=== PATIENT | female | born 1950 | race Caucasian/White ===

== ENCOUNTER 2020-02-23 13:39 | Inpatient (IN) | payer MEDICARE ==
[2020-02-23] MEDS ORDERED: SODIUM CHLORIDE 0.9% 1,000 ML IV STA (14:09)
[2020-02-23] MEDS ORDERED: MORPHINE SULFATE 4 MG/ML SYRINGE IV STA (14:10)
[2020-02-23] MEDS ORDERED: ONDANSETRON 4 MG/2 ML VIAL IVP STA (14:10)
--- NOTE | 2020-02-23 14:13 | ED ---
General Adult HPI - General Chief complaint: Nausea/Vomiting/Diarrhea Stated complaint: Dehydrated,Low BP Time Seen by Provider: 02/23/20 13:58 Source: patient, RN notes reviewed, old records reviewed Mode of arrival: ambulatory Limitations: no limitations - History of Present Illness Initial comments: 79-year-old female presenting for evaluation of abdominal pain, nausea vomiting. Patient was seen at urgent care and sent to the emergency department for evaluation of a symptoms as well as dehydration. Patient's denies chest pain or dyspnea. She complains of nausea and diffuse abdominal pain which is crampy in nature. This is been ongoing for the past 4 days. She states she had one small bowel movement, no diarrhea, she states she is still passing gas. 4 episodes of vomiting today. She denies cough or URI symptoms. Denies fever. Denies dysuria. - Related Data Allergies Allergy/AdvReac Type Severity Reaction Status Date / Time No Known Allergies Allergy Verified 02/23/20 13:47 Review of Systems ROS Statement: Those systems with pertinent positive or pertinent negative responses have been documented in the HPI. ROS Other: All systems not noted in ROS Statement are negative. Past Medical History Additional Past Medical History / Comment(s): congenital heart defecits History of Any Multi-Drug Resistant Organisms: None Reported Past Surgical History: Cardiac Valve Replacement, Coronary Bypass/CABG, Hernia Repair Past Psychological History: No Psychological Hx Reported Smoking Status: Never smoker Past Alcohol Use History: None Reported Past Drug Use History: None Reported General Exam Limitations: no limitations General appearance: alert, in no apparent distress Head exam: Present: atraumatic, normocephalic Eye exam: Present: normal appearance, PERRL ENT exam: Present: mucous membranes dry Neck exam: Present: normal inspection. Absent: tenderness, meningismus Respiratory exam: Present: normal lung sounds bilaterally. Absent: respiratory distress, wheezes Cardiovascular Exam: Present: normal rhythm, tachycardia, systolic murmur GI/Abdominal exam: Present: distended, tenderness. Absent: guarding, rebound Back exam: Present: normal inspection, full ROM Neurological exam: Present: alert, oriented X3, CN II-XII intact. Absent: motor sensory deficit Psychiatric exam: Present: normal affect, normal mood Skin exam: Present: warm, dry, intact. Absent: cyanosis, diaphoretic Course Vital Signs 02/23/20 02/23/20 13:43 14:37 Temperature 97.5 F L 99.0 F Pulse Rate 117 H Respiratory 18 Rate Blood Pressure 97/63 O2 Sat by Pulse 93 L Oximetry EKG Findings - EKG Comments: EKG Findings:: EKG: Sinus tachycardia, PVC T-wave inversion in V2 and V3, no ST segment elevation, rate of 111, AL interval 188, QRS duration 90, QTC 465 Medical Decision Making - Medical Decision Making 69-year-old female presenting with abdominal pain and vomiting. History of valve replacement on Coumadin and congestive heart defect with history of multiple cardiac procedures. Patient states this is an aortic valve mechanical. Patient has a distended abdomen with mild tenderness to palpation. Significant lab abnormalities including leukocytosis, white blood cell count 22, INR is elevated at 6.3, she is a sodium of 140, potassium of 3.0 which is replaced. She has a lactic acid of 5.5 which is significantly elevated. She has a hyperbilirubinemia at 7.2 and a transaminitis. She has greater than 20,000 and lipase consistent with pancreatitis. CT shows acute cholecystitis and dilated common bile duct, concern for ascending cholangitis, gallstone pancreatitis, and acute cholecystitis. IV antibiotics were initiated in the emergency department. I discussed case with the admitting physician Dr. Holland, general surgery Dr. Jara, gastroenterology Dr. Astorga, and the tank house operator Dr. Chisholm, and Dr. Astorga from cardiology. Ultrasound is pending. - Lab Data Result diagrams: 02/23/20 14:15 02/23/20 14:15 Lab Results 02/23/20 02/23/20 02/23/20 Range/Units 14:14 14:15 14:15 WBC 22.4 H (3.8-10.6) k/uL RBC 5.46 H (3.80-5.40) m/uL Hgb 14.1 (11.4-16.0) gm/dL Hct 42.7 (34.0-46.0) % MCV 78.3 L (80.0-100.0) fL MCH 25.8 (25.0-35.0) pg MCHC 33.0 (31.0-37.0) g/dL RDW 14.4 (11.5-15.5) % Plt Count 196 (150-450) k/uL Neutrophils % (Manual) 83 % Band Neutrophils % 12 % Lymphocytes % (Manual) 2 % Monocytes % (Manual) 3 % Neutrophils # (Manual) 21.20 H (1.3-7.7) k/uL Lymphocytes # (Manual) 0.45 L (1.0-4.8) k/uL Monocytes # (Manual) 0.67 (0-1.0) k/uL Nucleated RBCs 0 (0-0) /100 WBC Manual Slide Review Performed Toxic Vacuolation Present Hypochromasia Slight PT (9.0-12.0) sec INR (<1.2) APTT (22.0-30.0) sec Sodium 130 L (137-145) mmol/L Potassium 3.0 L (3.5-5.1) mmol/L Chloride 95 L (98-107) mmol/L Carbon Dioxide 19 L (22-30) mmol/L Anion Gap 16 mmol/L BUN 18 H (7-17) mg/dL Creatinine 1.14 H (0.52-1.04) mg/dL Est GFR (CKD-EPI)AfAm 57 (>60 ml/min/1.73 sqM) Est GFR (CKD-EPI)NonAf 49 (>60 ml/min/1.73 sqM) Glucose 133 H (74-99) mg/dL Plasma Lactic Acid David (0.7-2.0) mmol/L Calcium 9.0 (8.4-10.2) mg/dL Total Bilirubin 7.2 H (0.2-1.3) mg/dL AST 432 H (14-36) U/L ALT 530 H (4-34) U/L Alkaline Phosphatase 396 H (38-126) U/L Troponin I (0.000-0.034) ng/mL Total Protein 7.2 (6.3-8.2) g/dL Albumin 4.2 (3.5-5.0) g/dL Amylase 5656 H* (30-110) U/L Lipase >69049 H (23-300) U/L Urine Color Light Yellow Urine Appearance Cloudy H (Clear) Urine pH 7.5 (5.0-8.0) Ur Specific [place] 1.009 (1.001-1.035) Urine Protein Negative (Negative) Urine Glucose (UA) Negative (Negative) Urine Ketones Negative (Negative) Urine Blood Negative (Negative) Urine Nitrite Negative (Negative) Urine Bilirubin Negative (Negative) Urine Urobilinogen <2.0 (<2.0) mg/dL Ur Leukocyte Esterase Small H (Negative) Urine RBC 1 (0-5) /hpf Urine WBC 9 H (0-5) /hpf Ur Squamous Epith Cells 13 H (0-4) /hpf Amorphous Sediment Occasional H (None) /hpf Urine Mucus Rare H (None) /hpf 02/23/20 02/23/20 02/23/20 Range/Units 14:15 14:15 14:15 WBC (3.8-10.6) k/uL RBC (3.80-5.40) m/uL Hgb (11.4-16.0) gm/dL Hct (34.0-46.0) % MCV (80.0-100.0) fL MCH (25.0-35.0) pg MCHC (31.0-37.0) g/dL RDW (11.5-15.5) % Plt Count (150-450) k/uL Neutrophils % (Manual) % Band Neutrophils % % Lymphocytes % (Manual) % Monocytes % (Manual) % Neutrophils # (Manual) (1.3-7.7) k/uL Lymphocytes # (Manual) (1.0-4.8) k/uL Monocytes # (Manual) (0-1.0) k/uL Nucleated RBCs (0-0) /100 WBC Manual Slide Review Toxic Vacuolation Hypochromasia PT 63.5 H (9.0-12.0) sec INR 6.3 H* (<1.2) APTT 40.8 H (22.0-30.0) sec Sodium (137-145) mmol/L Potassium (3.5-5.1) mmol/L Chloride (98-107) mmol/L Carbon Dioxide (22-30) mmol/L Anion Gap mmol/L BUN (7-17) mg/dL Creatinine (0.52-1.04) mg/dL Est GFR (CKD-EPI)AfAm (>60 ml/min/1.73 sqM) Est GFR (CKD-EPI)NonAf (>60 ml/min/1.73 sqM) Glucose (74-99) mg/dL Plasma Lactic Acid David 5.5 H* (0.7-2.0) mmol/L Calcium (8.4-10.2) mg/dL Total Bilirubin (0.2-1.3) mg/dL AST (14-36) U/L ALT (4-34) U/L Alkaline Phosphatase (38-126) U/L Troponin I <0.012 (0.000-0.034) ng/mL Total Protein (6.3-8.2) g/dL Albumin (3.5-5.0) g/dL Amylase (30-110) U/L Lipase (23-300) U/L Urine Color Urine Appearance (Clear) Urine pH (5.0-8.0) Ur Specific [place] (1.001-1.035) Urine Protein (Negative) Urine Glucose (UA) (Negative) Urine Ketones (Negative) Urine Blood (Negative) Urine Nitrite (Negative) Urine Bilirubin (Negative) Urine Urobilinogen (<2.0) mg/dL Ur Leukocyte Esterase (Negative) Urine RBC (0-5) /hpf Urine WBC (0-5) /hpf Ur Squamous Epith Cells (0-4) /hpf Amorphous Sediment (None) /hpf Urine Mucus (None) /hpf Critical Care Time Critical Care Time: Yes Total Critical Care Time: 35 Disposition Clinical Impression: Dehydration, Acute cholecystitis, Pancreatitis, Ascending cholangitis, Mechanical heart valve present, Supratherapeutic INR Disposition[facility] Condition: Serious Is patient prescribed a controlled substance at d/c from ED?: No Referrals: Nonstaff,Physician [Primary Care Provider] - 1-2 days Decision to Admit Reason: Admit from EC Decision Date: 02/23/20 Decision Time: 16:21
[2020-02-23 14:47] LABS: AST 432 U/L (14-36); African American GFR (CKD) 57 (>60 ml/min/1.73 sqM); Albumin 4.2 g/dL (3.5-5.0); Alkaline Phosphatase 396 U/L (38-126); Anion Gap 16 mmol/L; Blood Urea Nitrogen 18 mg/dL (7-17); Carbon Dioxide 19 mmol/L (22-30); Chloride 95 mmol/L (98-107); Glucose 133 mg/dL (74-99); Non-African American GFR(CKD) 49 (>60 ml/min/1.73 sqM); Sodium 130 mmol/L (137-145); Total Bilirubin 7.2 mg/dL (0.2-1.3); Total Protein 7.2 g/dL (6.3-8.2)
--- NOTE | 2020-02-23 14:49 | XR ---
EXAMINATION TYPE: XR KUB DATE OF EXAM: 02/23/2020 COMPARISON: NONE HISTORY: Pain TECHNIQUE: Single supine KUB image of the abdomen is obtained FINDINGS: Small bowel demonstrates no evidence for dilatation or air fluid levels. Gas and fecal material is seen in non-distended colon. No convincing evidence for pneumoperitoneum. No unusual calcifications. The lung bases are clear. The osseous structures are intact. IMPRESSION: 1. Overall nonobstructive bowel gas pattern.
[2020-02-23 14:56] LABS: ALT 530 U/L (4-34); HCT 42.7 % (34.0-46.0); HGB 14.1 gm/dL (11.4-16.0); Hypochromasia Slight; MCH 25.8 pg (25.0-35.0); MCV 78.3 fL (80.0-100.0); Mean Platelet Volume 7.9; Platelet Count 196 k/uL (150-450); RBC 5.46 m/uL (3.80-5.40); RDW 14.4 % (11.5-15.5); WBC 22.4 k/uL (3.8-10.6)
[2020-02-23 14:56] LABS: Color,Urine Light Yellow
[2020-02-23] MEDS ORDERED: SODIUM CHLORIDE 0.9% 500 ML 500 ML IV ONE ×2 (14:56→15:20)
[2020-02-23 14:57] LABS: Appearance,Urine Cloudy (Clear); PH, Urine 7.5 (5.0-8.0)
[2020-02-23 14:58] LABS: Specific Gravity,Urine 1.009 (1.001-1.035)
[2020-02-23 14:59] LABS: Glucose,Urine (UA) Negative (Negative); Ketones,Urine Negative (Negative); Protein,Urine Negative (Negative)
[2020-02-23 15:00] LABS: Bilirubin,Urine Negative (Negative); Blood,Urine Negative (Negative)
[2020-02-23 15:01] LABS: Nitrite,Urine Negative (Negative); Urobilinogen,Urine <2.0 mg/dL (<2.0)
[2020-02-23 15:02] LABS: Leukocyte Esterase,Urine Small (Negative); WBC,Urine 9 /hpf (0-5)
[2020-02-23 15:03] LABS: RBC,Urine 1 /hpf (0-5); Squamous Epithelial Cell,Urine 13 /hpf (0-4)
[2020-02-23 15:04] LABS: Amorphous Sediment,Urine Occasional /hpf; Mucus,Urine Rare /hpf
[2020-02-23] MEDS ORDERED: PIPERACILLIN-TAZOBACTAM 3.375 GM in SODIUM CHLORIDE 0.9% 100 ML IVPB STA (15:19)
[2020-02-23 15:20] LABS: Band Neutrophils % 12 %; Lymphocytes # (M) 0.45 k/uL (1.0-4.8); Monocytes # (M) 0.67 k/uL (0-1.0); Neutrophils % (M) 83 %; Nucleated Red Blood Cells 0 /100 WBC (0-0); Total Cells Counted 100
[2020-02-23 15:22] LABS: Partial Thromboplastin Time 40.8 sec (22.0-30.0); Prothrombin Time 63.5 sec (9.0-12.0)
[2020-02-23 15:24] LABS: INR 6.3 (<1.2)
[2020-02-23 15:27] LABS: Toxic Vacuolation Present
[2020-02-23 15:30] LABS: Amylase 5656 U/L (30-110)
[2020-02-23] MEDS: SODIUM CHLORIDE 0.9% 1,000 ML IV SCH (15:45)
--- NOTE | 2020-02-23 15:50 | CT ---
EXAMINATION TYPE: CT abdomen pelvis w con DATE OF EXAM: 02/23/2020 COMPARISON: None HISTORY: ABDOMINAL PAIN CT DLP: 1529 mGycm CONTRAST: CT scan of the abdomen and pelvis is performed without Oral Contrast and with IV Contrast, patient in jected with 100 mL of Isovue 300. FINDINGS: LUNG BASES-: No visible nodule. No infiltrate. LIVER/GB: The gallbladder is distended with mildly thickened wall and pericholecystic fluid. Common bile duct is dilated at approximately 1.5 cm. Obstructing calculus is not identified with certainty. Mild intrahepatic biliary ductal prominence. No space occupying hepatic lesion. PANCREAS: No inflammation. No distinct mass. SPLEEN: No splenic enlargement. No lesion seen. ADRENALS: No nodule. No thickening. KIDNEYS/BLADDER: No hydronephrosis. No nephrolithiasis. No distinct renal mass. Urinary bladder g rossly unremarkable. BOWEL: Normal appendix. Normal bowel caliber. No inflammation. GENITAL ORGANS: Uterine mass may reflect leiomyomatous change. Consider ultrasound correlation. No o varian masses seen. LYMPH NODES: No greater than 1cm abdominal or pelvic lymph nodes are appreciated. AORTA: No significant abnormality. OSSEOUS STRUCTURES: No significant abnormality is seen. OTHER: No significant additional abnormality is seen. IMPRESSION: 1. Correlate for cholecystitis. 2. Uterine masses may reflect underlying leiomyomatous change. Consider ultrasound correlation to exc lude other possibilities.
[2020-02-23] MEDS ORDERED: NALOXONE 0.4 MG/ML 1 ML VIAL IV PRN (16:00)
--- NOTE | 2020-02-23 16:31 | US ---
EXAMINATION TYPE: US gallbladder DATE OF EXAM: 02/23/2020 COMPARISON: CT 2019 CLINICAL HISTORY: ab pain. Nausea EXAM MEASUREMENTS: Liver Length: 15.5 cm Gallbladder Wall: 0.3 cm CBD: 1.5 cm Right Kidney: 10.1 x 5.4 x 5.5 cm Pancreas: duct seen measuring 0.4cm Liver: attenuating, mildly heterogeneous, mild intrahepatic ductal dilation Gallbladder: hydropic, multiple small echogenic shadowing foci, wall measures wnl Evidence for sonographic Mosley's sign: no CBD: dilated Right Kidney: wnl IMPRESSION: Fatty liver with mild hepatic ductal dilatation. Gallbladder is hydropic with gallbladder wall thicke sameera and small gallstones. Common bile duct dilated. Rule out acute cholecystitis.
[2020-02-23] MEDS: POTASSIUM CHLORIDE 10 MEQ in WATER FOR INJECTION 1 100ML.BAG IVPB SCH ×4 (16:36→22:26)
[2020-02-23] MEDS ORDERED: PHYTONADIONE 10 MG in SODIUM CHLORIDE 0.9% 50 ML IVPB STA (16:42)
[2020-02-23 18:38] LABS: Amorphous Sediment,Urine Rare /hpf; Appearance,Urine Cloudy (Clear); Bacteria,Urine Rare /hpf; Bilirubin,Urine Negative (Negative); Blood,Urine Negative (Negative); Color,Urine Light Yellow; Glucose,Urine (UA) Negative (Negative); Hyaline Casts,Urine 1 /lpf (0-2); Ketones,Urine Negative (Negative); Leukocyte Esterase,Urine Small (Negative); Mucus,Urine Rare /hpf; Nitrite,Urine Negative (Negative); PH, Urine 7.5 (5.0-8.0); Protein,Urine Negative (Negative); RBC,Urine 2 /hpf (0-5); Specific Gravity,Urine 1.009 (1.001-1.035); Squamous Epithelial Cell,Urine <1 /hpf (0-4); Urobilinogen,Urine <2.0 mg/dL (<2.0); WBC,Urine 30 /hpf (0-5)
[2020-02-23 18:43] LABS: Glucose,Whole Blood 117 mg/dL (75-99)
--- NOTE | 2020-02-23 18:54 | P.HPIM ---
History of Present Illness H&P Date: 02/23/20 Chief Complaint: belly pain Patient is a 69-year-old female with history of congenital heart disease status post mechanical aortic valve replacement 2 on Coumadin therapy, hypothyroidism, and menopausal symptoms continued on estrogen cream presented to the emergency department with complaints of abdominal pain. Patient is visiting here from [place]. In the emergency department she underwent an extensive evaluation. On arrival she was found to be tachycardic with a pulse of 117 and hypotensive with a blood pressure of 97/63. Laboratory analysis showed a lactic acid of 5.5, INR 6.3, white blood cell count 22.4, bilirubin 7.2, AST 432, ALT 5:30, off: Phosphatase 369, amylase 5656, and lipase of greater than 20,000. Gallbladder ultrasound showed mild hepatic duct dilatation with hydrophilic gallbladder and gallbladder wall thickening with small gallstones or dilated common bile duct. CT abdomen and pelvis showed cholecystitis with uterine mass reflecting underlying leiomyomatous changes. She was subsequently diagnosed with ascending cholangitis with sepsis. She was started on IV fluids and Zosyn. Cardiology was contacted for need for INR reversal, GI was contacted and plans for ERCP, surgery was contacted, and critical care was contacted. Arrangements were made for admission to the ICU. Abdomainal pain epigastric 9/10 constant for 5 -7 days, tylenol not helping, eating seems to make it worse today Vomiting 2 times 5 days ago and then 4 times today, worse with eating. Decreased urination today, darker in color, no odor No change in stool consistency or color. One day of fever 101 at home + fatigued and tired 6 pound weight loss without trying over the last several months No eating or sleeping for 5 days. No shortness of breath or cough. No recent changes in medications. HX of congenital heart disease surgery as a child, then repeat surgery and finally 2 aortic valve replacements. Follows with Dr. Easton out of [place]. Primary care physician is Dr. Amada Kong out of [place]. Review of Systems Pertinent positives and negatives as discussed in HPI, a complete review of systems was performed and all other systems are negative. Past Medical History Past Medical History: Hyperlipidemia Additional Past Medical History / Comment(s): congenital heart defecits, hypothyroidism History of Any Multi-Drug Resistant Organisms: None Reported Past Surgical History: Cardiac Valve Replacement, Hernia Repair Additional Past Surgical History / Comment(s): umbilica herina reparin, Mechanical aortic valve replacement X 2 and congential heart disease surgery Past Psychological History: No Psychological Hx Reported Smoking Status: Never smoker Past Alcohol Use History: None Reported Past Drug Use History: None Reported - Past Family History Father Additional Family Medical History / Comment(s): bladder cancer, tobacco abuse Mother Family Medical History: Hypertension Brother(s) Additional Family Medical History / Comment(s): of AIDS. Seocnd brother with CLL Medications and Allergies Home Medications Medication Instructions Recorded Confirmed Type Biest 1 (50/50)Mg Cream 1 applic TOPICAL HS 02/23/20 02/23/20 History Thyroid,Pork [[place] Thyroid] 90 mg PO DAILY 02/23/20 02/23/20 History Warfarin [Coumadin] 2.5 mg PO Q48H 02/23/20 02/23/20 History Warfarin [Coumadin] 5 mg PO Q48H 02/23/20 02/23/20 History Allergies Allergy/AdvReac Type Severity Reaction Status Date / Time No Known Allergies Allergy Verified 02/23/20 17:00 Physical Exam Osteopathic Statement: *. No significant issues noted on an osteopathic structural exam other than those noted in the History and Physical/Consult. Vitals: Vital Signs Temp Pulse Resp BP Pulse Ox 02/23/20 14:37 99.0 F 02/23/20 13:43 97.5 F L 117 H 18 97/63 93 L Intake and Output 02/23/20 02/23/20 02/23/20 06:59 14:59 22:59 Other: Weight 86.183 kg General: Ill-appearing, moderate distress secondary to pain, appears at stated age, normal weight Derm: no unusual rashes/lesions no unusual ecchymoses, warm, dry Head: atraumatic, normocephalic, symmetric Eyes: EOMI, no lid lag, anicteric sclera, pupils equal round reactive to light ENT: Nose and ears atraumatic, no thrush, no pharyngeal erythema Neck: No thyromegaly, no cervical lymphadenopathy, trachea midline, supple Mouth: no lip lesion, mucus membranes dry Cardiovascular: S1S2 tachycardic with grade 3 systolic ejection murmur with mid systolic click, positive posterior tibial pulse bilateral, no edema, capillary refill less than 2 seconds Lungs: Decreased breath sounds bilaterally, no rhonchi, no rales , no accessory muscle use Abdominal: soft, tender to palpation right upper quadrant, no guarding, no appreciable organomegaly, hypoactive bowel sounds Ext: no gross muscle atrophy, muscle strength 5 out of 5 in all 4 extremities grossly, no contractures, Neuro: CN II-XI grossly intact, light touch intact all 4 extremities, finger to nose within normal limits, Psych: Alert, oriented, appears lethargic with difficulty concentrating Results CBC & Chem 7: 02/23/20 14:15 02/23/20 14:15 Labs: Abnormal Lab Results - Last 24 Hours (Table) 02/23/20 02/23/20 02/23/20 Range/Units 14:14 14:15 14:15 WBC 22.4 H (3.8-10.6) k/uL RBC 5.46 H (3.80-5.40) m/uL MCV 78.3 L (80.0-100.0) fL Neutrophils # (Manual) 21.20 H (1.3-7.7) k/uL Lymphocytes # (Manual) 0.45 L (1.0-4.8) k/uL PT (9.0-12.0) sec INR (<1.2) APTT (22.0-30.0) sec Sodium 130 L (137-145) mmol/L Potassium 3.0 L (3.5-5.1) mmol/L Chloride 95 L (98-107) mmol/L Carbon Dioxide 19 L (22-30) mmol/L BUN 18 H (7-17) mg/dL Creatinine 1.14 H (0.52-1.04) mg/dL Glucose 133 H (74-99) mg/dL Plasma Lactic Acid David (0.7-2.0) mmol/L Total Bilirubin 7.2 H (0.2-1.3) mg/dL AST 432 H (14-36) U/L ALT 530 H (4-34) U/L Alkaline Phosphatase 396 H (38-126) U/L Amylase 5656 H* (30-110) U/L Lipase >86750 H (23-300) U/L Urine Appearance Cloudy H (Clear) Ur Leukocyte Esterase Small H (Negative) Urine WBC 9 H (0-5) /hpf Ur Squamous Epith Cells 13 H (0-4) /hpf Amorphous Sediment Occasional H (None) /hpf Urine Mucus Rare H (None) /hpf 02/23/20 02/23/20 Range/Units 14:15 14:15 WBC (3.8-10.6) k/uL RBC (3.80-5.40) m/uL MCV (80.0-100.0) fL Neutrophils # (Manual) (1.3-7.7) k/uL Lymphocytes # (Manual) (1.0-4.8) k/uL PT 63.5 H (9.0-12.0) sec INR 6.3 H* (<1.2) APTT 40.8 H (22.0-30.0) sec Sodium (137-145) mmol/L Potassium (3.5-5.1) mmol/L Chloride (98-107) mmol/L Carbon Dioxide (22-30) mmol/L BUN (7-17) mg/dL Creatinine (0.52-1.04) mg/dL Glucose (74-99) mg/dL Plasma Lactic Acid David 5.5 H* (0.7-2.0) mmol/L Total Bilirubin (0.2-1.3) mg/dL AST (14-36) U/L ALT (4-34) U/L Alkaline Phosphatase (38-126) U/L Amylase (30-110) U/L Lipase (23-300) U/L Urine Appearance (Clear) Ur Leukocyte Esterase (Negative) Urine WBC (0-5) /hpf Ur Squamous Epith Cells (0-4) /hpf Amorphous Sediment (None) /hpf Urine Mucus (None) /hpf Chest x-ray: report reviewed Abdominal x-ray: report reviewed CT scan - abdomen: report reviewed CT scan - pelvis: report reviewed US - abdomen: report reviewed Thrombosis Risk Factor Assmnt - DVT/VTE Prophylaxis DVT/VTE Prophylaxis: Pharmacologic Prophylaxis ordered Assessment and Plan Assessment: Acute cholangitis with sepsis - GI and general surgery consultation, likely ERCP in a.m. -Zosyn -Blood cultures -IV fluids -Nothing by mouth, Ice chips to keep mouth moist -Follow blood pressures closely Acute liver failure likely secondary to obstruction due to gallstones -GI recommendations -Liver ultrasound does show mildly heterogeneous liver -Follow LFTs closely -If does not improve will check hepatitis profiles Coumadin coagulopathy with supratherapeutic INR -Vitamin K and FFP secondary to surgical procedure in a.m. -Repeat INR in 6 hours -Repeat INR in a.m. -Discussed with cardiology who is okay with reversible, will need heparin drip after surgical procedure. Aortic valve replacement secondary to congenital heart disease -Cardiology recommendations appreciated -Check echo in a.m. -Reverse Coumadin -Heparin drip when able after surgical procedure Hyponatremia -Suspect secondary to dehydration -IV fluids -Repeat in a.m. Hypokalemia -Replacement -Repeat in a.m. Metabolic acidosis secondary to lactic acidosis Acute kidney injury versus chronic kidney disease -Avoid nephrotoxic agents -IV fluids -Repeat CMP in a.m. Suspect gallstone pancreatitis which is early onset as no changes on computed tomography scan -Lipase greater than 20,000 -IV fluids -Nothing by mouth -Repeat in a.m. Lactic acidosis secondary to sepsis and liver dysfunction -IV fluids -Follow lactic acid Hypothyroidism -Thyroid medications on hold The patient is admitted with an anticipated greater than 2 midnight stay for evaluation of acute cholangitis with sepsis. Surrogate decision-maker: Brother CODE STATUS: Full DVT prophylaxis: Supratherapeutic INR Discussed with: Patient, nursing, brother, ED physician Anticipated discharge date: 4-[address]: Home A total of 75 minutes was spent on the care of this complex patient more than 50% of the time was spent in counseling and care coordination.
--- NOTE | 2020-02-23 19:50 | CONS ---
CONSULTATION CHIEF COMPLAINT: Ascending cholangitis. This is a 69-year-old lady with history of congenital heart disease, status post surgery when she was very young, and subsequently she has had aortic valve replacement, has had valve replacement with a mechanical valve x2. It is unclear if she had a bypass surgery also. She came to hospital complaining of abdominal pain, nausea and vomiting. Symptoms have been going on for the last 4 days. She has ascending cholangitis and has coagulopathy. Her INR is elevated. Patient is to undergo an ERCP tomorrow. Currently her Coumadin is being reversed with vitamin K and FFP. She lives in [place] and spends her gleason here in [place]. Does not have any local physicians. We do not have her records. The patient has a significantly elevated white cell count and has already received a dose of antibiotic and blood cultures have been done. EKG shows sinus tachycardia, nonspecific ST-T wave changes and PVCs. The patient can proceed with ERCP as has been planned. She is already being covered by antibiotics. I will obtain a 2D echo to assess the prosthetic valve. We really do not have any choice but to reverse her Coumadin at this time, and once the ERCP is done, we can put her on IV heparin while she goes through cholecystectomy; and whenever it is safe, we can put her back on Coumadin. Will follow blood cultures. I will follow the echo. PAST MEDICAL HISTORY: Past medical history is significant for: 1. Congenital heart disease, status post surgery. 2. Status post aortic valve replacement. 3. Hypothyroidism. MEDICATIONS: Medications at home include Coumadin and Synthroid. ALLERGIES: NO KNOWN DRUG ALLERGIES. FAMILY HISTORY: Negative for premature coronary artery disease. SOCIAL HISTORY: Negative for current smoking, EtOH abuse or drug abuse. REVIEW OF SYSTEMS: HEENT is unremarkable. CARDIAC: As described above. RESPIRATORY: As described above. GI: As described above. GENITOURINARY: Negative. ALLERGY: Negative. IMMUNOLOGY: Negative. SKIN: Negative. MUSCULOSKELETAL: Negative. ENDOCRINE: Negative. CONSTITUTIONAL: Significant for fatigue, tiredness. PHYSICAL EXAMINATION: Temperature is 99, heart rate 117, blood pressure 91/60, respiratory rate 18. There is jugular venous distention. Chest exam reveals good air entry bilaterally. Heart exam reveals first and second heart sounds. Mechanical valve sound is heard. ABDOMEN: Soft. Examination of extremities did not reveal any edema. Peripheral pulses are felt. LABS: Hemoglobin is 14, white cell count is 22, platelet count is 196. INR is elevated at 6.3. Potassium is 3. AST, ALT are elevated at 430 and 530. Total bilirubin is 7.2. Lactic acid is 5.3. Lipase is elevated, as is the amylase. ASSESSMENT: 1. Ascending cholangitis. 2. Status post mechanical aortic valve replacement. 3. Coagulopathy. PLAN: Blood cultures, IV antibiotics, 2D echo. Will review records from her adjunct english instructor. Agree with reversing Coumadin. Will bridge her with heparin as she goes through these surgical procedures. No contraindication for surgery under anesthesia at this time. The patient is critically ill and she needs to proceed with surgical interventions expeditiously. LANDRYODL / IJN: [id number] /
[2020-02-23] MEDS: ONDANSETRON 4 MG/2 ML VIAL IVP PRN (22:39)
[2020-02-23] MEDS ORDERED: SODIUM CHLORIDE 0.9% 1,000 ML IV ONE (22:51)
[2020-02-23 23:46] LABS: INR 2.5 (<1.2); Prothrombin Time 24.6 sec (9.0-12.0)
[2020-02-23] MEDS: PIPERACILLIN-TAZOBACTAM 3.375 GM in SODIUM CHLORIDE 0.9% 100 ML IVPB SCH (23:55)
[2020-02-24] MEDS: HYDROmorphone 0.5 MG/0.5 ML SYRINGE IVP PRN ×3 (01:00→07:23)
--- NOTE | 2020-02-24 01:47 | CT ---
EXAMINATION TYPE: CT abdomen pelvis wo con DATE OF EXAM: 02/24/2020 COMPARISON: Yesterday HISTORY: abd pain CT DLP: 1119.4 mGycm Automated exposure control for dose reduction was used. Images were obtained from the diaphragm to the floor the pelvis without contrast. FINDINGS: There is patchy infiltrate and atelectasis at both lung bases. There is no pericardial effusion. Hear t appears slightly enlarged. There is valve surgery at the aortic valve. Liver shows no focal defect. Gallbladder is distended and measures 4.7 cm. The intrahepatic bile duct s are not dilated. Spleen is intact. There is no pancreatic mass. The stomach is intact. There is no adrenal mass. There is contrast in both kidneys from previous CT scan. There is no hydron ephrosis. Ureters are not dilated. There is no retroperitoneal adenopathy. There is Salazar catheter in the urinary bladder. Bladder is empty. There is no evidence of a pelvic mass. Uterus is anteverted. There is no free fluid in the pelvis. Lumbar spine is intact. There is no compression fracture. The b radha pelvis appears intact. There is no mesenteric edema. There is no ascites or free air. There is bilateral perinephric fat str anding. I see no sign of thickened appendix. IMPRESSION: Dilated gallbladder similar to exam yesterday that could relate to cholecystitis. Common bile duct is large and measures 1.3 cm that could relate to chronic gallbladder dysfunction. Intrahepatic bile du cts are not dilated. There is bilateral perinephric fat stranding and edema that is a change compared to yesterday. This c ould relate to nonspecific nephritis. CT scan yesterday shows very little contrast in the renal colle cting system on the delayed images that may indicate some renal failure.
[2020-02-24] MEDS ORDERED: HYDROmorphone 0.5 MG/0.5 ML SYRINGE IVP STA (02:40)
[2020-02-24] MEDS: SODIUM CHLORIDE 0.9% 1,000 ML IV SCH ×3 (02:46→17:12)
[2020-02-24] MEDS: NOREPINEPHRINE 4 MG in SODIUM CHLORIDE 0.9% 250 ML IV SCH ×2 (04:50→17:12)
[2020-02-24 05:08] LABS: Albumin 3.3 g/dL (3.5-5.0); Calcium 7.6 mg/dL (8.4-10.2); Magnesium 1.4 mg/dL (1.6-2.3); Phosphorus 4.8 mg/dL (2.5-4.5); Potassium 3.9 mmol/L (3.5-5.1); Total Bilirubin 7.8 mg/dL (0.2-1.3); Total Protein 6.2 g/dL (6.3-8.2)
[2020-02-24 05:21] LABS: Prothrombin Time 19.1 sec (9.0-12.0)
[2020-02-24 05:39] LABS: HCT 38.5 % (34.0-46.0); Hypochromasia Slight; MCH 24.9 pg (25.0-35.0); MCHC 31.2 g/dL (31.0-37.0); MCV 79.8 fL (80.0-100.0); Mean Platelet Volume 7.8; RBC 4.83 m/uL (3.80-5.40); RDW 15.1 % (11.5-15.5); WBC 16.9 k/uL (3.8-10.6)
[2020-02-24] MEDS ORDERED: Potassium Replacement Protocol 1 EACH MISC MISCELLANE PRN (05:42)
[2020-02-24] MEDS ORDERED: Magnesium Replacement Protocol 1 EACH MISC MISCELLANE PRN (05:44)
[2020-02-24] MEDS: POTASSIUM CHLORIDE 10 MEQ in WATER FOR INJECTION 1 100ML.BAG IVPB SCH ×2 (06:12→07:33)
[2020-02-24] MEDS: MAGNESIUM SULFATE-D5W PMX 1 GM in DEXTROSE/WATER 1 100ML.BAG IVPB SCH ×3 (06:13→11:51)
[2020-02-24 07:12] LABS: Amylase 2143 U/L (30-110)
--- NOTE | 2020-02-24 08:15 | XR ---
EXAMINATION TYPE: XR chest 1V portable DATE OF EXAM: 02/24/2020 Comparison: None Clinical History: 69-year-old female with exertional dyspnea Findings: Median sternotomy wires are present with clips in the mediastinum and a prosthetic cardiac valve. Hea rt upper limits of normal in size. Mild interstitial prominence. Small effusions with bibasilar patch y opacities. Impression: Correlate for mild pulmonary vascular congestion. Small effusions with adjacent bibasilar atelectasis and/or consolidation.
[2020-02-24] MEDS: PANTOPRAZOLE 40 MG/10 ML VIAL IV SCH (08:22)
[2020-02-24 08:23] LABS: Band Neutrophils % 25 %; Lymphocytes # (M) 0.68 k/uL (1.0-4.8); Metamyelocytes # (M) 0.68 k/uL (0); Metamyelocytes % 4 %; Monocytes # (M) 0.34 k/uL (0-1.0); Neutrophils % (M) 66 %; Nucleated Red Blood Cells 0 /100 WBC (0-0); Total Cells Counted 200
[2020-02-24 08:24] LABS: Toxic Granulation Present; Toxic Vacuolation Present
[2020-02-24] MEDS: PIPERACILLIN-TAZOBACTAM 3.375 GM in SODIUM CHLORIDE 0.9% 100 ML IVPB SCH ×3 (08:25→23:35)
[2020-02-24 08:35] LABS: Anisocytosis (M) Present; Platelet Count 99 k/uL (150-450); Poikilocytosis (M) Present
[2020-02-24] MEDS: LACTATED RINGERS 2,000 ML IV SCH ×2 (09:00→11:52)
--- NOTE | 2020-02-24 09:02 | P.GSCN ---
History of Present Illness Consult date: 02/24/20 Reason for Consult: Abdominal pain History of present illness: This a 69-year-old female who has a 5-7 day history of acute abdominal pain. Weston ervin states the pain worsened yesterday. Patient was admitted through the emergency room. Patient was thought to have cholangitis. She does have evidence of thickened gallbladder wall cholelithiasis and pancreatitis suggestive of gallstone pancreatitis. Patient states her pain is quite signific ant the epigastric area radiating to her back. She feels distended and bloated. 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, hypothyroidism History of Any Multi-Drug Resistant Organisms: None Reported Past Surgical History: Cardiac Valve Replacement, Coronary Bypass/CABG, Hernia Repair, Hysterectomy, Tonsillectomy Additional Past Surgical History / Comment(s): umbilica herina reparin, Mechanical aortic valve replacement X 2 and congential heart disease surgery, left fallopian tube removal Past Anesthesia/Blood Transfusion Reactions: No Reported Reaction Past Psychological History: No Psychological Hx Reported Smoking Status: Never smoker Past Alcohol Use History: None Reported Past Drug Use History: None Reported - Past Family History Father Family Medical History: Cancer Additional Family Medical History / Comment(s): bladder cancer, tobacco abuse. Mother Family Medical History: Hypertension Brother(s) Additional Family Medical History / Comment(s): brother of AIDS, seocnd brother with CLL. Medications and Allergies Home Medications Medication Instructions Recorded Confirmed Type Biest 1 (50/50)Mg Cream 1 applic TOPICAL HS 02/23/20 02/23/20 History Thyroid,Pork [Pope Thyroid] 90 mg PO DAILY 02/23/20 02/23/20 History Warfarin [Coumadin] 2.5 mg PO Q48H 02/23/20 02/23/20 History Warfarin [Coumadin] 5 mg PO Q48H 02/23/20 02/23/20 History Allergies Allergy/AdvReac Type Severity Reaction Status Date / Time No Known Allergies Allergy Verified 02/23/20 17:00 Surgical - Exam Vital Signs Temp Pulse Resp BP Pulse Ox 97.5 F L 117 H 18 97/63 93 L 02/23/20 13:43 02/23/20 13:43 02/23/20 13:43 02/23/20 13:43 02/23/20 13:43 - General well developed, well nourished, no distress - Eyes PERRL - ENT normal pinna - Neck no masses - Respiratory normal expansion - Cardiovascular Rhythm: regular - Abdomen Abdomen is distended. There is marked tenderness through the epigastric area. Abdomen: soft Results - Labs 02/24/20 04:30 02/24/20 04:30 Abnormal Lab Results - Last 24 Hours (Table) 02/23/20 02/23/20 02/23/20 Range/Units 14:14 14:15 14:15 WBC 22.4 H (3.8-10.6) k/uL RBC 5.46 H (3.80-5.40) m/uL MCV 78.3 L (80.0-100.0) fL MCH (25.0-35.0) pg Plt Count (150-450) k/uL Neutrophils # (Manual) 21.20 H (1.3-7.7) k/uL Lymphocytes # (Manual) 0.45 L (1.0-4.8) k/uL Metamyelocytes # (Man) (0) k/uL PT (9.0-12.0) sec INR (<1.2) APTT (22.0-30.0) sec Sodium 130 L (137-145) mmol/L Potassium 3.0 L (3.5-5.1) mmol/L Chloride 95 L (98-107) mmol/L Carbon Dioxide 19 L (22-30) mmol/L BUN 18 H (7-17) mg/dL Creatinine 1.14 H (0.52-1.04) mg/dL Glucose 133 H (74-99) mg/dL POC Glucose (mg/dL) (75-99) mg/dL Plasma Lactic Acid David (0.7-2.0) mmol/L Calcium (8.4-10.2) mg/dL Phosphorus (2.5-4.5) mg/dL Magnesium (1.6-2.3) mg/dL Total Bilirubin 7.2 H (0.2-1.3) mg/dL AST 432 H (14-36) U/L ALT 530 H (4-34) U/L Alkaline Phosphatase 396 H (38-126) U/L Total Protein (6.3-8.2) g/dL Albumin (3.5-5.0) g/dL Amylase 5656 H* (30-110) U/L Lipase >81146 H (23-300) U/L Urine Appearance Cloudy H (Clear) Ur Leukocyte Esterase Small H (Negative) Urine WBC 9 H (0-5) /hpf Ur Squamous Epith Cells 13 H (0-4) /hpf Amorphous Sediment Occasional H (None) /hpf Urine Bacteria (None) /hpf Urine Mucus Rare H (None) /hpf 02/23/20 02/23/20 02/23/20 Range/Units 14:15 14:15 17:10 WBC (3.8-10.6) k/uL RBC (3.80-5.40) m/uL MCV (80.0-100.0) fL MCH (25.0-35.0) pg Plt Count (150-450) k/uL Neutrophils # (Manual) (1.3-7.7) k/uL Lymphocytes # (Manual) (1.0-4.8) k/uL Metamyelocytes # (Man) (0) k/uL PT 63.5 H (9.0-12.0) sec INR 6.3 H* (<1.2) APTT 40.8 H (22.0-30.0) sec Sodium (137-145) mmol/L Potassium (3.5-5.1) mmol/L Chloride (98-107) mmol/L Carbon Dioxide (22-30) mmol/L BUN (7-17) mg/dL Creatinine (0.52-1.04) mg/dL Glucose (74-99) mg/dL POC Glucose (mg/dL) (75-99) mg/dL Plasma Lactic Acid David 5.5 H* 5.3 H* (0.7-2.0) mmol/L Calcium (8.4-10.2) mg/dL Phosphorus (2.5-4.5) mg/dL Magnesium (1.6-2.3) mg/dL Total Bilirubin (0.2-1.3) mg/dL AST (14-36) U/L ALT (4-34) U/L Alkaline Phosphatase (38-126) U/L Total Protein (6.3-8.2) g/dL Albumin (3.5-5.0) g/dL Amylase (30-110) U/L Lipase (23-300) U/L Urine Appearance (Clear) Ur Leukocyte Esterase (Negative) Urine WBC (0-5) /hpf Ur Squamous Epith Cells (0-4) /hpf Amorphous Sediment (None) /hpf Urine Bacteria (None) /hpf Urine Mucus (None) /hpf 02/23/20 02/23/20 02/23/20 Range/Units 18:05 18:41 20:04 WBC (3.8-10.6) k/uL RBC (3.80-5.40) m/uL MCV (80.0-100.0) fL MCH (25.0-35.0) pg Plt Count (150-450) k/uL Neutrophils # (Manual) (1.3-7.7) k/uL Lymphocytes # (Manual) (1.0-4.8) k/uL Metamyelocytes # (Man) (0) k/uL PT (9.0-12.0) sec INR (<1.2) APTT (22.0-30.0) sec Sodium (137-145) mmol/L Potassium (3.5-5.1) mmol/L Chloride (98-107) mmol/L Carbon Dioxide (22-30) mmol/L BUN (7-17) mg/dL Creatinine (0.52-1.04) mg/dL Glucose (74-99) mg/dL POC Glucose (mg/dL) 117 H (75-99) mg/dL Plasma Lactic Acid David 4.4 H* (0.7-2.0) mmol/L Calcium (8.4-10.2) mg/dL Phosphorus (2.5-4.5) mg/dL Magnesium (1.6-2.3) mg/dL Total Bilirubin (0.2-1.3) mg/dL AST (14-36) U/L ALT (4-34) U/L Alkaline Phosphatase (38-126) U/L Total Protein (6.3-8.2) g/dL Albumin (3.5-5.0) g/dL Amylase (30-110) U/L Lipase (23-300) U/L Urine Appearance Cloudy H (Clear) Ur Leukocyte Esterase Small H (Negative) Urine WBC 30 H (0-5) /hpf Ur Squamous Epith Cells (0-4) /hpf Amorphous Sediment Rare H (None) /hpf Urine Bacteria Rare H (None) /hpf Urine Mucus Rare H (None) /hpf 02/23/20 02/23/20 02/24/20 Range/Units 23:09 23:09 01:49 WBC (3.8-10.6) k/uL RBC (3.80-5.40) m/uL MCV (80.0-100.0) fL MCH (25.0-35.0) pg Plt Count (150-450) k/uL Neutrophils # (Manual) (1.3-7.7) k/uL Lymphocytes # (Manual) (1.0-4.8) k/uL Metamyelocytes # (Man) (0) k/uL PT 24.6 H (9.0-12.0) sec INR 2.5 H (<1.2) APTT (22.0-30.0) sec Sodium (137-145) mmol/L Potassium (3.5-5.1) mmol/L Chloride (98-107) mmol/L Carbon Dioxide (22-30) mmol/L BUN (7-17) mg/dL Creatinine (0.52-1.04) mg/dL Glucose (74-99) mg/dL POC Glucose (mg/dL) (75-99) mg/dL Plasma Lactic Acid David 3.0 H* 2.6 H* (0.7-2.0) mmol/L Calcium (8.4-10.2) mg/dL Phosphorus (2.5-4.5) mg/dL Magnesium (1.6-2.3) mg/dL Total Bilirubin (0.2-1.3) mg/dL AST (14-36) U/L ALT (4-34) U/L Alkaline Phosphatase (38-126) U/L Total Protein (6.3-8.2) g/dL Albumin (3.5-5.0) g/dL Amylase (30-110) U/L Lipase (23-300) U/L Urine Appearance (Clear) Ur Leukocyte Esterase (Negative) Urine WBC (0-5) /hpf Ur Squamous Epith Cells (0-4) /hpf Amorphous Sediment (None) /hpf Urine Bacteria (None) /hpf Urine Mucus (None) /hpf 02/24/20 02/24/20 02/24/20 Range/Units 04:30 04:30 04:30 WBC 16.9 H (3.8-10.6) k/uL RBC (3.80-5.40) m/uL MCV 79.8 L (80.0-100.0) fL MCH 24.9 L (25.0-35.0) pg Plt Count 99 L (150-450) k/uL Neutrophils # (Manual) 15.30 H (1.3-7.7) k/uL Lymphocytes # (Manual) 0.68 L (1.0-4.8) k/uL Metamyelocytes # (Man) 0.68 H (0) k/uL PT 19.1 H (9.0-12.0) sec INR 2.0 H (<1.2) APTT (22.0-30.0) sec Sodium 131 L (137-145) mmol/L Potassium (3.5-5.1) mmol/L Chloride (98-107) mmol/L Carbon Dioxide 16 L (22-30) mmol/L BUN 24 H (7-17) mg/dL Creatinine (0.52-1.04) mg/dL Glucose 116 H (74-99) mg/dL POC Glucose (mg/dL) (75-99) mg/dL Plasma Lactic Acid David (0.7-2.0) mmol/L Calcium 7.6 L (8.4-10.2) mg/dL Phosphorus 4.8 H (2.5-4.5) mg/dL Magnesium 1.4 L (1.6-2.3) mg/dL Total Bilirubin 7.8 H (0.2-1.3) mg/dL AST 528 H (14-36) U/L ALT 568 H (4-34) U/L Alkaline Phosphatase 260 H (38-126) U/L Total Protein 6.2 L (6.3-8.2) g/dL Albumin 3.3 L (3.5-5.0) g/dL Amylase (30-110) U/L Lipase (23-300) U/L Urine Appearance (Clear) Ur Leukocyte Esterase (Negative) Urine WBC (0-5) /hpf Ur Squamous Epith Cells (0-4) /hpf Amorphous Sediment (None) /hpf Urine Bacteria (None) /hpf Urine Mucus (None) /hpf 02/24/20 Range/Units 06:04 WBC (3.8-10.6) k/uL RBC (3.80-5.40) m/uL MCV (80.0-100.0) fL MCH (25.0-35.0) pg Plt Count (150-450) k/uL Neutrophils # (Manual) (1.3-7.7) k/uL Lymphocytes # (Manual) (1.0-4.8) k/uL Metamyelocytes # (Man) (0) k/uL PT (9.0-12.0) sec INR (<1.2) APTT (22.0-30.0) sec Sodium (137-145) mmol/L Potassium (3.5-5.1) mmol/L Chloride (98-107) mmol/L Carbon Dioxide (22-30) mmol/L BUN (7-17) mg/dL Creatinine (0.52-1.04) mg/dL Glucose (74-99) mg/dL POC Glucose (mg/dL) (75-99) mg/dL Plasma Lactic Acid David (0.7-2.0) mmol/L Calcium (8.4-10.2) mg/dL Phosphorus (2.5-4.5) mg/dL Magnesium (1.6-2.3) mg/dL Total Bilirubin (0.2-1.3) mg/dL AST (14-36) U/L ALT (4-34) U/L Alkaline Phosphatase (38-126) U/L Total Protein (6.3-8.2) g/dL Albumin (3.5-5.0) g/dL Amylase 2143 H* (30-110) U/L Lipase 6079 H (23-300) U/L Urine Appearance (Clear) Ur Leukocyte Esterase (Negative) Urine WBC (0-5) /hpf Ur Squamous Epith Cells (0-4) /hpf Amorphous Sediment (None) /hpf Urine Bacteria (None) /hpf Urine Mucus (None) /hpf Microbiology - Last 24 Hours (Table) 02/23/20 16:08 Blood Culture - Final Blood 02/23/20 18:05 Urine Culture - Preliminary Urine,Voided Diabetes panel 02/23/20 02/24/20 Range/Units 14:15 04:30 Sodium 130 L 131 L (137-145) mmol/L Potassium 3.0 L 3.9 (3.5-5.1) mmol/L Chloride 95 L 104 (98-107) mmol/L Carbon Dioxide 19 L 16 L (22-30) mmol/L BUN 18 H 24 H (7-17) mg/dL Creatinine 1.14 H 0.93 (0.52-1.04) mg/dL Glucose 133 H 116 H (74-99) mg/dL Calcium 9.0 7.6 L (8.4-10.2) mg/dL AST 432 H 528 H (14-36) U/L ALT 530 H 568 H (4-34) U/L Alkaline Phosphatase 396 H 260 H (38-126) U/L Total Protein 7.2 6.2 L (6.3-8.2) g/dL Albumin 4.2 3.3 L (3.5-5.0) g/dL Calcium panel 02/23/20 02/24/20 Range/Units 14:15 04:30 Calcium 9.0 7.6 L (8.4-10.2) mg/dL Phosphorus 4.8 H (2.5-4.5) mg/dL Albumin 4.2 3.3 L (3.5-5.0) g/dL Pituitary panel 02/23/20 02/24/20 Range/Units 14:15 04:30 Sodium 130 L 131 L (137-145) mmol/L Potassium 3.0 L 3.9 (3.5-5.1) mmol/L Chloride 95 L 104 (98-107) mmol/L Carbon Dioxide 19 L 16 L (22-30) mmol/L BUN 18 H 24 H (7-17) mg/dL Creatinine 1.14 H 0.93 (0.52-1.04) mg/dL Glucose 133 H 116 H (74-99) mg/dL Calcium 9.0 7.6 L (8.4-10.2) mg/dL Adrenal panel 02/23/20 02/24/20 Range/Units 14:15 04:30 Sodium 130 L 131 L (137-145) mmol/L Potassium 3.0 L 3.9 (3.5-5.1) mmol/L Chloride 95 L 104 (98-107) mmol/L Carbon Dioxide 19 L 16 L (22-30) mmol/L BUN 18 H 24 H (7-17) mg/dL Creatinine 1.14 H 0.93 (0.52-1.04) mg/dL Glucose 133 H 116 H (74-99) mg/dL Calcium 9.0 7.6 L (8.4-10.2) mg/dL Total Bilirubin 7.2 H 7.8 H (0.2-1.3) mg/dL AST 432 H 528 H (14-36) U/L ALT 530 H 568 H (4-34) U/L Alkaline Phosphatase 396 H 260 H (38-126) U/L Total Protein 7.2 6.2 L (6.3-8.2) g/dL Albumin 4.2 3.3 L (3.5-5.0) g/dL - Imaging CT scan - abdomen: report reviewed (Thickened gallbladder wall suggestive of cholecystitis, no dilated intrahepatic bile ducts) Assessment and Plan Assessment: Cholecystitis with gallstone pancreas. Patient will receive fluid resuscitation and IV antibiotics. Her condition is guarded
[2020-02-24] MEDS: HYDROmorphone 1 MG/ML 1 ML SYRINGE IVP PRN ×2 (09:26→23:55)
--- NOTE | 2020-02-24 10:30 | ECHOF ---
Referral Reason:aortic valve MEASUREMENTS -------- HEIGHT: 170.2 cm WEIGHT: 93.9 kg BP: RVIDd: 2.3 cm (< 3.3) IVSd: 1.8 cm (0.6 - 1.1) LVIDd: 3.6 cm (3.9 - 5.3) LVPWd: 1.9 cm (0.6 - 1.1) IVSs: 1.7 cm LVIDs: 2.8 cm LVPWs: 2.0 cm Ao Diam: 2.9 cm (2.0 - 3.7) AV Cusp: 1.1 cm (1.5 - 2.6) LA Diam: 2.9 cm (2.7 - 3.8) MV EXCURSION: 23.601 mm (> 18.000) MV EF SLOPE: 47 mm/s (70 - 150) EPSS: 0.4 cm MV E Edis: 1.28 m/s MV DecT: 171 ms MV A Edis: 0.60 m/s MV E/A Ratio: 2.15 AV maxP.78 mmHg AV meanP.93 mmHg RAP: 5.00 mmHg RVSP: 45.68 mmHg FINDINGS -------- Sinus rhythm. This was a technically adequate study. The left ventricular size is normal. There is severe concentric left ventricular hypertrophy. Ove rall left ventricular systolic function is low-normal with, an EF between 50 - 55 %. There is parad oxical/dysynergic septal motion consistent with post-operative status. The right ventricle is normal in size. The left atrial size is normal. The right atrial size is normal. Peak/mean gradient across the Aortic Valve is 29.78mmHg / 24.93mmHg. Normally functioning mechanica l prosthetic valve. The mitral valve is normal. The mitral valve leaflets are mildly thickened. Mild mitral annular c alcification present. Mild mitral regurgitation is present. The tricuspid valve appears structurally normal. Moderate tricuspid regurgitation present. There is mild pulmonary hypertension. The right ventricular systolic pressure, as measured by Doppler, is 45.68mmHg. There is no pulmonic regurgitation present. The aortic root size is normal. IVC Not well visulized. There is no pericardial effusion. CONCLUSIONS -------- 1. Sinus rhythm. 2. This was a technically adequate study. 3. The left ventricular size is normal. 4. There is severe concentric left ventricular hypertrophy. 5. Overall left ventricular systolic function is low-normal with, an EF between 50 - 55 %. 6. There is paradoxical/dysynergic septal motion consistent with post-operative status. 7. The right ventricle is normal in size. 8. The left atrial size is normal. 9. The right atrial size is normal. 10. Peak/mean gradient across the Aortic Valve is 29.78mmHg / 24.93mmHg. 11. Normally functioning mechanical prosthetic valve. 12. The mitral valve is normal. 13. The mitral valve leaflets are mildly thickened. 14. Mild mitral annular calcification present. 15. Mild mitral regurgitation is present. 16. The tricuspid valve appears structurally normal. 17. Moderate tricuspid regurgitation present. 18. There is mild pulmonary hypertension. 19. The right ventricular systolic pressure, as measured by Doppler, is 45.68mmHg. 20. There is no pulmonic regurgitation present. 21. The aortic root size is normal. 22. IVC Not well visulized. 23. There is no pericardial effusion. WELL CLEANER: Winter Mendez RDCS
[2020-02-24 11:38] LABS: Glucose,Whole Blood 113 mg/dL (75-99)
[2020-02-24] MEDS ORDERED: INDOMETHACIN 50MG SUPPOSITORY RECTAL ONE (12:00)
[2020-02-24 12:30] LABS: INR 1.5 (<1.2); Prothrombin Time 14.7 sec (9.0-12.0)
--- NOTE | 2020-02-24 13:07 | CDI ---
Documentation Clarification Form Date: 02/24/2020 12:49:42 PM From: Marilyn Kaur RN, CCDS Admit Date: 02/23/2020 04:00:00 PM Patient Name: Ibis Tai Visit Number: [id number] ATTENTION: The Clinical Documentation Specialists (CDI) and [facility] Coding Staff appreciate your assistance in clarifying documentation. Please respond to the clarification below the line at the bottom and electronically sign. The CDI & [facility] Coding staff will review the response and follow-up if needed. Please note: Queries are made part of the Legal Health Record. If you have any questions, please contact the author of this message via ITS. Dr. Leonora Holland The patient was noted to be septic with hypotensive and maintained on vasopressors, with documented end organ damage. Patient history/risk factors: mechanical aortic valve with congenital heart disease Clinical Indicators: 02/22 H&P: On arrival she was found to be tachycardic with a pulse of 117 and hypotensive with a blood pressure of 97/63. Acute cholangitis with sepsis, Lactic acidosis secondary to sepsis and liver dysfunction -IV fluids, The patient is admitted with an anticipated greater than 2 midnight stay for evaluation of acute cholangitis with sepsis. Acute liver Failure, JOVANA, lactic acidosis" 02/22 1343 Admission Vitals: Temp 97.5, HR 117, RR 18, B/P 97/63, Spo2 93% RA 02/22 1903 V/S: Temp 98.6, HR 112, RR 35, and B/P 74/54, Spo2 95% 4 L NC 02/22 2000 V/S: Temp 99.4, HR 114, RR 35, B/P 87/51, Spo2 93% 4L NC Treatment: Levophed titrate for B/P 02/22 3L 0.9%NS Bolus followed by 125 cc/hr In your professional opinion, can you please specify the type of shock if known? Septic Shock Suspected or known causative organism Any associated organ failure Other, please specify Unable to determine (Last Revision: June 2017) Septic Shock MTDD
--- NOTE | 2020-02-24 13:17 | PN ---
PROGRESS NOTE Ibis is a 69-year-old lady with history of aortic valve replacement, who is admitted to hospital with ascending cholangitis and coagulopathy. This morning, after having received vitamin K, INR had come down to 2. She has also received FFP. She is awaiting an ERCP. An echocardiogram showed a normally functioning mechanical valve in aortic position. On exam, patient is comfortable. Heart rate is 90 beats per minute. Blood pressure is 91/60. Respiratory rate 18. Chest exam reveals good air entry bilaterally. Heart exam reveals first and second heart sounds. Mechanical valve sound is heard clearly. Abdomen is soft. Exam of extremities did not reveal any edema. Peripheral pulses are felt. Labs show that the white cell count is 16.9. INR is 2. Potassium is 3.9, creatinine is 0.9. ASSESSMENT: 1. Ascending cholangitis. 2. Status post aortic valve replacement. 3. History of congenital heart disease, status post surgery. PLAN: The patient can proceed with the ERCP. Continue the antibiotics. We will try and obtain her records from [place]. JONELLE / GI: [id number] /
[2020-02-24] MEDS: ONDANSETRON 4 MG/2 ML VIAL IVP PRN (13:26)
--- NOTE | 2020-02-24 13:40 | P.PN ---
Subjective Progress Note Date: 02/24/20 Principal diagnosis: abdominal pain Patient is a 69-year-old female with history of congenital heart disease status post mechanical aortic valve replacement 2 on Coumadin therapy, hypothyroidism, and menopausal symptoms continued on estrogen cream presented to the emergency department with complaints of abdominal pain. Patient is visiting here from [place]. In the emergency department she underwent an extensive evaluation. On arrival she was found to be tachycardic with a pulse of 117 and hypotensive with a blood pressure of 97/63. Laboratory analysis showed a lactic acid of 5.5, INR 6.3, white blood cell count 22.4, bilirubin 7.2, AST 432, ALT 530, alk Phosphatase 369, amylase 5656, and lipase of greater than 20,000. Gallbladder ultrasound showed mild hepatic duct dilatation with hydrophilic gallbladder and gallbladder wall thickening with small gallstones or dilated common bile duct. CT abdomen and pelvis showed cholecystitis with uterine mass reflecting underlying leiomyomatous changes. She was subsequently diagnosed with ascending cholangitis with sepsis. She was started on IV fluids and Zosyn. Cardiology was contacted for need for INR reversal as patient has a mechanical aortic valve, GI was contacted and plans for ERCP, surgery was contacted, and critical care was contacted. Arrangements were made for admission to the ICU. She was given vitamin K and FFP. Overnight the patient became both extensive necessitating levophed drip. Her INR had corrected to 2, upper GI 101.5 or less she was given 3 units of FFP. On the morning of 02/23 shows to be thrombocytopenic, white blood cell count had improved, INR was 2, lipase 6079, b ilirubin 7.8, AST 528, ALT 568. She had a repeat CT of the abdomen and pelvis obtained which again demonstrated signs of an enlarged gallbladder consistent with cholecystitis. There is concern by ileus and she was seen by surgery and NG tube was placed. Patient seen and examined at bedside. She complains of some nausea and abdominal pain. She denies any shortness of breath or chest pain. No diarrhea. Objective - Vital Signs Vital signs: Vital Signs Temp 97.7 F 02/24/20 13:16 Pulse 85 02/24/20 13:16 Resp 16 02/24/20 13:16 BP 109/57 02/24/20 13:16 Pulse Ox 94 L 02/24/20 13:16 Intake & Output 02/23/20 02/24/20 02/24/20 18:59 06:59 18:59 Intake Total 0 2472 3128 Output Total 771 655 Balance 0 1701 5573 Weight 86.183 kg 94.1 kg 94.1 kg Intake: IV 2225 2525 Lactated Ringers 2,000 ml 1500 @ 999 mls/hr IV .Q2H1M [facility] Rx#:[id number] Magnesium Sulfate-D5w Pmx 100 200 1 gm In Dextrose/Water 1 100ml.bag @ 100 mls/hr IVPB Q1H [facility] Rx#: [id number] Piperacillin-Tazobactam 3 200 100 .375 gm In Sodium Chloride 0.9% 100 ml @ 25 mls/hr IVPB Q8HR [facility] Rx# :[id number] Potassium Chloride 10 meq 300 100 In Water For Injection 1 100ml.bag @ 100 mls/hr IVPB Q1HR [facility] Rx#: [id number] Sodium Chloride 0.9% 1, 625 625 000 ml @ 125 mls/hr IV . Q8H [facility] Rx#:[id number] Sodium Chloride 0.9% 1, 1000 000 ml @ 999 mls/hr IV . Q1H1M [facility] Rx#:[id number] Blood Product 0 247 603 Ffp 24 Cpd Unit 298 [id number] Ffp 24 Cpd Unit 305 [id number] Ffp 24 Cpd Unit 0 247 [id number] Output: Urine 771 655 Other: Voiding Method Indwelling Catheter Indwelling Catheter - Exam General: Ill appearing, mild distress, appears at stated age Derm: warm, dry Head: atraumatic, normocephalic, symmetric Eyes: EOMI, no lid lag, anicteric sclera Mouth: no lip lesion, mucus membranes moist Cardiovascular: S1-S2 regular with mechanical click midsystolic, positive posterior tibial pulse bilateral, Lungs: Decreased breath sounds bilateral, no rhonchi, no rales , no accessory muscle use Abdominal: soft, tender to palpation right and left upper quadrant, no guarding, no appreciable organomegaly Ext: no gross muscle atrophy, no edema, no contractures Neuro: CN II-XI grossly intact, no focal neuro deficits Psych: Lethargic but awakens to voice, oriented, appropriate affect - Labs CBC & Chem 7: 02/24/20 04:30 02/24/20 04:30 Labs: Abnormal Lab Results - Last 24 Hours (Table) 02/23/20 02/23/20 02/23/20 Range/Units 14:14 14:15 14:15 WBC 22.4 H (3.8-10.6) k/uL RBC 5.46 H (3.80-5.40) m/uL MCV 78.3 L (80.0-100.0) fL MCH (25.0-35.0) pg Plt Count (150-450) k/uL Neutrophils # (Manual) 21.20 H (1.3-7.7) k/uL Lymphocytes # (Manual) 0.45 L (1.0-4.8) k/uL Metamyelocytes # (Man) (0) k/uL PT (9.0-12.0) sec INR (<1.2) APTT (22.0-30.0) sec Sodium 130 L (137-145) mmol/L Potassium 3.0 L (3.5-5.1) mmol/L Chloride 95 L (98-107) mmol/L Carbon Dioxide 19 L (22-30) mmol/L BUN 18 H (7-17) mg/dL Creatinine 1.14 H (0.52-1.04) mg/dL Glucose 133 H (74-99) mg/dL POC Glucose (mg/dL) (75-99) mg/dL Plasma Lactic Acid David (0.7-2.0) mmol/L Calcium (8.4-10.2) mg/dL Phosphorus (2.5-4.5) mg/dL Magnesium (1.6-2.3) mg/dL Total Bilirubin 7.2 H (0.2-1.3) mg/dL AST 432 H (14-36) U/L ALT 530 H (4-34) U/L Alkaline Phosphatase 396 H (38-126) U/L Total Protein (6.3-8.2) g/dL Albumin (3.5-5.0) g/dL Amylase 5656 H* (30-110) U/L Lipase >57542 H (23-300) U/L Urine Appearance Cloudy H (Clear) Ur Leukocyte Esterase Small H (Negative) Urine WBC 9 H (0-5) /hpf Ur Squamous Epith Cells 13 H (0-4) /hpf Amorphous Sediment Occasional H (None) /hpf Urine Bacteria (None) /hpf Urine Mucus Rare H (None) /hpf 02/23/20 02/23/20 02/23/20 Range/Units 14:15 14:15 17:10 WBC (3.8-10.6) k/uL RBC (3.80-5.40) m/uL MCV (80.0-100.0) fL MCH (25.0-35.0) pg Plt Count (150-450) k/uL Neutrophils # (Manual) (1.3-7.7) k/uL Lymphocytes # (Manual) (1.0-4.8) k/uL Metamyelocytes # (Man) (0) k/uL PT 63.5 H (9.0-12.0) sec INR 6.3 H* (<1.2) APTT 40.8 H (22.0-30.0) sec Sodium (137-145) mmol/L Potassium (3.5-5.1) mmol/L Chloride (98-107) mmol/L Carbon Dioxide (22-30) mmol/L BUN (7-17) mg/dL Creatinine (0.52-1.04) mg/dL Glucose (74-99) mg/dL POC Glucose (mg/dL) (75-99) mg/dL Plasma Lactic Acid David 5.5 H* 5.3 H* (0.7-2.0) mmol/L Calcium (8.4-10.2) mg/dL Phosphorus (2.5-4.5) mg/dL Magnesium (1.6-2.3) mg/dL Total Bilirubin (0.2-1.3) mg/dL AST (14-36) U/L ALT (4-34) U/L Alkaline Phosphatase (38-126) U/L Total Protein (6.3-8.2) g/dL Albumin (3.5-5.0) g/dL Amylase (30-110) U/L Lipase (23-300) U/L Urine Appearance (Clear) Ur Leukocyte Esterase (Negative) Urine WBC (0-5) /hpf Ur Squamous Epith Cells (0-4) /hpf Amorphous Sediment (None) /hpf Urine Bacteria (None) /hpf Urine Mucus (None) /hpf 02/23/20 02/23/20 02/23/20 Range/Units 18:05 18:41 20:04 WBC (3.8-10.6) k/uL RBC (3.80-5.40) m/uL MCV (80.0-100.0) fL MCH (25.0-35.0) pg Plt Count (150-450) k/uL Neutrophils # (Manual) (1.3-7.7) k/uL Lymphocytes # (Manual) (1.0-4.8) k/uL Metamyelocytes # (Man) (0) k/uL PT (9.0-12.0) sec INR (<1.2) APTT (22.0-30.0) sec Sodium (137-145) mmol/L Potassium (3.5-5.1) mmol/L Chloride (98-107) mmol/L Carbon Dioxide (22-30) mmol/L BUN (7-17) mg/dL Creatinine (0.52-1.04) mg/dL Glucose (74-99) mg/dL POC Glucose (mg/dL) 117 H (75-99) mg/dL Plasma Lactic Acid David 4.4 H* (0.7-2.0) mmol/L Calcium (8.4-10.2) mg/dL Phosphorus (2.5-4.5) mg/dL Magnesium (1.6-2.3) mg/dL Total Bilirubin (0.2-1.3) mg/dL AST (14-36) U/L ALT (4-34) U/L Alkaline Phosphatase (38-126) U/L Total Protein (6.3-8.2) g/dL Albumin (3.5-5.0) g/dL Amylase (30-110) U/L Lipase (23-300) U/L Urine Appearance Cloudy H (Clear) Ur Leukocyte Esterase Small H (Negative) Urine WBC 30 H (0-5) /hpf Ur Squamous Epith Cells (0-4) /hpf Amorphous Sediment Rare H (None) /hpf Urine Bacteria Rare H (None) /hpf Urine Mucus Rare H (None) /hpf 02/23/20 02/23/20 02/24/20 Range/Units 23:09 23:09 01:49 WBC (3.8-10.6) k/uL RBC (3.80-5.40) m/uL MCV (80.0-100.0) fL MCH (25.0-35.0) pg Plt Count (150-450) k/uL Neutrophils # (Manual) (1.3-7.7) k/uL Lymphocytes # (Manual) (1.0-4.8) k/uL Metamyelocytes # (Man) (0) k/uL PT 24.6 H (9.0-12.0) sec INR 2.5 H (<1.2) APTT (22.0-30.0) sec Sodium (137-145) mmol/L Potassium (3.5-5.1) mmol/L Chloride (98-107) mmol/L Carbon Dioxide (22-30) mmol/L BUN (7-17) mg/dL Creatinine (0.52-1.04) mg/dL Glucose (74-99) mg/dL POC Glucose (mg/dL) (75-99) mg/dL Plasma Lactic Acid David 3.0 H* 2.6 H* (0.7-2.0) mmol/L Calcium (8.4-10.2) mg/dL Phosphorus (2.5-4.5) mg/dL Magnesium (1.6-2.3) mg/dL Total Bilirubin (0.2-1.3) mg/dL AST (14-36) U/L ALT (4-34) U/L Alkaline Phosphatase (38-126) U/L Total Protein (6.3-8.2) g/dL Albumin (3.5-5.0) g/dL Amylase (30-110) U/L Lipase (23-300) U/L Urine Appearance (Clear) Ur Leukocyte Esterase (Negative) Urine WBC (0-5) /hpf Ur Squamous Epith Cells (0-4) /hpf Amorphous Sediment (None) /hpf Urine Bacteria (None) /hpf Urine Mucus (None) /hpf 02/24/20 02/24/20 02/24/20 Range/Units 04:30 04:30 04:30 WBC 16.9 H (3.8-10.6) k/uL RBC (3.80-5.40) m/uL MCV 79.8 L (80.0-100.0) fL MCH 24.9 L (25.0-35.0) pg Plt Count 99 L (150-450) k/uL Neutrophils # (Manual) 15.30 H (1.3-7.7) k/uL Lymphocytes # (Manual) 0.68 L (1.0-4.8) k/uL Metamyelocytes # (Man) 0.68 H (0) k/uL PT 19.1 H (9.0-12.0) sec INR 2.0 H (<1.2) APTT (22.0-30.0) sec Sodium 131 L (137-145) mmol/L Potassium (3.5-5.1) mmol/L Chloride (98-107) mmol/L Carbon Dioxide 16 L (22-30) mmol/L BUN 24 H (7-17) mg/dL Creatinine (0.52-1.04) mg/dL Glucose 116 H (74-99) mg/dL POC Glucose (mg/dL) (75-99) mg/dL Plasma Lactic Acid David (0.7-2.0) mmol/L Calcium 7.6 L (8.4-10.2) mg/dL Phosphorus 4.8 H (2.5-4.5) mg/dL Magnesium 1.4 L (1.6-2.3) mg/dL Total Bilirubin 7.8 H (0.2-1.3) mg/dL AST 528 H (14-36) U/L ALT 568 H (4-34) U/L Alkaline Phosphatase 260 H (38-126) U/L Total Protein 6.2 L (6.3-8.2) g/dL Albumin 3.3 L (3.5-5.0) g/dL Amylase (30-110) U/L Lipase (23-300) U/L Urine Appearance (Clear) Ur Leukocyte Esterase (Negative) Urine WBC (0-5) /hpf Ur Squamous Epith Cells (0-4) /hpf Amorphous Sediment (None) /hpf Urine Bacteria (None) /hpf Urine Mucus (None) /hpf 02/24/20 02/24/20 02/24/20 Range/Units 06:04 11:37 11:55 WBC (3.8-10.6) k/uL RBC (3.80-5.40) m/uL MCV (80.0-100.0) fL MCH (25.0-35.0) pg Plt Count (150-450) k/uL Neutrophils # (Manual) (1.3-7.7) k/uL Lymphocytes # (Manual) (1.0-4.8) k/uL Metamyelocytes # (Man) (0) k/uL PT 14.7 H (9.0-12.0) sec INR 1.5 H (<1.2) APTT (22.0-30.0) sec Sodium (137-145) mmol/L Potassium (3.5-5.1) mmol/L Chloride (98-107) mmol/L Carbon Dioxide (22-30) mmol/L BUN (7-17) mg/dL Creatinine (0.52-1.04) mg/dL Glucose (74-99) mg/dL POC Glucose (mg/dL) 113 H (75-99) mg/dL Plasma Lactic Acid David (0.7-2.0) mmol/L Calcium (8.4-10.2) mg/dL Phosphorus (2.5-4.5) mg/dL Magnesium (1.6-2.3) mg/dL Total Bilirubin (0.2-1.3) mg/dL AST (14-36) U/L ALT (4-34) U/L Alkaline Phosphatase (38-126) U/L Total Protein (6.3-8.2) g/dL Albumin (3.5-5.0) g/dL Amylase 2143 H* (30-110) U/L Lipase 6079 H (23-300) U/L Urine Appearance (Clear) Ur Leukocyte Esterase (Negative) Urine WBC (0-5) /hpf Ur Squamous Epith Cells (0-4) /hpf Amorphous Sediment (None) /hpf Urine Bacteria (None) /hpf Urine Mucus (None) /hpf Microbiology - Last 24 Hours (Table) 02/23/20 16:08 Blood Culture Gram Stain - Preliminary Blood Blood Culture - Preliminary Klebsiella pneumoniae 02/23/20 16:08 Blood Culture - Final Blood 02/23/20 18:05 Urine Culture - Preliminary Urine,Voided Assessment and Plan Assessment: Acute Cholecystitis with septic shock, gallstone pancreatitis and klebsiella b acteremia - GI consult: ERCP today - general surgery recs appreciated -Zosyn -IV fluids -Nothing by mouth, Ice chips to keep mouth moist -Follow blood pressures closely Acute liver failure likely secondary to obstruction due to gallstones -GI recommendations -Liver ultrasound does show mildly heterogeneous liver -Follow LFTs closely -If does not improve after ERCP will check hepatitis profiles Coumadin coagulopathy with supratherapeutic INR, Mechanical aortic valve -Vitamin K and FFP given secondary to surgical procedure in a.m. -INR in AM -Discussed with cardiology who is okay with reversible, will need heparin drip after surgical procedure. Aortic valve replacement secondary to congenital heart disease -Cardiology recommendations appreciated -Echo with normally functioning mechanical aortic valve -Reverse Coumadin -Heparin drip when able after surgical procedure Hyponatremia -Suspect secondary to dehydration -IV fluids -Repeat in a.m. Hypothyroidism -Thyroid medications on hold Hypomagnesemia - replace and recheck in AM Thrombocytopenia - Follow CBC - reactive Hypokalemia, resolved Metabolic acidosis secondary to lactic acidosis, resolved Acute kidney injury versus chronic kidney disease, resolved Lactic acidosis secondary to sepsis and liver dysfunction, resolved CODE STATUS: Full DVT prophylaxis: Supratherapeutic INR Discussed with: Patient, nursing, brother, Dr. Chisholm Anticipated discharge date: 4-[address]: Home A total of 45 minutes was spent on the care of this complex patient more than 50% of the time was spent in counseling and care coordination.
[2020-02-24] MEDS ORDERED: PROPOFOL 10 MG/ML 20 ML VIAL IV ONE (13:43)
[2020-02-24] MEDS ORDERED: MIDAZOLAM 2 MG/2 ML VIAL ONE (13:43)
[2020-02-24] MEDS ORDERED: PHENYLEPHRINE-0.9% NACL SYG 1 MG/10 ML SYRINGE ONE (13:43)
[2020-02-24] MEDS ORDERED: LIDOCAINE 1% INJ 10MG/ML (20 ML MDV) ONE (13:43)
[2020-02-24] MEDS ORDERED: SUCCINYLCHOLINE CHLORIDE 100 MG/5 ML SYR IV ONE (13:43)
[2020-02-24] MEDS ORDERED: ROCURONIUM BROMIDE 10 MG/ML 5 ML VIAL IV ONE (13:43)
[2020-02-24] MEDS ORDERED: IV FLUID CONTINUATION 1,000 ML IV ONE (13:57)
[2020-02-24] MEDS ORDERED: IOPAMIDOL-300 50ML BTL MISCELLANE ONE (14:20)
--- NOTE | 2020-02-24 14:46 | P.PCN ---
Date of Procedure: 02/24/20 Procedure(s) Performed: Brief history: Patient is a 69 year-old pleasant lady scheduled for an ERCP as part of evaluation of abdominal pain and elevated serum transaminases, jaundice and ascending cholangitis. She was noted have elevated amylase and lipase consistent with acute pancreatitis. She was also noted to have gram-negative bacteremia and presently in the intensive care unit with IV antibiotics. He remains on pressors. CT of abdomen showed multiple gallstones and slightly dilated CBD. She was on Coumadin for history of mechanical valve replacement which is on hold and the coagulum was there was reversed with vitamin K and fresh frozen plasma. Procedure performed: ERCP with CBD stent placement Preoperative diagnoses: Acute gallstone pancreatitis with jaundice/elevated LFTs/gram-negative bacteremia and ascending cholangitis General. anesthesia Procedure: After informed consent was obtained from the patient and after the risks benefits and complications including bleeding perforation and pancreatitis explained in detail the patient was brought into the endoscopy unit. The patie nt was placed in prone position and IV conscious sedation was administered by anesthesia under continuous monitoring. The Olympus side-viewing duodenoscope was then inserted into the mouth and esophagus intubated without any difficulty. The scope was gradually advanced into the stomach and duodenum. The major papilla was identified without any difficulty initially cannulation resulted in opacification of the common bile duct appeared dilated measuring 1.5 cm in diameter. There was a 5-6 mm faint filling defect noted in the distal common bile duct. Because of acute pancreatic titers and the fact that she is on Coumadin with elevated INR I decided not to do a sphincterotomy at this time. Instructed a 7-Amharic 5 cm pigtail stent was placed into the proximal CBD with good drainage of the bile. The pancreatic duct not cannulated during the entire procedure. The patient tolerated the procedure well. Impression: 1. Dilated common bile duct with a 5 mm filling defect in the distal CBD status post 7-Amharic 5 cm CBD stent placement with good drainage of bile . 2. CBD stone, was not extracted because of underling coagulopathy and acute severe pancreatitis Recommendations: The findings of this examination were discussed with the patient, Monitor LFTs closely. Continue broad-spectrum antibiotics. Start on IV heparin for anticoagulation because of prosthetic heart valve. Once the pancreatitis resolves we will plan on a repeat ERCP with CBD stone extraction..
--- NOTE | 2020-02-24 15:05 | P.CNPUL ---
History of Present Illness Consult date: 02/23/20 History of present illness: 69-year-old female patient who has been visiting from [place]. The patient is known to have congenital heart disease and she has undergone aortic valve replacement and she has been maintained on lifelong anticoagulation with warfarin. She also has hypothyroidism. No history of alcoholism. She presented to the ED because of 5 day workup abdominal pain and nausea and emesis. She was quite tachycardic and hypotensive at time of admission. Her lactic acid level was at 5.5 with a white cell count count of 22.4 consistent with sepsis. She had abnormal LFTs with bilirubin of 7.2, AST of 432, ALT of 5:30, alkaline phosphatase of 369, amylase and lipase were significantly elevated lipase level of more than 20,000. Ultrasound the gallbladder showed mild hepatic duct dilatation along with hydropic gallbladder along with gallbladder wall thickening and small gallstones and dilated common bile duct. CAT scan of the abdomen also showed cholecystitis with a, mild atrophy dilated measuring around 1.5 cm. There was no obstructive calculus being seen. The gallbladder was distended and it was mildly thickened with pericholecystic thick fluid consistent with cholecystitis. The patient was also toxic on INR while being on Coumadin with an INR of 6.3. The patient was given vitamin K and fresh frozen plasma and repeat PT/INR still pending for now. The patient was started on IV fluids. Given 2 L of IV fluids and start an IV Zosyn following that the patient was transferred to the intensive care units. The patient has a general surgical and GI consultation for possible ERCP within next 24 hours. He has been kept nothing by mouth. Urine output is diminished in the urine color is dark. The patient spike of temperature of 101.0 at home currently afebrile. No significant shortness of breath. No chest pain.EKG showing sinus tachycardia with some occasional premature ventricular complexes. No significant ST segment elevation or depression. Questionable T-wave abnormalities over the anterior leads. The first set of cardiac enzyme is negative. Lactic acid level is down to 4.4 and it's improving. UA has been negative for blood and there are 30 RBCs per high-power field. Review of Systems Constitutional: Reports fatigue, Reports fever Eyes: denies as per HPI, denies blurred vision, denies bulging eye, denies decreased vision, denies diplopia, denies discharge, denies dry eye, denies irritation, denies itching, denies pain, denies photophobia, denies loss of peripheral vision, denies loss of vision, denies tunnel vision/blind spots Ears: deny: decreased hearing, ear discharge, earache, tinnitus Ears, nose, mouth and throat: Reports as per HPI Breasts: absent: as per HPI, change in shape, gynecomastia, masses, nipple discharge, pain, skin changes, swelling Cardiovascular: Reports as per HPI Respiratory: Reports as per HPI Gastrointestinal: Reports abdominal pain Menstruation: Reports amenorrhea Musculoskeletal: Reports as per HPI Musculoskeletal: absent: ankle pain, ankle stiffness, ankle swelling Integumentary: Reports as per HPI Neurological: Reports as per HPI Psychiatric: Reports as per HPI Endocrine: Reports as per HPI Hematologic/Lymphatic: Reports as per HPI Allergic/Immunologic: Reports as per HPI Past Medical History Past Medical History: Hyperlipidemia Additional Past Medical History / Comment(s): congenital aortic stenosis post AVR (mechanical valve and the patient is on chcf anticoagulation, hypothyroidism History of Any Multi-Drug Resistant Organisms: None Reported Past Surgical History: Cardiac Valve Replacement, Coronary Bypass/CABG, Hernia Repair, Hysterectomy, Tonsillectomy Additional Past Surgical History / Comment(s): umbilica herina reparin, Mechanical aortic valve replacement X 2 and congential heart disease surgery, left fallopian tube removal Past Anesthesia/Blood Transfusion Reactions: No Reported Reaction Past Psychological History: No Psychological Hx Reported Smoking Status: Never smoker Past Alcohol Use History: None Reported Past Drug Use History: None Reported - Past Family History Father Family Medical History: Cancer Additional Family Medical History / Comment(s): bladder cancer, tobacco abuse. Mother Family Medical History: Hypertension Brother(s) Additional Family Medical History / Comment(s): brother of AIDS, seocnd brother with CLL. Medications and Allergies Home Medications Medication Instructions Recorded Confirmed Type Biest 1 (50/50)Mg Cream 1 applic TOPICAL HS 02/23/20 02/23/20 History Thyroid,Pork [[place] Thyroid] 90 mg PO DAILY 02/23/20 02/23/20 History Warfarin [Coumadin] 2.5 mg PO Q48H 02/23/20 02/23/20 History Warfarin [Coumadin] 5 mg PO Q48H 02/23/20 02/23/20 History Allergies Allergy/AdvReac Type Severity Reaction Status Date / Time No Known Allergies Allergy Verified 02/23/20 17:00 Physical Exam Vitals: Vital Signs Temp Pulse Pulse Resp BP Pulse Ox 02/23/20 22:00 113 H 36 H 93/59 91 L 02/23/20 21:30 115 H 28 H 93 L 02/23/20 21:00 118 H 27 H 95/55 91 L 02/23/20 20:35 99.4 F 112 H 26 H 91/62 91 L 02/23/20 20:30 114 H 28 H 91/62 92 L 02/23/20 20:00 99.4 F 114 H 113 H 35 H 87/51 93 L 02/23/20 19:30 112 H 33 H 91/60 92 L 02/23/20 19:18 98.4 F 120 H 27 H 79/38 91 L 02/23/20 19:03 98.6 F 112 H 35 H 74/54 95 02/23/20 18:33 98.4 F 115 H 32 H 113/70 93 L 02/23/20 18:30 91/48 02/23/20 18:23 99.0 F 115 H 21 91/48 96 02/23/20 18:19 115 H 18 91/48 96 02/23/20 14:37 99.0 F 02/23/20 13:43 97.5 F L 117 H 18 97/63 93 L Intake and Output 02/23/20 02/23/20 02/23/20 06:59 14:59 22:59 Intake Total 822 Output Total 184 Balance 638 Intake: IV 575 Piperacillin-Tazobactam 3 100 .375 gm In Sodium Chloride 0.9% 100 ml @ 25 mls/hr IVPB Q8HR [facility] Rx# :[id number] Potassium Chloride 10 meq 100 In Water For Injection 1 100ml.bag @ 100 mls/hr IVPB Q1HR [facility] Rx#: [id number] Sodium Chloride 0.9% 1, 375 000 ml @ 125 mls/hr IV . Q8H [facility] Rx#:[id number] Blood Product 247 Ffp 24 Cpd Unit 247 [id number] Output: Urine 184 Other: Voiding Method Indwelling Catheter Weight 86.183 kg 92.8 kg General: Ill-appearing, moderate distress secondary to pain, appears at stated age Derm: no unusual rashes/lesions no unusual ecchymoses, warm, dry Head: atraumatic, normocephalic, symmetric Eyes: EOMI, no lid lag, anicteric sclera, pupils equal round reactive to light ENT: Nose and ears atraumatic, no thrush, no pharyngeal erythema Neck: No thyromegaly, no cervical lymphadenopathy, trachea midline, supple Mouth: no lip lesion, mucus membranes dry Cardiovascular: S1S2 tachycardic with grade 3 systolic ejection murmur with mid systolic click, positive posterior tibial pulse bilateral, no edema, capillary refill less than 2 seconds Lungs: Decreased breath sounds bilaterally, no rhonchi, no rales , no accessory muscle use Abdominal: soft, tender to palpation right upper quadrant, no guarding, no appreciable organomegaly, hypoactive bowel sounds Ext: no gross muscle atrophy, muscle strength 5 out of 5 in all 4 extremities grossly, no contractures, Neuro: CN II-XI grossly intact, light touch intact all 4 extremities, finger to nose within normal limits, Psych: Alert, oriented, appears lethargic with difficulty concentrating Results - Laboratory Findings CBC and BMP: 02/24/20 04:30 02/24/20 04:30 PT/INR, D-dimer PT 63.5 sec (9.0-12.0) H 02/23/20 14:15 INR 6.3 (<1.2) H* 02/23/20 14:15 Abnormal lab findings: Abnormal Labs 02/23/20 02/23/20 02/23/20 14:14 14:15 14:15 WBC 22.4 H RBC 5.46 H MCV 78.3 L Neutrophils # (Manual) 21.20 H Lymphocytes # (Manual) 0.45 L PT INR APTT Sodium 130 L Potassium 3.0 L Chloride 95 L Carbon Dioxide 19 L BUN 18 H Creatinine 1.14 H Glucose 133 H POC Glucose (mg/dL) Plasma Lactic Acid David Total Bilirubin 7.2 H AST 432 H ALT 530 H Alkaline Phosphatase 396 H Amylase 5656 H* Lipase >50846 H Urine Appearance Cloudy H Ur Leukocyte Esterase Small H Urine WBC 9 H Ur Squamous Epith Cells 13 H Amorphous Sediment Occasional H Urine Bacteria Urine Mucus Rare H 02/23/20 02/23/20 02/23/20 14:15 14:15 17:10 WBC RBC MCV Neutrophils # (Manual) Lymphocytes # (Manual) PT 63.5 H INR 6.3 H* APTT 40.8 H Sodium Potassium Chloride Carbon Dioxide BUN Creatinine Glucose POC Glucose (mg/dL) Plasma Lactic Acid David 5.5 H* 5.3 H* Total Bilirubin AST ALT Alkaline Phosphatase Amylase Lipase Urine Appearance Ur Leukocyte Esterase Urine WBC Ur Squamous Epith Cells Amorphous Sediment Urine Bacteria Urine Mucus 02/23/20 02/23/20 02/23/20 18:05 18:41 20:04 WBC RBC MCV Neutrophils # (Manual) Lymphocytes # (Manual) PT INR APTT Sodium Potassium Chloride Carbon Dioxide BUN Creatinine Glucose POC Glucose (mg/dL) 117 H Plasma Lactic Acid David 4.4 H* Total Bilirubin AST ALT Alkaline Phosphatase Amylase Lipase Urine Appearance Cloudy H Ur Leukocyte Esterase Small H Urine WBC 30 H Ur Squamous Epith Cells Amorphous Sediment Rare H Urine Bacteria Rare H Urine Mucus Rare H Assessment and Plan Plan: 1 Acute gallstone pancreatitis 2 Acute cholecystitis, with possible cholangitis 3 Acute abdominal pain secondary to above 4 Sepsis with secondary hypotension, likely secondary to above, consider gram- negative sepsis as the patient's blood cultures showing preliminary gram- negative bacteria in the blood 5 Leukocytosis secondary to above 6 Lactic acidosis secondary to above 7 Coumadin toxicity 8 Congenital heart disease, post AVR (mechanical valve) 9 Hypothyroidism 10 abdominal distention secondary to above 11 acute hypoxic respiratory failure secondary to above and a chest x-ray showing some atelectatic changes and small effusions bilaterally Plan IV fluids and the patient has received a total of 2 liter in the ED. Will give the third liter and will use pressors in the form of Levofed if needed Blood culture IV Zosyn as a broad spectrum ABX coverage FU Lactic acid level FU urine output Obtain a 2D echo fo the heart to assess the valve function and the LVEF Reverese coagulopathy and monitor the PT/INR. Meanwhile, the patient can be bridged by IV heparin once the INR is <2 GI consult for possible ERCP, the anticoagulation should be held pending ERCP General surgical consultation Monitor LFT, amylase, Lipase Keep NPO
--- NOTE | 2020-02-24 15:13 | P.PN ---
Subjective Progress Note Date: 02/24/20 On today's evaluation of 02/24/2020, the patient is being seen in intensive care unit. This morning, the patient is still having abdominal pain and abdominal distention and she is a bit more short of breath compared to yesterday. She is currently on 5 L about 2 by nasal cannula with a pulse ox ranging in the low 90s. The patient was noted to have gram-negative bacteria in the blood and this will ultimately turned out to be Klebsiella pneumoniae. The patient is covered with broad-spectrum antibiotics and the patient is currently on IV Zosyn. As mentioned earlier, the patient will have an ERCP today. The patient is still jaundiced and the bilirubin and the rest of the liver function tests are still elevated. There is some improvement in the amylase and lipase levels compared to yesterday. The patient's INR is down to 2 and the patient will receive fresh frozen plasma as the mixer driver was performed ERCP 1 a day INR level which is lower. The patient is going to have an ERCP done today based on the fact that the common bile duct is dilated. The abdomen is tympanic and there may be a component of ileus also. Otherwise echo results of 16.9. Platelet count is down to 99 and this is essentially a consumptive thrombocytopenia. Objective - Vital Signs Vital signs: Vital Signs Temp 97.7 F 02/24/20 13:16 Pulse 85 02/24/20 13:16 Resp 16 02/24/20 13:16 BP 117/61 02/24/20 14:00 Pulse Ox 94 L 02/24/20 13:16 Intake & Output 02/23/20 02/24/20 02/24/20 18:59 06:59 18:59 Intake Total 0 2472 3128 Output Total 771 655 Balance 0 1701 2473 Weight 86.183 kg 94.1 kg 94.1 kg Intake: IV 2225 2525 Lactated Ringers 2,000 ml 1500 @ 999 mls/hr IV .Q2H1M [facility] Rx#:[id number] Magnesium Sulfate-D5w Pmx 100 200 1 gm In Dextrose/Water 1 100ml.bag @ 100 mls/hr IVPB Q1H [facility] Rx#: [id number] Piperacillin-Tazobactam 3 200 100 .375 gm In Sodium Chloride 0.9% 100 ml @ 25 mls/hr IVPB Q8HR [facility] Rx# :[id number] Potassium Chloride 10 meq 300 100 In Water For Injection 1 100ml.bag @ 100 mls/hr IVPB Q1HR [facility] Rx#: [id number] Sodium Chloride 0.9% 1, 625 625 000 ml @ 125 mls/hr IV . Q8H [facility] Rx#:[id number] Sodium Chloride 0.9% 1, 1000 000 ml @ 999 mls/hr IV . Q1H1M [facility] Rx#:[id number] Blood Product 0 247 603 Ffp 24 Cpd Unit 298 [id number] Ffp 24 Cpd Unit 305 [id number] Ffp 24 Cpd Unit 0 247 [id number] Output: Urine 771 655 Other: Voiding Method Indwelling Catheter Indwelling Catheter - Exam General: Ill-appearing, moderate distress secondary to pain, appears at stated age Derm: no unusual rashes/lesions no unusual ecchymoses, warm, dry Head: atraumatic, normocephalic, symmetric Eyes: EOMI, no lid lag, anicteric sclera, pupils equal round reactive to light ENT: Nose and ears atraumatic, no thrush, no pharyngeal erythema Neck: No thyromegaly, no cervical lymphadenopathy, trachea midline, supple Mouth: no lip lesion, mucus membranes dry Cardiovascular: S1S2 tachycardic with grade 3 systolic ejection murmur with mid systolic click, positive posterior tibial pulse bilateral, no edema, capillary refill less than 2 seconds Lungs: Decreased breath sounds bilaterally, no rhonchi, no rales , no accessory muscle use Abdominal: soft, tender to palpation right upper quadrant, no guarding, no appreciable organomegaly, the bowel sounds are hypoactive and abdomen is slightly distended compared to yesterday and there is tympany consistent with ileus Ext: no gross muscle atrophy, muscle strength 5 out of 5 in all 4 extremities grossly, no contractures, Neuro: CN II-XI grossly intact, light touch intact all 4 extremities, finger to nose within normal limits, Psych: Alert, oriented, appears lethargic and she is following commands and answering questions appropriately. - Labs CBC & Chem 7: 02/24/20 04:30 02/24/20 04:30 Labs: Abnormal Lab Results - Last 24 Hours (Table) 02/23/20 02/23/20 02/23/20 Range/Units 14:15 14:15 14:15 WBC (3.8-10.6) k/uL MCV (80.0-100.0) fL MCH (25.0-35.0) pg Plt Count (150-450) k/uL Neutrophils # (Manual) 21.20 H (1.3-7.7) k/uL Lymphocytes # (Manual) 0.45 L (1.0-4.8) k/uL Metamyelocytes # (Man) (0) k/uL PT 63.5 H (9.0-12.0) sec INR 6.3 H* (<1.2) APTT 40.8 H (22.0-30.0) sec Sodium 130 L (137-145) mmol/L Potassium 3.0 L (3.5-5.1) mmol/L Chloride 95 L (98-107) mmol/L Carbon Dioxide 19 L (22-30) mmol/L BUN 18 H (7-17) mg/dL Creatinine 1.14 H (0.52-1.04) mg/dL Glucose 133 H (74-99) mg/dL POC Glucose (mg/dL) (75-99) mg/dL Plasma Lactic Acid David (0.7-2.0) mmol/L Calcium (8.4-10.2) mg/dL Phosphorus (2.5-4.5) mg/dL Magnesium (1.6-2.3) mg/dL Total Bilirubin 7.2 H (0.2-1.3) mg/dL AST 432 H (14-36) U/L ALT 530 H (4-34) U/L Alkaline Phosphatase 396 H (38-126) U/L Total Protein (6.3-8.2) g/dL Albumin (3.5-5.0) g/dL Amylase 5656 H* (30-110) U/L Lipase >84171 H (23-300) U/L Urine Appearance (Clear) Ur Leukocyte Esterase (Negative) Urine WBC (0-5) /hpf Amorphous Sediment (None) /hpf Urine Bacteria (None) /hpf Urine Mucus (None) /hpf 02/23/20 02/23/20 02/23/20 Range/Units 17:10 18:05 18:41 WBC (3.8-10.6) k/uL MCV (80.0-100.0) fL MCH (25.0-35.0) pg Plt Count (150-450) k/uL Neutrophils # (Manual) (1.3-7.7) k/uL Lymphocytes # (Manual) (1.0-4.8) k/uL Metamyelocytes # (Man) (0) k/uL PT (9.0-12.0) sec INR (<1.2) APTT (22.0-30.0) sec Sodium (137-145) mmol/L Potassium (3.5-5.1) mmol/L Chloride (98-107) mmol/L Carbon Dioxide (22-30) mmol/L BUN (7-17) mg/dL Creatinine (0.52-1.04) mg/dL Glucose (74-99) mg/dL POC Glucose (mg/dL) 117 H (75-99) mg/dL Plasma Lactic Acid David 5.3 H* (0.7-2.0) mmol/L Calcium (8.4-10.2) mg/dL Phosphorus (2.5-4.5) mg/dL Magnesium (1.6-2.3) mg/dL Total Bilirubin (0.2-1.3) mg/dL AST (14-36) U/L ALT (4-34) U/L Alkaline Phosphatase (38-126) U/L Total Protein (6.3-8.2) g/dL Albumin (3.5-5.0) g/dL Amylase (30-110) U/L Lipase (23-300) U/L Urine Appearance Cloudy H (Clear) Ur Leukocyte Esterase Small H (Negative) Urine WBC 30 H (0-5) /hpf Amorphous Sediment Rare H (None) /hpf Urine Bacteria Rare H (None) /hpf Urine Mucus Rare H (None) /hpf 02/23/20 02/23/20 02/23/20 Range/Units 20:04 23:09 23:09 WBC (3.8-10.6) k/uL MCV (80.0-100.0) fL MCH (25.0-35.0) pg Plt Count (150-450) k/uL Neutrophils # (Manual) (1.3-7.7) k/uL Lymphocytes # (Manual) (1.0-4.8) k/uL Metamyelocytes # (Man) (0) k/uL PT 24.6 H (9.0-12.0) sec INR 2.5 H (<1.2) APTT (22.0-30.0) sec Sodium (137-145) mmol/L Potassium (3.5-5.1) mmol/L Chloride (98-107) mmol/L Carbon Dioxide (22-30) mmol/L BUN (7-17) mg/dL Creatinine (0.52-1.04) mg/dL Glucose (74-99) mg/dL POC Glucose (mg/dL) (75-99) mg/dL Plasma Lactic Acid David 4.4 H* 3.0 H* (0.7-2.0) mmol/L Calcium (8.4-10.2) mg/dL Phosphorus (2.5-4.5) mg/dL Magnesium (1.6-2.3) mg/dL Total Bilirubin (0.2-1.3) mg/dL AST (14-36) U/L ALT (4-34) U/L Alkaline Phosphatase (38-126) U/L Total Protein (6.3-8.2) g/dL Albumin (3.5-5.0) g/dL Amylase (30-110) U/L Lipase (23-300) U/L Urine Appearance (Clear) Ur Leukocyte Esterase (Negative) Urine WBC (0-5) /hpf Amorphous Sediment (None) /hpf Urine Bacteria (None) /hpf Urine Mucus (None) /hpf 02/24/20 02/24/20 02/24/20 Range/Units 01:49 04:30 04:30 WBC 16.9 H (3.8-10.6) k/uL MCV 79.8 L (80.0-100.0) fL MCH 24.9 L (25.0-35.0) pg Plt Count 99 L (150-450) k/uL Neutrophils # (Manual) 15.30 H (1.3-7.7) k/uL Lymphocytes # (Manual) 0.68 L (1.0-4.8) k/uL Metamyelocytes # (Man) 0.68 H (0) k/uL PT 19.1 H (9.0-12.0) sec INR 2.0 H (<1.2) APTT (22.0-30.0) sec Sodium (137-145) mmol/L Potassium (3.5-5.1) mmol/L Chloride (98-107) mmol/L Carbon Dioxide (22-30) mmol/L BUN (7-17) mg/dL Creatinine (0.52-1.04) mg/dL Glucose (74-99) mg/dL POC Glucose (mg/dL) (75-99) mg/dL Plasma Lactic Acid David 2.6 H* (0.7-2.0) mmol/L Calcium (8.4-10.2) mg/dL Phosphorus (2.5-4.5) mg/dL Magnesium (1.6-2.3) mg/dL Total Bilirubin (0.2-1.3) mg/dL AST (14-36) U/L ALT (4-34) U/L Alkaline Phosphatase (38-126) U/L Total Protein (6.3-8.2) g/dL Albumin (3.5-5.0) g/dL Amylase (30-110) U/L Lipase (23-300) U/L Urine Appearance (Clear) Ur Leukocyte Esterase (Negative) Urine WBC (0-5) /hpf Amorphous Sediment (None) /hpf Urine Bacteria (None) /hpf Urine Mucus (None) /hpf 02/24/20 02/24/20 02/24/20 Range/Units 04:30 06:04 11:37 WBC (3.8-10.6) k/uL MCV (80.0-100.0) fL MCH (25.0-35.0) pg Plt Count (150-450) k/uL Neutrophils # (Manual) (1.3-7.7) k/uL Lymphocytes # (Manual) (1.0-4.8) k/uL Metamyelocytes # (Man) (0) k/uL PT (9.0-12.0) sec INR (<1.2) APTT (22.0-30.0) sec Sodium 131 L (137-145) mmol/L Potassium (3.5-5.1) mmol/L Chloride (98-107) mmol/L Carbon Dioxide 16 L (22-30) mmol/L BUN 24 H (7-17) mg/dL Creatinine (0.52-1.04) mg/dL Glucose 116 H (74-99) mg/dL POC Glucose (mg/dL) 113 H (75-99) mg/dL Plasma Lactic Acid David (0.7-2.0) mmol/L Calcium 7.6 L (8.4-10.2) mg/dL Phosphorus 4.8 H (2.5-4.5) mg/dL Magnesium 1.4 L (1.6-2.3) mg/dL Total Bilirubin 7.8 H (0.2-1.3) mg/dL AST 528 H (14-36) U/L ALT 568 H (4-34) U/L Alkaline Phosphatase 260 H (38-126) U/L Total Protein 6.2 L (6.3-8.2) g/dL Albumin 3.3 L (3.5-5.0) g/dL Amylase 2143 H* (30-110) U/L Lipase 6079 H (23-300) U/L Urine Appearance (Clear) Ur Leukocyte Esterase (Negative) Urine WBC (0-5) /hpf Amorphous Sediment (None) /hpf Urine Bacteria (None) /hpf Urine Mucus (None) /hpf 02/24/20 Range/Units 11:55 WBC (3.8-10.6) k/uL MCV (80.0-100.0) fL MCH (25.0-35.0) pg Plt Count (150-450) k/uL Neutrophils # (Manual) (1.3-7.7) k/uL Lymphocytes # (Manual) (1.0-4.8) k/uL Metamyelocytes # (Man) (0) k/uL PT 14.7 H (9.0-12.0) sec INR 1.5 H (<1.2) APTT (22.0-30.0) sec Sodium (137-145) mmol/L Potassium (3.5-5.1) mmol/L Chloride (98-107) mmol/L Carbon Dioxide (22-30) mmol/L BUN (7-17) mg/dL Creatinine (0.52-1.04) mg/dL Glucose (74-99) mg/dL POC Glucose (mg/dL) (75-99) mg/dL Plasma Lactic Acid David (0.7-2.0) mmol/L Calcium (8.4-10.2) mg/dL Phosphorus (2.5-4.5) mg/dL Magnesium (1.6-2.3) mg/dL Total Bilirubin (0.2-1.3) mg/dL AST (14-36) U/L ALT (4-34) U/L Alkaline Phosphatase (38-126) U/L Total Protein (6.3-8.2) g/dL Albumin (3.5-5.0) g/dL Amylase (30-110) U/L Lipase (23-300) U/L Urine Appearance (Clear) Ur Leukocyte Esterase (Negative) Urine WBC (0-5) /hpf Amorphous Sediment (None) /hpf Urine Bacteria (None) /hpf Urine Mucus (None) /hpf Microbiology - Last 24 Hours (Table) 02/23/20 16:08 Blood Culture Gram Stain - Preliminary Blood Blood Culture - Preliminary Klebsiella pneumoniae 02/23/20 16:08 Blood Culture - Final Blood 02/23/20 18:05 Urine Culture - Preliminary Urine,Voided Assessment and Plan Plan: 1 Acute gallstone pancreatitis, consider a stone in the CBD as the patient has dilation of the common bile duct. 2 Acute cholecystitis, with possible cholangitis 3 Acute abdominal pain secondary to above with secondary abdominal distention, p ossibly component of ileus 4 Sepsis with secondary hypotension, likely secondary to above, consider gram- negative sepsis as the patient's blood cultures showing preliminary gram- negative bacteria in the blood 5 Leukocytosis secondary to above, improving 6 Lactic acidosis secondary to above, improving 7 Coumadin toxicity 8 Congenital heart disease, post AVR (mechanical valve) 9 Hypothyroidism 10 abdominal distention secondary to above 11 acute hypoxic respiratory failure secondary to above and a chest x-ray showing some atelectatic changes and small effusions bilaterally 12 non-anion gap metabolic acidosis with a serum bicarbonate down to 16 Plan IV fluids at the rate of 125 mL an hour and the patient also required pressors overnight and she is currently on norepinephrine infusion running at 0.05 g per KG per minute. Blood culture is positive for Klebsiella pneumoniae and the patient's son IV Zosyn Echo was noted and the patient has an ejection fraction of 50-55% with a normal bioprosthetic aortic valve Reverese coagulopathy and monitor the PT/INR. Meanwhile, the patient can be bridged by IV heparin once the INR is <2. The patient will be given fresh frozen plasma preoperatively, prior to completing the ERCP ERCP to be done today, the anticoagulation should be held pending ERCP General surgical consultation Monitor LFT, amylase, Lipase Keep NPO
[2020-02-24] MEDS ORDERED: PROPOFOL 100 ML IV ONE (15:18)
[2020-02-24] MEDS ORDERED: IPRATROPIUM-ALBUTEROL 3 ML NEB INHALATION PRN (15:27)
--- NOTE | 2020-02-24 15:45 | FL ---
EXAMINATION TYPE: FL ERCP DATE OF EXAM: 02/24/2020 FLUOROSCOPY Fluoroscopy time not provided. Procedure performed: ERCP. 4 images document the procedure.
--- NOTE | 2020-02-24 15:53 | XR ---
EXAMINATION TYPE: XR chest 1V portable DATE OF EXAM: 02/24/2020 Comparison: 02/24/2020 Clinical History: 69-year-old female Tube placement Findings: ET tube is satisfactory. Median sternotomy wires. Retained epicardial pacer leads. Prosthetic cardiac valve. Heart border line enlarged. Continued small effusions with bibasilar opacities and interstiti al prominence. Impression: 1. Satisfactory ET tube. 2. Continued findings suggesting CHF with mild pulmonary vascular congestion. 3. Continued small effusions with prominent bibasilar atelectasis and/or consolidation.
[2020-02-24 15:56] LABS: ABG Base Excess -6.7 mmol/L; ABG HCO3 22 mmol/L (21-25); ABG Oxygen Saturation 97.8 % (94-97); ABG PCO2 59 mmHg (35-45); ABG PO2 127 mmHg (83-108); ABG TCO2 24 mmol/L (19-24); Allen Test Performed? Yes
[2020-02-24 15:58] LABS: ABG PH 7.17 (7.35-7.45)
[2020-02-24] MEDS: IPRATROPIUM-ALBUTEROL 3 ML NEB INHALATION SCH ×2 (16:00→20:00)
--- NOTE | 2020-02-24 17:05 | P.PCN ---
Date of Procedure: 02/24/20 Preoperative Diagnosis: Sepsis Postoperative Diagnosis: sepsis Procedure(s) Performed: Triple-lumen catheter insertion Anesthesia: local Surgeon: Sampson Chisholm Estimated Blood Loss (ml): 0 Pathology: other Condition: critical Disposition: ICU Operative Findings: Indication: Hemodynamic monitoring/Intravenous access. A time-out was completed verifying correct patient, procedure, site, positioning, and implant(s) or special equipment if applicable. The patient was placed in a dependent position appropriate for central line placement based on the vein to be cannulated. The patient left groin was prepped and draped in sterile fashion. 1% Lidocaine was used to anesthetize the surrounding skin area. A triple lumen 9F Cordis catheter was introduced into the left common femoral vein using Seldinger technique. The catheter was threaded smoothly over the guide wire and appropriate blood return was obtained. Each lumen of the catheter was evacuated of air and flushed with sterile saline. The catheter was then sutured in place to the skin and a sterile dressing applied. Perfusion to the extremity distal to the point of catheter insertion was checked and found to be adequate. The patient tolerated the procedure well and there were no complications.
[2020-02-24] MEDS: HEPARIN SOD,PORK IN 0.45% NACL 25,000 UNIT in 0.45% NACL 1 250ML.BAG IV SCH (17:06)
[2020-02-24] MEDS: PROPOFOL 1,000 MG in EMPTY BAG 1 BAG IV SCH ×2 (17:10→19:31)
--- NOTE | 2020-02-24 17:16 | XR ---
EXAMINATION TYPE: XR chest 1V portable DATE OF EXAM: 02/24/2020 CLINICAL HISTORY: Difficulty breathing progress study. Rule out pneumothorax. TECHNIQUE: Single AP portable upright view of the chest is obtained. COMPARISON: Chest x-ray from earlier today. FINDINGS: Interval advancement of orogastric tube past the diaphragm. Endotracheal tube satisfactory in position. Overlying sternal wires and mediastinal clips along with cardiac valvular rings are all redemonstrated. Stable mild cardiomegaly with central vascular congestion and small bilateral pleura l effusions and associated bibasilar compressive atelectasis. Upper lungs remain clear without pneumo thorax. Osseous structures are intact. Retained epicardial pacer wires less well seen on current stud y. IMPRESSION: Interval successful advancement of orogastric tube. Other findings stable as there are lo w lung volumes and mild cardiomegaly with central vascular congestion and small bilateral pleural eff usions suggesting CHF exacerbation.
[2020-02-24 17:33] LABS: Glucose,Whole Blood 126 mg/dL (75-99)
[2020-02-24] MEDS: CHLORHEXIDINE GLUCONATE 15 ML CUP MUCOUS MEM SCH (20:56)
--- NOTE | 2020-02-24 22:11 | CONS ---
CONSULTATION DATE OF DICTATION: 02/24/2020 REASON FOR CONSULTATION: Severe abdominal pain, elevated LFTs, jaundice; possible ascending cholangitis. HISTORY OF PRESENT ILLNESS: The patient is a 69-year-old pleasant white female with history of mechanical aortic valve replacement, on Coumadin, history of hypothyroidism and hypertension. She came into the emergency room complaining of diffuse abdominal pain. The patient lives in [place] and is visiting her brother in this area. The pain has been progressively getting worse for the last 2 or 3 days' duration, with several episodes of emesis. She came into the emergency room and she was noted to have lactic acidosis and was hypotensive. She was resuscitated with fluids and was admitted to the intensive care unit. She was noted to have elevated white count at 22,400, bilirubin 7.2. ALT and AST in the 500s range. CT of the abdomen did show evidence of multiple gallstones and acute cholecystitis and slight dilation of common bile duct. Because of the clinical suspicion for ascending cholangitis and CBD stones, we are consulted for evaluation. The patient at present is on broad-spectrum antibiotics. She remains in the intensive care unit and is on pressors with Levophed at 5 mcg/hour. She has history of aortic valve replacement and has been on Coumadin for several years. Her INR was 7. She received IV vitamin K and fresh frozen plasma. This morning she still complains of abdominal discomfort and abdominal distention. She had an NG tube placed around 9:30 this morning and there was about 20 mL of bilious fluid that was aspirated. She had a low-grade fever at home. Since being in the hospital, she has remained afebrile. PAST MEDICAL HISTORY: Her past medical history is significant for hypertension, hyperlipidemia, hypothyroidism. PAST SURGICAL HISTORY: Aortic valve replacement, umbilical hernia repair. MEDICATIONS: Medications at home include Coumadin, thyroid medications. ALLERGIES: NONE. SOCIAL HISTORY: No smoking. No alcohol use. FAMILY HISTORY: Father had bladder cancer. Mother had hypertension. REVIEW OF SYSTEMS: CARDIOPULMONARY: No chest pain or shortness of breath. GENITOURINARY: No dysuria or hematuria. MUSCULOSKELETAL: Unremarkable. SKIN: Unremarkable. ENDOCRINE: Unremarkable. PSYCHIATRIC: Unremarkable. NEUROLOGY: Unremarkable. ENT/VISION: Unremarkable. CONSTITUTIONAL: No weight loss. Low-grade fever. No chills. PHYSICAL EXAMINATION: She appears slightly uncomfortable. Vital signs show a blood pressure of 97/63, pulse rate 117, and temperature 99. HEENT examination unremarkable. Conjunctivae pink. Sclerae slightly icteric. Oral cavity no lesions. NECK: No JVD or lymph node enlargement. CHEST: Clear to auscultation. HEART: Regular rate and rhythm. ABDOMEN: Distended. There was diffuse tenderness in the episode and right upper quadrant area with no rebound or rigidity. EXTREMITIES: No pedal edema. SKIN: No rashes. NEUROLOGIC: She is awake, alert and oriented to name and place. LABS: Labs done at the time of admission to the hospital yesterday: WBC was 22.4. Today it is 16.9. Hemoglobin 14.5. INR was 6.3. Today it is 1.5. Total bilirubin 7.6, ALT 432, AST 530, alkaline phosphatase 391, lipase more than 20,000 and amylase 5656. Today lipase is 6079 and amylase is 2143. Blood cultures grew Gram-negative rods. IMPRESSION: 1. This is a lady who presented to the hospital with acute onset of severe epigastric and right upper quadrant abdominal pain with fever, chills and elevated liver function tests and jaundice as well as acute elevation of amylase and lipase, all consistent with acute gallstone pancreatitis with ascending cholangitis. She was started on broad-spectrum antibiotics yesterday. Remains in the intensive care unit. Somewhat hypotensive and on vasopressors. Repeat labs today show slightly worsening bilirubin up to 7.8 with persistent elevation of serum transaminases, but improving lipase to 6000. Most likely we are dealing with CBD stones. Ultrasound and CT scan did show evidence of multiple gallstones. 2. Acute pancreatitis with improving amylase and lipase. 3. Sepsis/lactic acidosis secondary to ascending cholangitis and Gram-negative bacteremia, on broad-spectrum antibiotics. 4. History of aortic valve replacement, on Coumadin with an INR of 6 yesterday. She received vitamin K as well as fresh frozen plasma. INR today is 1.5. RECOMMENDATIONS: 1. Continue with broad-spectrum antibiotics. 2. Continue to hold Coumadin. 3. Agree with 2 units of FFP. 4. Will proceed with an ERCP today. The patient understands risks, benefits and complications of the procedure. In view of elevated INR, will plan on ERCP with a CBD stent placement and, if needed, sphincterotomy will be performed at a later date. Thank you for this consultation. MMODL / IJN: [id number] /
[2020-02-24] MEDS: HEPARIN SODIUM,PORCINE 5,000 UNIT/ML 1 ML VIAL IV PRN (23:28)
[2020-02-24 23:41] LABS: Glucose,Whole Blood 135 mg/dL (75-99)
[2020-02-25] MEDS: IPRATROPIUM-ALBUTEROL 3 ML NEB INHALATION SCH ×6 (00:38→20:14)
[2020-02-25] MEDS: PROPOFOL 1,000 MG in EMPTY BAG 1 BAG IV SCH ×2 (01:22→05:01)
[2020-02-25] MEDS: NOREPINEPHRINE 4 MG in SODIUM CHLORIDE 0.9% 250 ML IV SCH (01:25)
[2020-02-25] MEDS: SODIUM CHLORIDE 0.9% 1,000 ML IV SCH ×2 (01:26→13:54)
[2020-02-25 04:31] LABS: Allen Test Performed? Yes
[2020-02-25 04:40] LABS: ABG Base Excess -4.3 mmol/L; ABG HCO3 21 mmol/L (21-25); ABG Oxygen Saturation 98.3 % (94-97); ABG PCO2 34 mmHg (35-45); ABG PH 7.39 (7.35-7.45); ABG PO2 125 mmHg (83-108); ABG TCO2 22 mmol/L (19-24)
[2020-02-25] MEDS: NOREPINEPHRINE 32 MG in SODIUM CHLORIDE 0.9% 218 ML IV SCH (05:15)
[2020-02-25 06:34] LABS: Basophils % (A) 0 %; Eosinophils # (A) 0.1 k/uL (0-0.7); Eosinophils % (A) 1 %; HCT 35.8 % (34.0-46.0); HGB 11.2 gm/dL (11.4-16.0); Hypochromasia Marked; Lymphocytes % (A) 6 %; MCH 25.3 pg (25.0-35.0); MCHC 31.1 g/dL (31.0-37.0); MCV 81.1 fL (80.0-100.0); Mean Platelet Volume 9.1; Monocytes # (A) 0.3 k/uL (0-1.0); Monocytes % (A) 2 %; Neutrophils # (A) 15.6 k/uL (1.3-7.7); Neutrophils % (A) 91 %; RBC 4.42 m/uL (3.80-5.40); RDW 15.2 % (11.5-15.5); WBC 17.1 k/uL (3.8-10.6)
[2020-02-25 06:35] LABS: Platelet Count 88 k/uL (150-450)
[2020-02-25 06:43] LABS: INR 1.1 (<1.2); Partial Thromboplastin Time 37.4 sec (22.0-30.0); Prothrombin Time 11.5 sec (9.0-12.0)
[2020-02-25] MEDS: HEPARIN SODIUM,PORCINE 5,000 UNIT/ML 1 ML VIAL IV PRN ×2 (07:11→16:41)
[2020-02-25 07:13] LABS: Albumin 2.9 g/dL (3.5-5.0); Amylase 185 U/L (30-110); Glucose 136 mg/dL (74-99); Sodium 139 mmol/L (137-145); Total Protein 5.7 g/dL (6.3-8.2)
[2020-02-25 07:14] LABS: ALT 321 U/L (4-34); AST 139 U/L (14-36); African American GFR (CKD) >90 (>60 ml/min/1.73 sqM); Alkaline Phosphatase 204 U/L (38-126); Blood Urea Nitrogen 19 mg/dL (7-17); Calcium 7.6 mg/dL (8.4-10.2); Carbon Dioxide 21 mmol/L (22-30); Magnesium 2.5 mg/dL (1.6-2.3); Non-African American GFR(CKD) 87 (>60 ml/min/1.73 sqM); Total Bilirubin 2.8 mg/dL (0.2-1.3)
[2020-02-25 07:41] LABS: Glucose,Whole Blood 155 mg/dL (75-99)
--- NOTE | 2020-02-25 07:42 | XR ---
EXAMINATION TYPE: XR chest 1V portable DATE OF EXAM: 02/25/2020 CLINICAL HISTORY: Difficulty breathing progress study. TECHNIQUE: Single AP portable semiupright view of the chest is obtained. COMPARISON: Chest x-rays from one day earlier. FINDINGS: Stable endotracheal and orogastric tubes. Overlying sternal wires and mediastinal clips al jenni with cardiac valvular ring are all redemonstrated. Stable mild cardiomegaly and atherosclerotic thoracic aorta with mild central vascular congestion and small bilateral pleural effusions and associated right greater than left bibasilar compressive atele ctasis. Upper lungs remain clear without pneumothorax. Osseous structures are intact. Underlying emph ysematous changes not excluded. IMPRESSION: Findings favor CHF exacerbation as there is mild cardiomegaly with small bilateral pleur al effusions and suspected mild central vascular congestion. Correlate clinically. There is associate d right greater than left bibasilar acute infiltrate and/or atelectasis noted.
[2020-02-25 08:01] LABS: Anion Gap 9 mmol/L; Chloride 109 mmol/L (98-107)
[2020-02-25] MEDS: PIPERACILLIN-TAZOBACTAM 3.375 GM in SODIUM CHLORIDE 0.9% 100 ML IVPB SCH ×2 (08:38→16:41)
[2020-02-25] MEDS: CHLORHEXIDINE GLUCONATE 15 ML CUP MUCOUS MEM SCH (08:38)
[2020-02-25] MEDS: PANTOPRAZOLE 40 MG/10 ML VIAL IV SCH (08:38)
[2020-02-25] MEDS: HYDROmorphone 1 MG/ML 1 ML SYRINGE IVP PRN ×3 (09:48→16:28)
[2020-02-25 11:31] LABS: Glucose,Whole Blood 144 mg/dL (75-99)
[2020-02-25] MEDS: THYROID, PORK 30 MG TAB PO SCH (13:31)
[2020-02-25] MEDS: HEPARIN SOD,PORK IN 0.45% NACL 25,000 UNIT in 0.45% NACL 1 250ML.BAG IV SCH (13:41)
--- NOTE | 2020-02-25 15:02 | P.PN ---
Subjective Progress Note Date: 02/25/20 On today's evaluation of 02/25/2020 the patient is post ERCP and the procedure was successful and there is been improvement in the patient's amylase and lipase and LFTs and the bilirubin level. The abdomen is less tense and tender and distended compared to yesterday. Bowel sounds remain hypoactive. The patient remains on IV Zosyn regarding a klebsiella pneumonia sepsis as the area was cultured in the blood. This morning, the patient is afebrile. The patient has hemodynamically improved on normal saline at the rate of 75 mL's an hour and the patient is currently on Lasix pressors which is running in the order of 0.1 g per KG per minute. Nevertheless this was being weaned off. NG tube has produced around 250 mL over the past 12 hours. The patient meanwhile is on a mechanical ventilator on assist control mode with tidal volume of 450, FiO2 of 40% with a PEEP of 5 and a rate of 16. The patient was given a sedation holiday and she woke up nicely and she was very much appropriate. At that point when he parameters were checked and the patient is rapid shallow breathing index of 45. She was given a CPAP trial with upper support of 5 and PEEP of 5 and after tolerating this for around 30 minutes the patient was extubated to nasal cannula. She remains on IV heparin regarding a mechanical aortic valve. No other significant events otherwise for now. The patient is awake and alert and she is following commands. Her white cell count is down to 17.1.her creatinine is at 0.7. He'll bilirubin is down to 2.8. AST is down to 139, ALT is down to 321, and alkaline phosphatase is down to 204. The platelet count is still low at 88 Objective - Vital Signs Vital signs: Vital Signs Temp 99.1 F 02/25/20 12:00 Pulse 86 02/25/20 14:00 Resp 16 02/25/20 14:00 BP 113/59 02/25/20 14:00 Pulse Ox 92 L 02/25/20 14:00 Intake & Output 02/24/20 02/25/20 02/25/20 18:59 06:59 18:59 Intake Total 4204.146 6732.274 1766.919 Output Total 1430 1544 575 Balance 2774.146 -238.471 483.919 Weight 94.1 kg 94.5 kg Intake: IV 3375 700 750 Lactated Ringers 2,000 ml 1500 @ 999 mls/hr IV .Q2H1M NIKI Rx#:[id number] Magnesium Sulfate-D5w Pmx 200 1 gm In Dextrose/Water 1 100ml.bag @ 100 mls/hr IVPB Q1H NIKI Rx#: [id number] Piperacillin-Tazobactam 3 125 175 150 .375 gm In Sodium Chloride 0.9% 100 ml @ 25 mls/hr IVPB Q8HR NIKI Rx# :[id number] Potassium Chloride 10 meq 100 In Water For Injection 1 100ml.bag @ 100 mls/hr IVPB Q1HR NIKI Rx#: [id number] Sodium Chloride 0.9% 1, 1250 525 600 000 ml @ 75 mls/hr IV . [id number] NIKI Rx#:[id number] Intake, IV Titration 226.146 605.529 208.919 Amount Heparin Sod,Pork in 0.45% 159.311 90.689 NaCl 25,000 unit In 0.45 % NaCl 1 250ml.bag @ 10. 62 UNITS/KG/HR 9.993 mls/ hr IV .Q24H NIKI Rx#: [id number] Norepinephrine 32 mg In 39.515 Sodium Chloride 0.9% 218 ml @ 0.13 MCG/KG/MIN 5. 734 mls/hr IV .Q24H NIKI Rx#:[id number] Norepinephrine 4 mg In 218.618 254.000 Sodium Chloride 0.9% 250 ml @ 0.05 MCG/KG/MIN 17. 678 mls/hr IV .[id number] NIKI Rx#:[id number] Propofol 1,000 mg In 7.528 192.218 78.715 Empty Bag 1 bag @ Titrate IV .Q0M NIKI Rx#: [id number] Oral 100 Blood Product 603 Ffp 24 Cpd Unit 298 [id number] Ffp 24 Cpd Unit 305 [id number] Output: Gastric Drainage 100 Urine 1330 1544 575 Other: Voiding Method Indwelling Catheter Indwelling Catheter Indwelling Catheter - Exam General: , Comfortable extubated at this point in time Derm: no unusual rashes/lesions no unusual ecchymoses, warm, dry Head: atraumatic, normocephalic, symmetric Eyes: EOMI, no lid lag, anicteric sclera, pupils equal round reactive to light ENT: Nose and ears atraumatic, no thrush, no pharyngeal erythema Neck: No thyromegaly, no cervical lymphadenopathy, trachea midline, supple Mouth: no lip lesion, mucus membranes dry Cardiovascular: S1S2 tachycardic with grade 3 systolic ejection murmur with mid systolic click, positive posterior tibial pulse bilateral, no edema, capillary refill less than 2 seconds Lungs: Decreased breath sounds bilaterally, no rhonchi, no rales , no accessory muscle use Abdominal: soft, non tender to palpation , no guarding, no appreciable organomegaly, the bowel sounds are hypoactive and abdomen is slightly distended compared to yesterday and there is less tympany compared to yesterday Ext: no gross muscle atrophy, muscle strength 5 out of 5 in all 4 extremities grossly, no contractures, Neuro: CN II-XI grossly intact, light touch intact all 4 extremities, finger to nose within normal limits, Psych: Alert, oriented, appears lethargic and she is following commands and answering questions appropriately. - Labs CBC & Chem 7: 02/25/20 06:15 02/25/20 06:15 Labs: Abnormal Lab Results - Last 24 Hours (Table) 02/24/20 02/24/20 02/24/20 Range/Units 15:53 17:32 21:50 WBC (3.8-10.6) k/uL Hgb (11.4-16.0) gm/dL Plt Count (150-450) k/uL Neutrophils # (1.3-7.7) k/uL APTT 32.7 H (22.0-30.0) sec ABG pH 7.17 L* (7.35-7.45) ABG pCO2 59 H (35-45) mmHg ABG pO2 127 H (83-108) mmHg ABG O2 Saturation 97.8 H (94-97) % Chloride (98-107) mmol/L Carbon Dioxide (22-30) mmol/L BUN (7-17) mg/dL Glucose (74-99) mg/dL POC Glucose (mg/dL) 126 H (75-99) mg/dL Calcium (8.4-10.2) mg/dL Magnesium (1.6-2.3) mg/dL Total Bilirubin (0.2-1.3) mg/dL AST (14-36) U/L ALT (4-34) U/L Alkaline Phosphatase (38-126) U/L Total Protein (6.3-8.2) g/dL Albumin (3.5-5.0) g/dL Amylase (30-110) U/L Lipase (23-300) U/L 02/24/20 02/25/20 02/25/20 Range/Units 23:38 04:35 06:15 WBC (3.8-10.6) k/uL Hgb (11.4-16.0) gm/dL Plt Count (150-450) k/uL Neutrophils # (1.3-7.7) k/uL APTT (22.0-30.0) sec ABG pH (7.35-7.45) ABG pCO2 34 L (35-45) mmHg ABG pO2 125 H (83-108) mmHg ABG O2 Saturation 98.3 H (94-97) % Chloride 109 H (98-107) mmol/L Carbon Dioxide 21 L (22-30) mmol/L BUN 19 H (7-17) mg/dL Glucose 136 H (74-99) mg/dL POC Glucose (mg/dL) 135 H (75-99) mg/dL Calcium 7.6 L (8.4-10.2) mg/dL Magnesium 2.5 H (1.6-2.3) mg/dL Total Bilirubin 2.8 H (0.2-1.3) mg/dL AST 139 H (14-36) U/L ALT 321 H (4-34) U/L Alkaline Phosphatase 204 H (38-126) U/L Total Protein 5.7 L (6.3-8.2) g/dL Albumin 2.9 L (3.5-5.0) g/dL Amylase 185 H (30-110) U/L Lipase 379 H (23-300) U/L 02/25/20 02/25/20 02/25/20 Range/Units 06:15 06:15 07:39 WBC 17.1 H (3.8-10.6) k/uL Hgb 11.2 L (11.4-16.0) gm/dL Plt Count 88 L (150-450) k/uL Neutrophils # 15.6 H (1.3-7.7) k/uL APTT 37.4 H (22.0-30.0) sec ABG pH (7.35-7.45) ABG pCO2 (35-45) mmHg ABG pO2 (83-108) mmHg ABG O2 Saturation (94-97) % Chloride (98-107) mmol/L Carbon Dioxide (22-30) mmol/L BUN (7-17) mg/dL Glucose (74-99) mg/dL POC Glucose (mg/dL) 155 H (75-99) mg/dL Calcium (8.4-10.2) mg/dL Magnesium (1.6-2.3) mg/dL Total Bilirubin (0.2-1.3) mg/dL AST (14-36) U/L ALT (4-34) U/L Alkaline Phosphatase (38-126) U/L Total Protein (6.3-8.2) g/dL Albumin (3.5-5.0) g/dL Amylase (30-110) U/L Lipase (23-300) U/L 02/25/20 02/25/20 Range/Units 11:29 13:04 WBC (3.8-10.6) k/uL Hgb (11.4-16.0) gm/dL Plt Count (150-450) k/uL Neutrophils # (1.3-7.7) k/uL APTT 35.9 H (22.0-30.0) sec ABG pH (7.35-7.45) ABG pCO2 (35-45) mmHg ABG pO2 (83-108) mmHg ABG O2 Saturation (94-97) % Chloride (98-107) mmol/L Carbon Dioxide (22-30) mmol/L BUN (7-17) mg/dL Glucose (74-99) mg/dL POC Glucose (mg/dL) 144 H (75-99) mg/dL Calcium (8.4-10.2) mg/dL Magnesium (1.6-2.3) mg/dL Total Bilirubin (0.2-1.3) mg/dL AST (14-36) U/L ALT (4-34) U/L Alkaline Phosphatase (38-126) U/L Total Protein (6.3-8.2) g/dL Albumin (3.5-5.0) g/dL Amylase (30-110) U/L Lipase (23-300) U/L Microbiology - Last 24 Hours (Table) 02/25/20 03:48 Sputum Culture - Preliminary Sputum 02/23/20 16:08 Blood Culture Gram Stain - Final Blood Blood Culture - Final Klebsiella pneumoniae 02/23/20 18:05 Urine Culture - Final Urine,Voided Assessment and Plan Plan: 1 Acute gallstone pancreatitis, consider a stone in the CBD as the patient has dilation of the common bile duct. The patient was taken for an ERCP yesterday and the patient underwent a 7-Frisian stent insertion in the common bile duct with good drainage of the bile. The procedure was successful and the patient's LFTs are improving in addition to the improvement in the amylase and lipase and bilirubin and alkaline phosphatase. 2 Acute cholecystitis, with possible cholangitis and the patient had a gram- negative sepsis with Klebsiella pneumonia, currently on pressors and the patient is still on IV Zosyn 3 Acute abdominal pain secondary to above with secondary abdominal distention, possibly component of ileus 4 Sepsis with secondary hypotension, with Klebsiella pneumonia currently on IV Zosyn and the patient is still requiring pressors although less compared to yesterday 5 Leukocytosis secondary to above, improving 6 Lactic acidosis secondary to above, improving 7 Coumadin toxicity, recovered and the patient is currently on IV heparin reg arding her mechanical aortic valve 8 Congenital heart disease, post AVR (mechanical valve) 9 Hypothyroidism 10 abdominal distention secondary to above, improving 11 acute hypoxic respiratory failure secondary to above and a chest x-ray showing some atelectatic changes and small effusions bilaterally, the patient was intubated and placed on mechanical ventilation post ERCP. Currently she is extubated to 2 L of oxygen by nasal cannula. 12 non-anion gap metabolic acidosis with a serum bicarbonate improving and normalizing. Plan Continue IV fluids with normal saline at the rate of 125 mL an hour Wean off pressors and the patient continues to be on norepinephrine infusion 0.1 g per KG per minute continued IV Zosyn Monitor LFTs Monitor pancreatic enzymes including amylase and lipase Continue IV heparin Extubate this patient to a nasal cannula May provide some clear liquid diet at a later stage post extubation Dilaudid for pain control General surgeries on the case for possible cholecystectomy at a later stage Condition is critical we'll continue to follow. His ventilation with on a more than 30 minutes in the intensive care unit.
--- NOTE | 2020-02-25 15:56 | P.PN ---
Subjective Progress Note Date: 02/25/20 Principal diagnosis: gallstone pancreatitis patient underwent ERCP withent placement yesterday. Clinically she has improved. Her abdominal pain has improv Objective - Vital Signs Vital signs: Vital Signs Temp 99.1 F 02/25/20 12:00 Pulse 86 02/25/20 14:00 Resp 16 02/25/20 14:00 BP 113/59 02/25/20 14:00 Pulse Ox 92 L 02/25/20 14:00 Intake & Output 02/24/20 02/25/20 02/25/20 18:59 06:59 18:59 Intake Total 4204.146 2428.665 7664.919 Output Total 1430 1544 575 Balance 2774.146 -238.471 483.919 Weight 94.1 kg 94.5 kg Intake: IV 3375 700 750 Lactated Ringers 2,000 ml 1500 @ 999 mls/hr IV .Q2H1M NIKI Rx#:[id number] Magnesium Sulfate-D5w Pmx 200 1 gm In Dextrose/Water 1 100ml.bag @ 100 mls/hr IVPB Q1H NIKI Rx#: [id number] Piperacillin-Tazobactam 3 125 175 150 .375 gm In Sodium Chloride 0.9% 100 ml @ 25 mls/hr IVPB Q8HR NIKI Rx# :[id number] Potassium Chloride 10 meq 100 In Water For Injection 1 100ml.bag @ 100 mls/hr IVPB Q1HR NIKI Rx#: [id number] Sodium Chloride 0.9% 1, 1250 525 600 000 ml @ 75 mls/hr IV . [id number] NIKI Rx#:[id number] Intake, IV Titration 226.146 605.529 208.919 Amount Heparin Sod,Pork in 0.45% 159.311 90.689 NaCl 25,000 unit In 0.45 % NaCl 1 250ml.bag @ 10. 62 UNITS/KG/HR 9.993 mls/ hr IV .Q24H NIKI Rx#: [id number] Norepinephrine 32 mg In 39.515 Sodium Chloride 0.9% 218 ml @ 0.13 MCG/KG/MIN 5. 734 mls/hr IV .Q24H NIKI Rx#:[id number] Norepinephrine 4 mg In 218.618 254.000 Sodium Chloride 0.9% 250 ml @ 0.05 MCG/KG/MIN 17. 678 mls/hr IV .[id number] NIKI Rx#:[id number] Propofol 1,000 mg In 7.528 192.218 78.715 Empty Bag 1 bag @ Titrate IV .Q0M NIKI Rx#: [id number] Oral 100 Blood Product 603 Ffp 24 Cpd Unit 298 [id number] Ffp 24 Cpd Unit 305 [id number] Output: Gastric Drainage 100 Urine 1330 1544 575 Other: Voiding Method Indwelling Catheter Indwelling Catheter Indwelling Catheter - Gastrointestinal Gastrointestinal Comment(s): abdomen soft. There is less tenderness in thic area. - Labs CBC & Chem 7: 02/25/20 06:15 02/25/20 06:15 Labs: Abnormal Lab Results - Last 24 Hours (Table) 02/24/20 02/24/20 02/24/20 Range/Units 15:53 17:32 21:50 WBC (3.8-10.6) k/uL Hgb (11.4-16.0) gm/dL Plt Count (150-450) k/uL Neutrophils # (1.3-7.7) k/uL APTT 32.7 H (22.0-30.0) sec ABG pH 7.17 L* (7.35-7.45) ABG pCO2 59 H (35-45) mmHg ABG pO2 127 H (83-108) mmHg ABG O2 Saturation 97.8 H (94-97) % Chloride (98-107) mmol/L Carbon Dioxide (22-30) mmol/L BUN (7-17) mg/dL Glucose (74-99) mg/dL POC Glucose (mg/dL) 126 H (75-99) mg/dL Calcium (8.4-10.2) mg/dL Magnesium (1.6-2.3) mg/dL Total Bilirubin (0.2-1.3) mg/dL AST (14-36) U/L ALT (4-34) U/L Alkaline Phosphatase (38-126) U/L Total Protein (6.3-8.2) g/dL Albumin (3.5-5.0) g/dL Amylase (30-110) U/L Lipase (23-300) U/L 02/24/20 02/25/20 02/25/20 Range/Units 23:38 04:35 06:15 WBC (3.8-10.6) k/uL Hgb (11.4-16.0) gm/dL Plt Count (150-450) k/uL Neutrophils # (1.3-7.7) k/uL APTT (22.0-30.0) sec ABG pH (7.35-7.45) ABG pCO2 34 L (35-45) mmHg ABG pO2 125 H (83-108) mmHg ABG O2 Saturation 98.3 H (94-97) % Chloride 109 H (98-107) mmol/L Carbon Dioxide 21 L (22-30) mmol/L BUN 19 H (7-17) mg/dL Glucose 136 H (74-99) mg/dL POC Glucose (mg/dL) 135 H (75-99) mg/dL Calcium 7.6 L (8.4-10.2) mg/dL Magnesium 2.5 H (1.6-2.3) mg/dL Total Bilirubin 2.8 H (0.2-1.3) mg/dL AST 139 H (14-36) U/L ALT 321 H (4-34) U/L Alkaline Phosphatase 204 H (38-126) U/L Total Protein 5.7 L (6.3-8.2) g/dL Albumin 2.9 L (3.5-5.0) g/dL Amylase 185 H (30-110) U/L Lipase 379 H (23-300) U/L 02/25/20 02/25/20 02/25/20 Range/Units 06:15 06:15 07:39 WBC 17.1 H (3.8-10.6) k/uL Hgb 11.2 L (11.4-16.0) gm/dL Plt Count 88 L (150-450) k/uL Neutrophils # 15.6 H (1.3-7.7) k/uL APTT 37.4 H (22.0-30.0) sec ABG pH (7.35-7.45) ABG pCO2 (35-45) mmHg ABG pO2 (83-108) mmHg ABG O2 Saturation (94-97) % Chloride (98-107) mmol/L Carbon Dioxide (22-30) mmol/L BUN (7-17) mg/dL Glucose (74-99) mg/dL POC Glucose (mg/dL) 155 H (75-99) mg/dL Calcium (8.4-10.2) mg/dL Magnesium (1.6-2.3) mg/dL Total Bilirubin (0.2-1.3) mg/dL AST (14-36) U/L ALT (4-34) U/L Alkaline Phosphatase (38-126) U/L Total Protein (6.3-8.2) g/dL Albumin (3.5-5.0) g/dL Amylase (30-110) U/L Lipase (23-300) U/L 02/25/20 02/25/20 Range/Units 11:29 13:04 WBC (3.8-10.6) k/uL Hgb (11.4-16.0) gm/dL Plt Count (150-450) k/uL Neutrophils # (1.3-7.7) k/uL APTT 35.9 H (22.0-30.0) sec ABG pH (7.35-7.45) ABG pCO2 (35-45) mmHg ABG pO2 (83-108) mmHg ABG O2 Saturation (94-97) % Chloride (98-107) mmol/L Carbon Dioxide (22-30) mmol/L BUN (7-17) mg/dL Glucose (74-99) mg/dL POC Glucose (mg/dL) 144 H (75-99) mg/dL Calcium (8.4-10.2) mg/dL Magnesium (1.6-2.3) mg/dL Total Bilirubin (0.2-1.3) mg/dL AST (14-36) U/L ALT (4-34) U/L Alkaline Phosphatase (38-126) U/L Total Protein (6.3-8.2) g/dL Albumin (3.5-5.0) g/dL Amylase (30-110) U/L Lipase (23-300) U/L Microbiology - Last 24 Hours (Table) 02/25/20 03:48 Sputum Culture - Preliminary Sputum 02/23/20 16:08 Blood Culture Gram Stain - Final Blood Blood Culture - Final Klebsiella pneumoniae 02/23/20 18:05 Urine Culture - Final Urine,Voided Assessment and Plan Plan: gallstone pancreas. Patient willuled for ERCP with sphcterotomy once her coagulopathy has improv We will plan for laparoscopic cholecystectomy ththis admission.n.
[2020-02-25 17:07] LABS: Glucose,Whole Blood 125 mg/dL (75-99)
--- NOTE | 2020-02-25 18:33 | P.PN ---
Subjective Progress Note Date: 02/25/20 (delayed charting seen at 11 am) Principal diagnosis: abdominal pain Patient is a 69-year-old female with history of congenital heart disease status post mechanical aortic valve replacement 2 on Coumadin therapy, hypothyroidism, and menopausal symptoms continued on estrogen cream presented to the emergency department with complaints of abdominal pain. Patient is visiting here from [place]. In the emergency department she underwent an extensive evaluation. On arrival she was found to be tachycardic with a pulse of 117 and hypotensive with a blood pressure of 97/63. Laboratory analysis showed a lactic acid of 5.5, INR 6.3, white blood cell count 22.4, bilirubin 7.2, AST 432, ALT 530, alk Phosphatase 369, amylase 5656, and lipase of greater than 20,000. G allbladder ultrasound showed mild hepatic duct dilatation with hydrophilic gallbladder and gallbladder wall thickening with small gallstones or dilated common bile duct. CT abdomen and pelvis showed cholecystitis with uterine mass reflecting underlying leiomyomatous changes. She was subsequently diagnosed with ascending cholangitis with sepsis. She was started on IV fluids and Zosyn. Cardiology was contacted for need for INR reversal as patient has a mechanical aortic valve, GI was contacted and plans for ERCP, surgery was contacted, and critical care was contacted. Arrangements were made for admission to the ICU. She was given vitamin K and FFP. Overnight the patient became both extensive necessitating levophed drip. Her INR had corrected to 2, upper GI 101.5 or less she was given 3 units of FFP. On the morning of 02/23 shows to be thrombocytopenic, white blood cell count had improved, INR was 2, lipase 6079, bilirubin 7.8, AST 528, ALT 568. She had a repeat CT of the abdomen and pelvis obtained which again demonstrated signs of an enlarged gallbladder consistent with cholecystitis. There was concern for ileus and she was seen by surgery and NG tube was placed. She underwent ERCP on 02/22 with placement of a CBD stent, she did develope some respiratory failure and was intubated with the procedure. She was able to be extubated by the morning of 02/23. Patient seen and examined at bedside. Feeling better today, abdominal pain is better, shortness of breath is better, no nausea, still not feeling hungry. No other complaints currently. Objective - Vital Signs Vital signs: Vital Signs Temp 99.1 F 02/25/20 12:00 Pulse 92 02/25/20 18:00 Resp 13 02/25/20 18:00 BP 100/58 02/25/20 18:00 Pulse Ox 92 L 02/25/20 18:00 Intake & Output 02/24/20 02/25/20 02/25/20 18:59 06:59 18:59 Intake Total 4204.146 1771.888 3830.566 Output Total 1430 1544 825 Balance 2774.146 -238.471 582.566 Weight 94.1 kg 94.5 kg Intake: IV 3375 700 1050 Lactated Ringers 2,000 ml 1500 @ 999 mls/hr IV .Q2H1M [facility] Rx#:[id number] Magnesium Sulfate-D5w Pmx 200 1 gm In Dextrose/Water 1 100ml.bag @ 100 mls/hr IVPB Q1H [facility] Rx#: [id number] Piperacillin-Tazobactam 3 125 175 150 .375 gm In Sodium Chloride 0.9% 100 ml @ 25 mls/hr IVPB Q8HR [facility] Rx# :[id number] Potassium Chloride 10 meq 100 In Water For Injection 1 100ml.bag @ 100 mls/hr IVPB Q1HR [facility] Rx#: [id number] Sodium Chloride 0.9% 1, 1250 525 900 000 ml @ 75 mls/hr IV . [id number] [facility] Rx#:[id number] Intake, IV Titration 226.146 605.529 257.566 Amount Heparin Sod,Pork in 0.45% 159.311 135.763 NaCl 25,000 unit In 0.45 % NaCl 1 250ml.bag @ 10. 62 UNITS/KG/HR 9.993 mls/ hr IV .Q24H [facility] Rx#: [id number] Norepinephrine 32 mg In 43.088 Sodium Chloride 0.9% 218 ml @ 0.13 MCG/KG/MIN 5. 734 mls/hr IV .Q24H [facility] Rx#:[id number] Norepinephrine 4 mg In 218.618 254.000 Sodium Chloride 0.9% 250 ml @ 0.05 MCG/KG/MIN 17. 678 mls/hr IV .[id number] [facility] Rx#:[id number] Propofol 1,000 mg In 7.528 192.218 78.715 Empty Bag 1 bag @ Titrate IV .Q0M [facility] Rx#: [id number] Oral 100 Blood Product 603 Ffp 24 Cpd Unit 298 [id number] Ffp 24 Cpd Unit 305 [id number] Output: Gastric Drainage 100 Urine 1330 1544 825 Other: Voiding Method Indwelling Catheter Indwelling Catheter Indwelling Catheter - Exam General: Ill appearing, no distress, appears at stated age Derm: warm, dry Head: atraumatic, normocephalic, symmetric Eyes: EOMI, no lid lag, anicteric sclera Mouth: no lip lesion, mucus membranes moist Cardiovascular: S1-S2 regular with mechanical click midsystolic, positive posterior tibial pulse bilateral, Lungs: Decreased breath sounds bilateral, no rhonchi, no rales , no accessory muscle use Abdominal: soft, tender to palpation right upper quadrant, no guarding, no appreciable organomegaly Ext: no gross muscle atrophy, trace edema, no contractures Neuro: CN II-XI grossly intact, no focal neuro deficits Psych: Awake, oriented, appropriate affect - Labs CBC & Chem 7: 02/25/20 06:15 02/25/20 06:15 Labs: Abnormal Lab Results - Last 24 Hours (Table) 02/24/20 02/24/20 02/25/20 Range/Units 21:50 23:38 04:35 WBC (3.8-10.6) k/uL Hgb (11.4-16.0) gm/dL Plt Count (150-450) k/uL Neutrophils # (1.3-7.7) k/uL APTT 32.7 H (22.0-30.0) sec ABG pCO2 34 L (35-45) mmHg ABG pO2 125 H (83-108) mmHg ABG O2 Saturation 98.3 H (94-97) % Chloride (98-107) mmol/L Carbon Dioxide (22-30) mmol/L BUN (7-17) mg/dL Glucose (74-99) mg/dL POC Glucose (mg/dL) 135 H (75-99) mg/dL Calcium (8.4-10.2) mg/dL Magnesium (1.6-2.3) mg/dL Total Bilirubin (0.2-1.3) mg/dL AST (14-36) U/L ALT (4-34) U/L Alkaline Phosphatase (38-126) U/L Total Protein (6.3-8.2) g/dL Albumin (3.5-5.0) g/dL Amylase (30-110) U/L Lipase (23-300) U/L 02/25/20 02/25/20 02/25/20 Range/Units 06:15 06:15 06:15 WBC 17.1 H (3.8-10.6) k/uL Hgb 11.2 L (11.4-16.0) gm/dL Plt Count 88 L (150-450) k/uL Neutrophils # 15.6 H (1.3-7.7) k/uL APTT 37.4 H (22.0-30.0) sec ABG pCO2 (35-45) mmHg ABG pO2 (83-108) mmHg ABG O2 Saturation (94-97) % Chloride 109 H (98-107) mmol/L Carbon Dioxide 21 L (22-30) mmol/L BUN 19 H (7-17) mg/dL Glucose 136 H (74-99) mg/dL POC Glucose (mg/dL) (75-99) mg/dL Calcium 7.6 L (8.4-10.2) mg/dL Magnesium 2.5 H (1.6-2.3) mg/dL Total Bilirubin 2.8 H (0.2-1.3) mg/dL AST 139 H (14-36) U/L ALT 321 H (4-34) U/L Alkaline Phosphatase 204 H (38-126) U/L Total Protein 5.7 L (6.3-8.2) g/dL Albumin 2.9 L (3.5-5.0) g/dL Amylase 185 H (30-110) U/L Lipase 379 H (23-300) U/L 02/25/20 02/25/20 02/25/20 Range/Units 07:39 11:29 13:04 WBC (3.8-10.6) k/uL Hgb (11.4-16.0) gm/dL Plt Count (150-450) k/uL Neutrophils # (1.3-7.7) k/uL APTT 35.9 H (22.0-30.0) sec ABG pCO2 (35-45) mmHg ABG pO2 (83-108) mmHg ABG O2 Saturation (94-97) % Chloride (98-107) mmol/L Carbon Dioxide (22-30) mmol/L BUN (7-17) mg/dL Glucose (74-99) mg/dL POC Glucose (mg/dL) 155 H 144 H (75-99) mg/dL Calcium (8.4-10.2) mg/dL Magnesium (1.6-2.3) mg/dL Total Bilirubin (0.2-1.3) mg/dL AST (14-36) U/L ALT (4-34) U/L Alkaline Phosphatase (38-126) U/L Total Protein (6.3-8.2) g/dL Albumin (3.5-5.0) g/dL Amylase (30-110) U/L Lipase (23-300) U/L 02/25/20 Range/Units 17:05 WBC (3.8-10.6) k/uL Hgb (11.4-16.0) gm/dL Plt Count (150-450) k/uL Neutrophils # (1.3-7.7) k/uL APTT (22.0-30.0) sec ABG pCO2 (35-45) mmHg ABG pO2 (83-108) mmHg ABG O2 Saturation (94-97) % Chloride (98-107) mmol/L Carbon Dioxide (22-30) mmol/L BUN (7-17) mg/dL Glucose (74-99) mg/dL POC Glucose (mg/dL) 125 H (75-99) mg/dL Calcium (8.4-10.2) mg/dL Magnesium (1.6-2.3) mg/dL Total Bilirubin (0.2-1.3) mg/dL AST (14-36) U/L ALT (4-34) U/L Alkaline Phosphatase (38-126) U/L Total Protein (6.3-8.2) g/dL Albumin (3.5-5.0) g/dL Amylase (30-110) U/L Lipase (23-300) U/L Microbiology - Last 24 Hours (Table) 02/25/20 03:48 Sputum Culture - Preliminary Sputum 02/23/20 16:08 Blood Culture Gram Stain - Final Blood Blood Culture - Final Klebsiella pneumoniae 02/23/20 18:05 Urine Culture - Final Urine,Voided Assessment and Plan Assessment: Acute Cholecystitis/Cholangitis with septic shock, gallstone pancreatitis and klebsiella bacteremia, S/P CBD stent - GI consult: ERCP again in a few days for stent and CBD stone removal - general surgery recs appreciated: plan for Eva this hospital admission - Zosyn - IV fluids - Clear liquids - Follow blood pressures closely Acute liver failure likely secondary to obstruction due to gallstones - improving -GI recommendations appreciated -Liver ultrasound does show mildly heterogeneous liver Coumadin coagulopathy with supratherapeutic INR, Mechanical aortic valve -s/p reversal - on heparin gtt -INR in AM Aortic valve replacement secondary to congenital heart disease -Cardiology recommendations appreciated -Echo with normally functioning mechanical aortic valve -Reversed Coumadin -Heparin drip Thrombocytopenia - Follow CBC - reactive - follow closely as the have fallen by 50%. Suspect patient likely has had previous exposure to IV heparin and monitor closely for concerns for HIT. Though initial drop was before heparin exposure. Hypothyroidism -Thyroid medications on hold Hypomagnesemia, resolved Hyponatremia, resolved Hypokalemia, resolved Metabolic acidosis secondary to lactic acidosis, resolved Acute kidney injury versus chronic kidney disease, resolved Lactic acidosis secondary to sepsis and liver dysfunction, resolved CODE STATUS: Full DVT prophylaxis: Supratherapeutic INR Discussed with: Patient, nursing, Dr. Chisholm, Dr. Jara Anticipated discharge date: 4-[address]: Home A total of 45 minutes was spent on the care of this complex patient more than 50% of the time was spent in counseling and care coordination.
--- NOTE | 2020-02-25 21:16 | PN ---
PROGRESS NOTE FOLLOW-UP NOTE: This patient is a 69-year-old lady who is admitted to hospital with ascending cholangitis, has a mechanical aortic valve. Yesterday she underwent an ERCP with stent placement. This morning she is feeling better. She was just extubated this morning from her ERCP. She remains in sinus rhythm. On exam, comfortable at rest. Vital signs are stable. Chest exam reveals good air entry bilaterally. Heart exam reveals first and second heart sounds. Mechanical valve sound is heard. Abdomen is soft. Examination of extremities did not reveal any edema. The patient is on IV heparin for the mechanical valve. They are following the protocol. Still inadequately anticoagulated. ASSESSMENT: Status post aortic valve replacement. PLAN: Patient is on IV heparin, which we are going to continue. We will switch her to Coumadin after the cholecystectomy. MMODL / IJN: [id number] /
[2020-02-25 21:18] LABS: Glucose,Whole Blood 110 mg/dL (75-99)
[2020-02-26] MEDS: PIPERACILLIN-TAZOBACTAM 3.375 GM in SODIUM CHLORIDE 0.9% 100 ML IVPB SCH ×3 (00:18→17:31)
[2020-02-26] MEDS: HEPARIN SODIUM,PORCINE 5,000 UNIT/ML 1 ML VIAL IV PRN ×3 (00:29→19:26)
[2020-02-26] MEDS: HYDROmorphone 1 MG/ML 1 ML SYRINGE IVP PRN ×4 (01:52→20:03)
[2020-02-26] MEDS: SODIUM CHLORIDE 0.9% 1,000 ML IV SCH ×2 (01:58→17:32)
[2020-02-26] MEDS: IPRATROPIUM-ALBUTEROL 3 ML NEB INHALATION SCH ×7 (02:20→19:51)
--- NOTE | 2020-02-26 04:08 | P.PN ---
Subjective Progress Note Date: 02/25/20 Principal diagnosis: Ascending cholangitis, gallstone pancreatitis, elevated liver enzymes Patient is seen lying in bed today in the ICU. Reporting less abdominal pain. Overall feeling better. Objective - Vital Signs Vital signs: Vital Signs Temp 99.1 F 02/25/20 12:00 Pulse 82 02/25/20 12:00 Resp 20 02/25/20 12:00 BP 120/62 02/25/20 12:00 Pulse Ox 94 L 02/25/20 12:00 Intake & Output 02/24/20 02/25/20 02/25/20 18:59 06:59 18:59 Intake Total 4204.146 1305.529 660.973 Output Total 1430 1544 435 Balance 2774.146 -238.471 225.973 Weight 94.1 kg 94.5 kg Intake: IV 3375 700 550 Lactated Ringers 2,000 ml 1500 @ 999 mls/hr IV .Q2H1M [facility] Rx#:[id number] Magnesium Sulfate-D5w Pmx 200 1 gm In Dextrose/Water 1 100ml.bag @ 100 mls/hr IVPB Q1H [facility] Rx#: [id number] Piperacillin-Tazobactam 3 125 175 100 .375 gm In Sodium Chloride 0.9% 100 ml @ 25 mls/hr IVPB Q8HR [facility] Rx# :[id number] Potassium Chloride 10 meq 100 In Water For Injection 1 100ml.bag @ 100 mls/hr IVPB Q1HR [facility] Rx#: [id number] Sodium Chloride 0.9% 1, 1250 525 450 000 ml @ 75 mls/hr IV . [id number] [facility] Rx#:[id number] Intake, IV Titration 226.146 605.529 110.973 Amount Heparin Sod,Pork in 0.45% 159.311 NaCl 25,000 unit In 0.45 % NaCl 1 250ml.bag @ 10. 62 UNITS/KG/HR 9.993 mls/ hr IV .Q24H [facility] Rx#: [id number] Norepinephrine 32 mg In 32.258 Sodium Chloride 0.9% 218 ml @ 0.13 MCG/KG/MIN 5. 734 mls/hr IV .Q24H [facility] Rx#:[id number] Norepinephrine 4 mg In 218.618 254.000 Sodium Chloride 0.9% 250 ml @ 0.05 MCG/KG/MIN 17. 678 mls/hr IV .[id number] [facility] Rx#:[id number] Propofol 1,000 mg In 7.528 192.218 78.715 Empty Bag 1 bag @ Titrate IV .Q0M [facility] Rx#: [id number] Blood Product 603 Ffp 24 Cpd Unit 298 [id number] Ffp 24 Cpd Unit 305 [id number] Output: Gastric Drainage 100 Urine 1330 1544 435 Other: Voiding Method Indwelling Catheter Indwelling Catheter Indwelling Catheter - Exam On physical examination, patient appears comfortable in no apparent distress. HEAD: Normocephalic, atraumatic. EYES: No scleral icterus. No conjunctival injection. MOUTH: No lesions, tongue midline. NECK: Trachea midline, no gross abnormalities. ABDOMEN: Soft, mildly tender to palpation. Bowel sounds are positive. No organomegaly. No guarding or rigidity. EXTREMITIES: No pedal edema. SKIN: No rashes, no jaundice. NEUROLOGIC: Alert and oriented x3. No focal deficits. - Labs CBC & Chem 7: 02/25/20 06:15 02/25/20 06:15 Labs: Abnormal Lab Results - Last 24 Hours (Table) 02/24/20 02/24/20 02/24/20 Range/Units 15:53 17:32 21:50 WBC (3.8-10.6) k/uL Hgb (11.4-16.0) gm/dL Plt Count (150-450) k/uL Neutrophils # (1.3-7.7) k/uL APTT 32.7 H (22.0-30.0) sec ABG pH 7.17 L* (7.35-7.45) ABG pCO2 59 H (35-45) mmHg ABG pO2 127 H (83-108) mmHg ABG O2 Saturation 97.8 H (94-97) % Chloride (98-107) mmol/L Carbon Dioxide (22-30) mmol/L BUN (7-17) mg/dL Glucose (74-99) mg/dL POC Glucose (mg/dL) 126 H (75-99) mg/dL Calcium (8.4-10.2) mg/dL Magnesium (1.6-2.3) mg/dL Total Bilirubin (0.2-1.3) mg/dL AST (14-36) U/L ALT (4-34) U/L Alkaline Phosphatase (38-126) U/L Total Protein (6.3-8.2) g/dL Albumin (3.5-5.0) g/dL Amylase (30-110) U/L Lipase (23-300) U/L 02/24/20 02/25/20 02/25/20 Range/Units 23:38 04:35 06:15 WBC (3.8-10.6) k/uL Hgb (11.4-16.0) gm/dL Plt Count (150-450) k/uL Neutrophils # (1.3-7.7) k/uL APTT (22.0-30.0) sec ABG pH (7.35-7.45) ABG pCO2 34 L (35-45) mmHg ABG pO2 125 H (83-108) mmHg ABG O2 Saturation 98.3 H (94-97) % Chloride 109 H (98-107) mmol/L Carbon Dioxide 21 L (22-30) mmol/L BUN 19 H (7-17) mg/dL Glucose 136 H (74-99) mg/dL POC Glucose (mg/dL) 135 H (75-99) mg/dL Calcium 7.6 L (8.4-10.2) mg/dL Magnesium 2.5 H (1.6-2.3) mg/dL Total Bilirubin 2.8 H (0.2-1.3) mg/dL AST 139 H (14-36) U/L ALT 321 H (4-34) U/L Alkaline Phosphatase 204 H (38-126) U/L Total Protein 5.7 L (6.3-8.2) g/dL Albumin 2.9 L (3.5-5.0) g/dL Amylase 185 H (30-110) U/L Lipase 379 H (23-300) U/L 02/25/20 02/25/20 02/25/20 Range/Units 06:15 06:15 07:39 WBC 17.1 H (3.8-10.6) k/uL Hgb 11.2 L (11.4-16.0) gm/dL Plt Count 88 L (150-450) k/uL Neutrophils # 15.6 H (1.3-7.7) k/uL APTT 37.4 H (22.0-30.0) sec ABG pH (7.35-7.45) ABG pCO2 (35-45) mmHg ABG pO2 (83-108) mmHg ABG O2 Saturation (94-97) % Chloride (98-107) mmol/L Carbon Dioxide (22-30) mmol/L BUN (7-17) mg/dL Glucose (74-99) mg/dL POC Glucose (mg/dL) 155 H (75-99) mg/dL Calcium (8.4-10.2) mg/dL Magnesium (1.6-2.3) mg/dL Total Bilirubin (0.2-1.3) mg/dL AST (14-36) U/L ALT (4-34) U/L Alkaline Phosphatase (38-126) U/L Total Protein (6.3-8.2) g/dL Albumin (3.5-5.0) g/dL Amylase (30-110) U/L Lipase (23-300) U/L 02/25/20 Range/Units 11:29 WBC (3.8-10.6) k/uL Hgb (11.4-16.0) gm/dL Plt Count (150-450) k/uL Neutrophils # (1.3-7.7) k/uL APTT (22.0-30.0) sec ABG pH (7.35-7.45) ABG pCO2 (35-45) mmHg ABG pO2 (83-108) mmHg ABG O2 Saturation (94-97) % Chloride (98-107) mmol/L Carbon Dioxide (22-30) mmol/L BUN (7-17) mg/dL Glucose (74-99) mg/dL POC Glucose (mg/dL) 144 H (75-99) mg/dL Calcium (8.4-10.2) mg/dL Magnesium (1.6-2.3) mg/dL Total Bilirubin (0.2-1.3) mg/dL AST (14-36) U/L ALT (4-34) U/L Alkaline Phosphatase (38-126) U/L Total Protein (6.3-8.2) g/dL Albumin (3.5-5.0) g/dL Amylase (30-110) U/L Lipase (23-300) U/L Microbiology - Last 24 Hours (Table) 02/25/20 03:48 Sputum Culture - Preliminary Sputum 02/23/20 16:08 Blood Culture Gram Stain - Final Blood Blood Culture - Final Klebsiella pneumoniae 02/23/20 18:05 Urine Culture - Final Urine,Voided Assessment and Plan (1) Ascending cholangitis Narrative/Plan: 69-year-old female with multiple medical comorbidities presenting with a constellation of symptoms and diagnosed with ascending cholangitis and acute gallstone pancreatitis. She is status post ERCP with biliary stent placement. Clinically much improved with improved liver enzymes and WBC count. Plan is for repeat ERCP with sphincterotomy and balloon extraction of suspected biliary stone. Current Visit: Yes Status: Acute Code(s): K83.09 - OTHER CHOLANGITIS SNOMED Code(s): 07193758 (2) Acute gallstone pancreatitis Current Visit: Yes Status: Acute Code(s): K85.10 - BILIARY ACUTE PANCREATITIS WITHOUT NECROSIS OR INFECTION SNOMED Code(s): 194656273 (3) Elevated liver enzymes Current Visit: Yes Status: Acute Code(s): R74.8 - ABNORMAL LEVELS OF OTHER SERUM ENZYMES SNOMED Code(s): 687809223 (4) Supratherapeutic INR Current Visit: Yes Status: Acute Code(s): R79.1 - ABNORMAL COAGULATION PROFILE SNOMED Code(s): 565068334 Plan: Supportive care Continue broad-spectrum antibiotic therapy Continue IV fluids and pressor support Appreciate recommendations from intensive the services surgical service Plan is for repeat ERCP for sphincterotomy with stone extraction, possibly tomorrow afternoon, with timing to be determined by clinical course Thank you for allowing us to participate in the care of the patient
[2020-02-26] MEDS: NOREPINEPHRINE 32 MG in SODIUM CHLORIDE 0.9% 218 ML IV SCH (04:23)
[2020-02-26] MEDS: HEPARIN SOD,PORK IN 0.45% NACL 25,000 UNIT in 0.45% NACL 1 250ML.BAG IV SCH ×2 (04:26→17:42)
[2020-02-26 06:32] LABS: INR 0.9 (<1.2); Partial Thromboplastin Time 38.1 sec (22.0-30.0); Prothrombin Time 9.9 sec (9.0-12.0)
[2020-02-26] MEDS ORDERED: HEPARIN SODIUM,PORCINE 5,000 UNIT/ML 1 ML VIAL IV STA (06:39)
[2020-02-26 06:40] LABS: Basophils % (A) 0 %; Eosinophils # (A) 0.2 k/uL (0-0.7); Eosinophils % (A) 1 %; HCT 30.8 % (34.0-46.0); HGB 9.9 gm/dL (11.4-16.0); Hypochromasia Marked; Lymphocytes # (A) 1.1 k/uL (1.0-4.8); Lymphocytes % (A) 9 %; MCH 25.7 pg (25.0-35.0); MCHC 32.1 g/dL (31.0-37.0); MCV 80.1 fL (80.0-100.0); Mean Platelet Volume 7.8; Monocytes # (A) 0.3 k/uL (0-1.0); Monocytes % (A) 2 %; Neutrophils # (A) 11.1 k/uL (1.3-7.7); Neutrophils % (A) 87 %; Platelet Count 104 k/uL (150-450); RBC 3.84 m/uL (3.80-5.40); RDW 15.1 % (11.5-15.5); WBC 12.9 k/uL (3.8-10.6)
[2020-02-26 06:50] LABS: ALT 215 U/L (4-34); AST 57 U/L (14-36); African American GFR (CKD) >90 (>60 ml/min/1.73 sqM); Albumin 2.7 g/dL (3.5-5.0); Alkaline Phosphatase 149 U/L (38-126); Amylase 54 U/L (30-110); Anion Gap 4 mmol/L; Blood Urea Nitrogen 16 mg/dL (7-17); Calcium 7.8 mg/dL (8.4-10.2); Carbon Dioxide 24 mmol/L (22-30); Chloride 106 mmol/L (98-107); Glucose 83 mg/dL (74-99); Non-African American GFR(CKD) >90 (>60 ml/min/1.73 sqM); Potassium 3.7 mmol/L (3.5-5.1); Sodium 134 mmol/L (137-145); Total Protein 5.4 g/dL (6.3-8.2)
[2020-02-26 07:17] LABS: Glucose,Whole Blood 80 mg/dL (75-99)
--- NOTE | 2020-02-26 07:53 | XR ---
EXAMINATION TYPE: XR chest 1V portable DATE OF EXAM: 02/26/2020 COMPARISON: 02/25/2020 HISTORY: Tube removal TECHNIQUE: Single frontal view of the chest is obtained. FINDINGS: Basilar infiltrates and/or atelectasis persist without significant change. Suspect small e ffusions. Endotracheal and NG tubes have been removed. Cardiomediastinal silhouette is stable. Sterno yaneth wires and mediastinal clips. Cardiac Valvular prosthesis noted. IMPRESSION: No significant interval change appreciated.
[2020-02-26] MEDS: THYROID, PORK 30 MG TAB PO SCH (08:23)
[2020-02-26] MEDS: PANTOPRAZOLE 40 MG/10 ML VIAL IV SCH (08:25)
[2020-02-26] MEDS: POTASSIUM CHLORIDE 10 MEQ in WATER FOR INJECTION 1 100ML.BAG IVPB SCH ×2 (08:26→11:31)
[2020-02-26 11:44] LABS: Glucose,Whole Blood 92 mg/dL (75-99)
--- NOTE | 2020-02-26 11:50 | PN ---
PROGRESS NOTE DATE OF SERVICE: 02/26/2020 The patient is a 69-year-old pleasant white female admitted to hospital with gram- negative bacteremia and ascending cholangitis. She is in the intensive care unit, was on pressors and antibiotics. She underwent an ERCP two days ago with CBD stent placement. She is doing much better. Her overall condition has improved. Pancreatitis has significantly improved. Amylase and lipase today are normal. The patient was on Coumadin for prosthetic valve replacement, which is currently on hold and presently on IV heparin. She complains of some mild epigastric discomfort. No nausea, vomiting. On a clear liquid diet, tolerating well. PHYSICAL EXAMINATION: She appears comfortable. No apparent distress. VITAL SIGNS: Stable. Blood pressure is 116/61, pulse temperature 97.8. HEENT examination unremarkable. Conjunctivae pink, sclerae anicteric. Oral cavity no lesions. NECK no JVD or lymph node enlargement. CHEST: Clear to auscultation. HEART: Regular rate and rhythm. ABDOMEN: Soft. Mild tenderness in the epigastric area. The rest of the abdomen is benign. Bowel sounds are positive. EXTREMITIES: No pedal edema. SKIN: No rashes. NEUROLOGIC: Alert and oriented x3. No focal deficits. LABS: WBC 12.9, hemoglobin 9.9, platelets normal. T-bilirubin is down to 2. AST 57, ALT 215, alkaline phosphatase 149. Amylase and lipase are normal at 54 and 127. IMPRESSION: 1. Ascending cholangitis and gram-negative bacteremia, status post ERCP which revealed a common bile duct stone. Common bile duct stent placed and patient doing well. 2. Gram-negative bacteremia/sepsis, on broad-spectrum antibiotics. 3. History of prosthetic aortic valve replacement, presently on IV heparin. 4. Acute pancreatitis, resolving. 5. Leukocytosis improving. RECOMMENDATIONS: 1. Continue with a clear liquid diet. 2. Continue with IV heparin. 3. Symptomatic and supportive care. 4. Continue broad-spectrum antibiotics. 5. We will proceed with an ERCP with biliary sphincterotomy and CBD stone removal tomorrow. I discussed with the patient risks, benefits and complications. He is agreeable to it. Discussed with Dr. Jara who plans on removing gallbladder surgery on Saturday. Thank you for this consultation. MMODL / IJN: [id number] /
--- NOTE | 2020-02-26 14:02 | PN ---
PROGRESS NOTE 69-year-old lady with history of mechanical aortic valve is admitted to hospital with ascending cholangitis. She is doing much better. White cell count has come down. No longer febrile. She is on heparin, still having challenges in getting therapeutic anticoagulation. We will check another PTT and maybe give an extra bolus. On exam, comfortable at rest. Vital signs are stable. There is no jugular venous distention. Chest exam reveals good air entry bilaterally. Heart exam reveals first and second heart sounds. Mechanical valve sound is heard. Abdomen is soft. Exam of extremities did not reveal any edema. Labs show potassium of 3.7, creatinine is 0.5, hemoglobin is 9.9. ASSESSMENT: 1. Ascending cholangitis. 2. History of mechanical aortic valve replacement. PLAN: Patient will continue the IV heparin. We will switch her to Coumadin after the cholecystectomy. JONELLE / KARINAN: [id number] /
--- NOTE | 2020-02-26 14:33 | P.PN ---
Subjective Progress Note Date: 02/26/20 On today's evaluation of 02/25/2020 the patient is post ERCP and the procedure was successful and there is been improvement in the patient's amylase and lipase and LFTs and the bilirubin level. The abdomen is less tense and tender and distended compared to yesterday. Bowel sounds remain hypoactive. The patient remains on IV Zosyn regarding a klebsiella pneumonia sepsis as the area was cultured in the blood. This morning, the patient is afebrile. The patient has hemodynamically improved on normal saline at the rate of 75 mL's an hour and the patient is currently on Lasix pressors which is running in the order of 0.1 g per KG per minute. Nevertheless this was being weaned off. NG tube has produced around 250 mL over the past 12 hours. The patient meanwhile is on a mechanical ventilator on assist control mode with tidal volume of 450, FiO2 of 40% with a PEEP of 5 and a rate of 16. The patient was given a sedation holiday and she woke up nicely and she was very much appropriate. At that point when he parameters were checked and the patient is rapid shallow breathing index of 45. She was given a CPAP trial with upper support of 5 and PEEP of 5 and after tolerating this for around 30 minutes the patient was extubated to nasal cannula. She remains on IV heparin regarding a mechanical aortic valve. No other significant events otherwise for now. The patient is awake and alert and she is following commands. Her white cell count is down to 17.1.her creatinine is at 0.7. He'll bilirubin is down to 2.8. AST is down to 139, ALT is down to 321, and alkaline phosphatase is down to 204. The platelet count is still low at 88 On today's evaluation of 02/26/2020, the patient is still recovering from her septic shock that was related to cholecystitis, cholangitis and gallstone pancreatitis pH is post ERCP. Her liver function tests continued to improve. Her bilirubin and ALT and AST are steadily declining. Nevertheless, the patient seems to be needing another ERCP that will be done tomorrow. Following that, the patient will need a cholecystectomy which is being planned for Saturday of next week. The patient is on no pressors. The patient is receiving IV fluids w ith normal saline at the rate of 75 mL an hour. She was taken off the norepinephrine infusion. She remains on IV heparin regarding her mechanical aortic valve and the patient is going to maintain a therapeutic PTT. No cervical nausea or vomiting. Abdomen is slightly distended and there may be a component of ileus as on today's evaluation, the patient has some tympany. The blood culture was positive for Klebsiella. She remains on IV Zosyn. She was extubated yesterday. The chest exit showing small bilateral pleural effusions. No signs of any significant fluid overload. The white cell count is at 12. Electrolytes are all within normal limits. The patient's bilirubin is down to 2.0. AST is down to 57. ALT is down to 215 and alkaline phosphatase is down to 149. Lipase is also normalized and is down to 127. Objective - Vital Signs Vital signs: Vital Signs Temp 98.6 F 02/26/20 12:00 Pulse 91 02/26/20 12:00 Resp 23 02/26/20 12:00 BP 115/61 02/26/20 12:00 Pulse Ox 94 L 02/26/20 12:00 Intake & Output 02/25/20 02/26/20 02/26/20 18:59 06:59 18:59 Intake Total 4280.174 2196.564 865 Output Total 825 610 245 Balance 582.566 538.564 620 Weight 96.7 kg 96.7 kg Intake: IV 1050 900 415 Piperacillin-Tazobactam 3 150 25 .375 gm In Sodium Chloride 0.9% 100 ml @ 25 mls/hr IVPB Q8HR NIKI Rx# :[id number] Potassium Chloride 10 meq 100 In Water For Injection 1 100ml.bag @ 100 mls/hr IVPB Q1HR NIKI Rx#: [id number] Sodium Chloride 0.9% 1, 900 900 290 000 ml @ 75 mls/hr IV . [id number] NIKI Rx#:[id number] Intake, IV Titration 257.566 248.564 300 Amount Heparin Sod,Pork in 0.45% 135.763 248.564 NaCl 25,000 unit In 0.45 % NaCl 1 250ml.bag @ 10. 62 UNITS/KG/HR 9.993 mls/ hr IV .Q24H NIKI Rx#: [id number] Norepinephrine 32 mg In 43.088 Sodium Chloride 0.9% 218 ml @ 0.13 MCG/KG/MIN 5. 734 mls/hr IV .Q24H NIKI Rx#:[id number] Piperacillin-Tazobactam 3 100 .375 gm In Sodium Chloride 0.9% 100 ml @ 25 mls/hr IVPB Q8HR NIKI Rx# :[id number] Potassium Chloride 10 meq 100 In Water For Injection 1 100ml.bag @ 100 mls/hr IVPB Q1H NIKI Rx#: [id number] Potassium Chloride 10 meq 100 In Water For Injection 1 100ml.bag @ 100 mls/hr IVPB Q1H NIKI Rx#: [id number] Propofol 1,000 mg In 78.715 Empty Bag 1 bag @ Titrate IV .Q0M NIKI Rx#: [id number] Oral 100 150 Output: Urine 825 610 245 Other: Voiding Method Indwelling Catheter Indwelling Catheter Indwelling Catheter - Exam General: , Comfortable, currently on 3 L of oxygen by nasal cannula with a pulse ox of 94% Derm: no unusual rashes/lesions no unusual ecchymoses, warm, dry Head: atraumatic, normocephalic, symmetric Eyes: EOMI, no lid lag, anicteric sclera, pupils equal round reactive to light ENT: Nose and ears atraumatic, no thrush, no pharyngeal erythema Neck: No thyromegaly, no cervical lymphadenopathy, trachea midline, supple Mouth: no lip lesion, mucus membranes dry Cardiovascular: S1S2 tachycardic with grade 3 systolic ejection murmur with mid systolic click, positive posterior tibial pulse bilateral, no edema, capillary refill less than 2 seconds Lungs: Decreased breath sounds bilaterally, no rhonchi, no rales , no accessory muscle use Abdominal: soft, non tender to palpation , no guarding, no appreciable organomegaly, the bowel sounds are hypoactive and abdomen is slightly distended and the abdomen is slightly tympanic and is consistent with possibly some underlying ileus. Ext: no gross muscle atrophy, muscle strength 5 out of 5 in all 4 extremities grossly, no contractures, Neuro: CN II-XI grossly intact, light touch intact all 4 extremities, finger to nose within normal limits, Psych: Alert, oriented, appears lethargic and she is following commands and answering questions appropriately. - Labs CBC & Chem 7: 02/26/20 05:41 02/26/20 05:41 Labs: Abnormal Lab Results - Last 24 Hours (Table) 02/25/20 02/25/20 02/25/20 Range/Units 17:05 21:17 23:20 WBC (3.8-10.6) k/uL Hgb (11.4-16.0) gm/dL Hct (34.0-46.0) % Plt Count (150-450) k/uL Neutrophils # (1.3-7.7) k/uL APTT 33.5 H (22.0-30.0) sec Sodium (137-145) mmol/L POC Glucose (mg/dL) 125 H 110 H (75-99) mg/dL Calcium (8.4-10.2) mg/dL Total Bilirubin (0.2-1.3) mg/dL AST (14-36) U/L ALT (4-34) U/L Alkaline Phosphatase (38-126) U/L Total Protein (6.3-8.2) g/dL Albumin (3.5-5.0) g/dL 02/26/20 02/26/20 02/26/20 Range/Units 05:41 05:41 05:41 WBC 12.9 H (3.8-10.6) k/uL Hgb 9.9 L (11.4-16.0) gm/dL Hct 30.8 L (34.0-46.0) % Plt Count 104 L (150-450) k/uL Neutrophils # 11.1 H (1.3-7.7) k/uL APTT 38.1 H (22.0-30.0) sec Sodium 134 L (137-145) mmol/L POC Glucose (mg/dL) (75-99) mg/dL Calcium 7.8 L (8.4-10.2) mg/dL Total Bilirubin 2.0 H (0.2-1.3) mg/dL AST 57 H (14-36) U/L ALT 215 H (4-34) U/L Alkaline Phosphatase 149 H (38-126) U/L Total Protein 5.4 L (6.3-8.2) g/dL Albumin 2.7 L (3.5-5.0) g/dL 02/26/20 Range/Units 10:23 WBC (3.8-10.6) k/uL Hgb (11.4-16.0) gm/dL Hct (34.0-46.0) % Plt Count (150-450) k/uL Neutrophils # (1.3-7.7) k/uL APTT 42.7 H (22.0-30.0) sec Sodium (137-145) mmol/L POC Glucose (mg/dL) (75-99) mg/dL Calcium (8.4-10.2) mg/dL Total Bilirubin (0.2-1.3) mg/dL AST (14-36) U/L ALT (4-34) U/L Alkaline Phosphatase (38-126) U/L Total Protein (6.3-8.2) g/dL Albumin (3.5-5.0) g/dL Microbiology - Last 24 Hours (Table) 02/25/20 03:48 Gram Stain - Preliminary Sputum Sputum Culture - Preliminary 02/23/20 16:08 Blood Culture Gram Stain - Final Blood Blood Culture - Final Klebsiella pneumoniae Assessment and Plan Plan: 1 Acute gallstone pancreatitis, consider a stone in the CBD as the patient has dilation of the common bile duct. The patient was taken for an ERCP yesterday and the patient underwent a 7-German stent insertion in the common bile duct with good drainage of the bile. The procedure was successful and the patient's LFTs are improving in addition to the improvement in the amylase and lipase and bilirubin and alkaline phosphatase. The plan is to proceed with another ERCP tomorrow and subsequent cholecystectomy on Saturday by general surgery. 2 Acute cholecystitis, with possible cholangitis and the patient had a gram- negative sepsis with Klebsiella pneumonia, the patient continues to be an IV Zosyn and the patient is currently off pressors 3 Acute abdominal pain secondary to above with secondary abdominal distention, possibly component of ileus 4 Sepsis with secondary hypotension, recovered 5 Leukocytosis secondary to above, improving 6 Lactic acidosis secondary to above, improving 7 Coumadin toxicity, recovered and the patient is currently on IV heparin regarding her mechanical aortic valve 8 Congenital heart disease, post AVR (mechanical valve) 9 Hypothyroidism 10 abdominal distention secondary to above, improving 11 acute hypoxic respiratory failure secondary to above and a chest x-ray showing some atelectatic changes and small effusions bilaterally, the patient was intubated and placed on mechanical ventilation post ERCP. the patient was extubated and currently 3 liters of oxygen by nasal cannula. Chest x-ray shows small pleural effusion. 12 non-anion gap metabolic acidosis, recovered Plan Continue IV fluids with normal saline at the rate of 75 mL an hour Pressors in the weaned off and discontinued continued IV Zosyn Monitor LFTs, improving Monitor pancreatic enzymes including amylase and lipase, normalized Continue IV heparin regarding the mechanical aortic valve Dilaudid for pain control General surgeries on the case for possible cholecystectomy at a later stage, and immediate plan is to undergo a ERCP tomorrow. The plan is to undergo biliary sphincterotomy and common bile duct stone removal
--- NOTE | 2020-02-26 17:56 | P.PN ---
Subjective Progress Note Date: 02/26/20 (delayed charting seen at approx 1400) Principal diagnosis: abdominal pain Patient is a 69-year-old female with history of congenital heart disease status post mechanical aortic valve replacement 2 on Coumadin therapy, hypothyroidism, and menopausal symptoms continued on estrogen cream presented to the emergency department with complaints of abdominal pain. Patient is visiting here from [place]. In the emergency department she underwent an extensive evaluation. On arrival she was found to be tachycardic with a pulse of 117 and hypotensive with a blood pressure of 97/63. Laboratory analysis showed a lactic acid of 5.5, INR 6.3, white blood cell count 22.4, bilirubin 7.2, AST 432, ALT 530, alk Phosphatase 369, amylase 5656, and lipase of greater than 20,000. Gallbladder ultrasound showed mild hepatic duct dilatation with hydrophilic gallbladder and gallbladder wall thickening with small gallstones or dilated common bile duct. CT abdomen and pelvis showed cholecystitis with uterine mass reflecting underlying leiomyomatous changes. She was subsequently diagnosed with ascending cholangitis with sepsis. She was started on IV fluids and Zosyn. Cardiology was contacted for need for INR reversal as patient has a mechanical aortic valve, GI was contacted and plans for ERCP, surgery was contacted, and critical care was contacted. Arrangements were made for admission to the ICU. She was given vitamin K and FFP. Overnight the patient became both extensive necessitating levophed drip. Her INR had corrected to 2, upper GI 101.5 or less she was given 3 units of FFP. On the morning of 02/23 shows to be thrombocytopenic, white blood cell count had improved, INR was 2, lipase 6079, bilirubin 7.8, AST 528, ALT 568. She had a repeat CT of the abdomen and pelvis obtained which again demonstrated signs of an enlarged gallbladder consistent with cholecystitis. There was concern for ileus and she was seen by surgery and NG tube was placed. She underwent ERCP on 02/22 with placement of a CBD stent, she did develope some respiratory failure and was intubated with the procedure. She was able to be extubated by the morning of 02/23. She continued to improved Patient seen and examined at bedside. Feeling tired today, No nausea or vomiting, no diarrhea, no chest pain, no shortness of breath Objective - Vital Signs Vital signs: Vital Signs Temp 99.5 F 02/26/20 16:00 Pulse 94 02/26/20 16:00 Resp 18 02/26/20 16:00 BP 109/59 02/26/20 16:00 Pulse Ox 93 L 02/26/20 16:00 Intake & Output 02/25/20 02/26/20 02/26/20 18:59 06:59 18:59 Intake Total 6879.600 5553.564 1338.808 Output Total 825 610 540 Balance 582.566 538.564 798.808 Weight 96.7 kg 96.7 kg Intake: IV 1050 900 715 Piperacillin-Tazobactam 3 150 25 .375 gm In Sodium Chloride 0.9% 100 ml @ 25 mls/hr IVPB Q8HR [facility] Rx# :[id number] Potassium Chloride 10 meq 100 In Water For Injection 1 100ml.bag @ 100 mls/hr IVPB Q1HR NIKI Rx#: [id number] Sodium Chloride 0.9% 1, 900 900 590 000 ml @ 75 mls/hr IV . [id number] N[facility]I Rx#:[id number] Intake, IV Titration 257.566 248.564 423.808 Amount Heparin Sod,Pork in 0.45% 135.763 248.564 123.808 NaCl 25,000 unit In 0.45 % NaCl 1 250ml.bag @ 10. 62 UNITS/KG/HR 9.993 mls/ hr IV .Q24H NIKI Rx#: [id number] Norepinephrine 32 mg In 43.088 Sodium Chloride 0.9% 218 ml @ 0.13 MCG/KG/MIN 5. 734 mls/hr IV .Q24H NIKI Rx#:[id number] Piperacillin-Tazobactam 3 100 .375 gm In Sodium Chloride 0.9% 100 ml @ 25 mls/hr IVPB Q8HR NIKI Rx# :[id number] Potassium Chloride 10 meq 100 In Water For Injection 1 100ml.bag @ 100 mls/hr IVPB Q1H NIKI Rx#: [id number] Potassium Chloride 10 meq 100 In Water For Injection 1 100ml.bag @ 100 mls/hr IVPB Q1H NIKI Rx#: [id number] Propofol 1,000 mg In 78.715 Empty Bag 1 bag @ Titrate IV .Q0M NIKI Rx#: [id number] Oral 100 200 Output: Urine 825 610 540 Other: Voiding Method Indwelling Catheter Indwelling Catheter Indwelling Catheter - Exam General: Ill appearing, no distress, appears at stated age Derm: warm, dry Head: atraumatic, normocephalic, symmetric Eyes: EOMI, no lid lag, anicteric sclera Mouth: no lip lesion, mucus membranes moist Cardiovascular: S1-S2 regular with mechanical click midsystolic, positive posterior tibial pulse bilateral, Lungs: Decreased breath sounds bilateral, no rhonchi, no rales , no accessory muscle use Abdominal: soft, + tender to palpation right upper quadrant, no guarding, no appreciable organomegaly Ext: no gross muscle atrophy, 1+ edema, no contractures Neuro: CN II-XI grossly intact, no focal neuro deficits Psych: Awake, oriented, appropriate affect - Labs CBC & Chem 7: 02/26/20 05:41 02/26/20 05:41 Labs: Abnormal Lab Results - Last 24 Hours (Table) 02/25/20 02/25/20 02/26/20 Range/Units 21:17 23:20 05:41 WBC 12.9 H (3.8-10.6) k/uL Hgb 9.9 L (11.4-16.0) gm/dL Hct 30.8 L (34.0-46.0) % Plt Count 104 L (150-450) k/uL Neutrophils # 11.1 H (1.3-7.7) k/uL APTT 33.5 H (22.0-30.0) sec Sodium (137-145) mmol/L POC Glucose (mg/dL) 110 H (75-99) mg/dL Calcium (8.4-10.2) mg/dL Total Bilirubin (0.2-1.3) mg/dL AST (14-36) U/L ALT (4-34) U/L Alkaline Phosphatase (38-126) U/L Total Protein (6.3-8.2) g/dL Albumin (3.5-5.0) g/dL 02/26/20 02/26/20 02/26/20 Range/Units 05:41 05:41 10:23 WBC (3.8-10.6) k/uL Hgb (11.4-16.0) gm/dL Hct (34.0-46.0) % Plt Count (150-450) k/uL Neutrophils # (1.3-7.7) k/uL APTT 38.1 H 42.7 H (22.0-30.0) sec Sodium 134 L (137-145) mmol/L POC Glucose (mg/dL) (75-99) mg/dL Calcium 7.8 L (8.4-10.2) mg/dL Total Bilirubin 2.0 H (0.2-1.3) mg/dL AST 57 H (14-36) U/L ALT 215 H (4-34) U/L Alkaline Phosphatase 149 H (38-126) U/L Total Protein 5.4 L (6.3-8.2) g/dL Albumin 2.7 L (3.5-5.0) g/dL Microbiology - Last 24 Hours (Table) 02/25/20 03:48 Gram Stain - Preliminary Sputum Sputum Culture - Preliminary 02/23/20 16:08 Blood Culture Gram Stain - Final Blood Blood Culture - Final Klebsiella pneumoniae Assessment and Plan Assessment: Acute Cholecystitis/Cholangitis with septic shock, gallstone pancreatitis and klebsiella bacteremia, S/P CBD stent - GI consult: ERCP in AM with CBD stone removal - general surgery recs appreciated: plan for Eva this hospital admission - Zosyn - IV fluids - Clear liquids - Follow blood pressures closely Acute liver failure likely secondary to obstruction due to gallstones -Improving -GI recommendations appreciated -Liver ultrasound does show mildly heterogeneous liver Aortic valve replacement secondary to congenital heart disease -Cardiology recommendations appreciated -Echo with normally functioning mechanical aortic valve -Reversed Coumadin -Heparin drip Thrombocytopenia, improving - Follow CBC - reactive Hypothyroidism -Thyroid medication Coumadin coagulopathy with supratherapeutic INR, Mechanical aortic valve, resolved Hypomagnesemia, resolved Hyponatremia, resolved Hypokalemia, resolved Metabolic acidosis secondary to lactic acidosis, resolved Acute kidney injury versus chronic kidney disease, resolved Lactic acidosis secondary to sepsis and liver dysfunction, resolved CODE STATUS: Full DVT prophylaxis: Supratherapeutic INR Discussed with: Patient, nursing, Dr. Astorga Anticipated discharge date: 4-[address]: Home A total of 45 minutes was spent on the care of this complex patient more than 50% of the time was spent in counseling and care coordination.
[2020-02-26 18:46] LABS: Glucose,Whole Blood 98 mg/dL (75-99)
[2020-02-26 20:36] LABS: Glucose,Whole Blood 100 mg/dL (75-99)
[2020-02-27] MEDS: PIPERACILLIN-TAZOBACTAM 3.375 GM in SODIUM CHLORIDE 0.9% 100 ML IVPB SCH ×3 (00:10→18:08)
[2020-02-27] MEDS: HYDROmorphone 1 MG/ML 1 ML SYRINGE IVP PRN ×4 (00:10→18:46)
[2020-02-27] MEDS: HEPARIN SOD,PORK IN 0.45% NACL 25,000 UNIT in 0.45% NACL 1 250ML.BAG IV SCH ×2 (02:56→19:00)
[2020-02-27] MEDS: ONDANSETRON 4 MG/2 ML VIAL IVP PRN (04:22)
[2020-02-27] MEDS: NOREPINEPHRINE 32 MG in SODIUM CHLORIDE 0.9% 218 ML IV SCH (04:28)
[2020-02-27] MEDS: SODIUM CHLORIDE 0.9% 1,000 ML IV SCH ×2 (04:28→18:09)
[2020-02-27 06:10] LABS: Basophils % (A) 0 %; Eosinophils # (A) 0.3 k/uL (0-0.7); Eosinophils % (A) 2 %; HCT 31.2 % (34.0-46.0); HGB 10.1 gm/dL (11.4-16.0); Hypochromasia Slight; Lymphocytes # (A) 1.1 k/uL (1.0-4.8); Lymphocytes % (A) 7 %; MCH 25.5 pg (25.0-35.0); MCHC 32.2 g/dL (31.0-37.0); MCV 79.1 fL (80.0-100.0); Mean Platelet Volume 8.5; Monocytes # (A) 0.5 k/uL (0-1.0); Monocytes % (A) 3 %; Neutrophils # (A) 13.2 k/uL (1.3-7.7); Neutrophils % (A) 86 %; Platelet Count 141 k/uL (150-450); RBC 3.95 m/uL (3.80-5.40); WBC 15.4 k/uL (3.8-10.6)
[2020-02-27] MEDS ORDERED: INDOMETHACIN 50MG SUPPOSITORY RECTAL ONE (06:30)
--- NOTE | 2020-02-27 06:48 | XR ---
EXAMINATION TYPE: XR chest 1V portable DATE OF EXAM: 02/27/2020 HISTORY: Tube placement. REFERENCE: Previous study dated 02/26/2020. FINDINGS: There has been a midline sternotomy. There is bibasilar airspace disease. There are small, bilateral effusions. Heart size upper limits of normal. IMPRESSION: NO SIGNIFICANT INTERVAL CHANGE IN THE APPEARANCE OF THE CHEST.
[2020-02-27 06:56] LABS: Glucose,Whole Blood 89 mg/dL (75-99)
[2020-02-27 07:05] LABS: ALT 141 U/L (4-34); AST 43 U/L (14-36); African American GFR (CKD) >90 (>60 ml/min/1.73 sqM); Albumin 2.5 g/dL (3.5-5.0); Alkaline Phosphatase 130 U/L (38-126); Anion Gap 4 mmol/L; Blood Urea Nitrogen 12 mg/dL (7-17); Calcium 7.5 mg/dL (8.4-10.2); Carbon Dioxide 25 mmol/L (22-30); Chloride 105 mmol/L (98-107); Glucose 87 mg/dL (74-99); Non-African American GFR(CKD) >90 (>60 ml/min/1.73 sqM); Potassium 3.5 mmol/L (3.5-5.1); Sodium 134 mmol/L (137-145); Total Bilirubin 1.6 mg/dL (0.2-1.3); Total Protein 5.2 g/dL (6.3-8.2)
[2020-02-27] MEDS: IPRATROPIUM-ALBUTEROL 3 ML NEB INHALATION SCH ×4 (08:00→19:38)
--- NOTE | 2020-02-27 08:26 | P.PN ---
Subjective Progress Note Date: 02/27/20 Principal diagnosis: abdominal pain Patient is a 69-year-old female with history of congenital heart disease status post mechanical aortic valve replacement 2 on Coumadin therapy, hypothyroidism, and menopausal symptoms continued on estrogen cream presented to the emergency department with complaints of abdominal pain. Patient is visiting here from [place]. In the emergency department she underwent an extensive evaluation. On arrival she was found to be tachycardic with a pulse of 117 and hypotensive with a blood pressure of 97/63. Laboratory analysis showed a lactic acid of 5.5, INR 6.3, white blood cell count 22.4, bilirubin 7.2, AST 432, ALT 530, alk Phosphatase 369, amylase 5656, and lipase of greater than 20,000. Gallbladder ultrasound showed mild hepatic duct dilatation with hydrophilic gallbladder and gallbladder wall thickening with small gallstones or dilated common bile duct. CT abdomen and pelvis showed cholecystitis with uterine mass reflecting underlying leiomyomatous changes. She was subsequently diagnosed with ascending cholangitis with sepsis. She was started on IV fluids and Zosyn. Cardiology was contacted for need for INR reversal as patient has a mechanical aortic valve, GI was contacted and plans for ERCP, surgery was contacted, and critical care was contacted. Arrangements were made for admission to the ICU. She was given vitamin K and FFP. Overnight the patient became both extensive necessitating levophed drip. Her INR had corrected to 2, upper GI 101.5 or less she was given 3 units of FFP. On the morning of 02/23 shows to be thrombocytopenic, white blood cell count had improved, INR was 2, lipase 6079, b ilirubin 7.8, AST 528, ALT 568. She had a repeat CT of the abdomen and pelvis obtained which again demonstrated signs of an enlarged gallbladder consistent with cholecystitis. There was concern for ileus and she was seen by surgery and NG tube was placed. She underwent ERCP on 02/22 with placement of a CBD stent, she did develop some respiratory failure and was intubated with the procedure. She was able to be extubated by the morning of 02/23. She continued to improve. Patient seen and examined at bedside. Feeling frustrated that procedure was delayed due to heparin gtt. No nausea, no vomiting, no diarrhea, no shortness of breath. Feeling hungry. Still no BM Objective - Vital Signs Vital signs: Vital Signs Temp 98.4 F 02/27/20 08:00 Pulse 84 02/27/20 08:11 Resp 16 02/27/20 08:00 BP 108/66 02/27/20 08:00 Pulse Ox 95 02/27/20 08:00 Intake & Output 02/26/20 02/27/20 02/27/20 18:59 06:59 18:59 Intake Total 6785.242 3719.618 150 Output Total 645 685 90 Balance 861.343 862.618 60 Weight 96.7 kg 99.8 kg Intake: IV 800 835 150 Piperacillin-Tazobactam 3 25 .375 gm In Sodium Chloride 0.9% 100 ml @ 25 mls/hr IVPB Q8HR NIKI Rx# :[id number] Potassium Chloride 10 meq 100 In Water For Injection 1 100ml.bag @ 100 mls/hr IVPB Q1HR NIKI Rx#: [id number] Sodium Chloride 0.9% 1, 675 835 150 000 ml @ 75 mls/hr IV . [id number] NIKI Rx#:[id number] Intake, IV Titration 506.343 312.618 Amount Heparin Sod,Pork in 0.45% 206.343 312.618 NaCl 25,000 unit In 0.45 % NaCl 1 250ml.bag @ 10. 62 UNITS/KG/HR 9.993 mls/ hr IV .Q24H NIKI Rx#: [id number] Piperacillin-Tazobactam 3 100 .375 gm In Sodium Chloride 0.9% 100 ml @ 25 mls/hr IVPB Q8HR NIKI Rx# :[id number] Potassium Chloride 10 meq 100 In Water For Injection 1 100ml.bag @ 100 mls/hr IVPB Q1H NIKI Rx#: [id number] Potassium Chloride 10 meq 100 In Water For Injection 1 100ml.bag @ 100 mls/hr IVPB Q1H NIKI Rx#: [id number] Oral 200 400 Output: Urine 645 685 90 Other: Voiding Method Indwelling Catheter Indwelling Catheter Indwelling Catheter - Exam General: Ill appearing, no distress, appears at stated age Derm: warm, dry Head: atraumatic, normocephalic, symmetric Eyes: EOMI, no lid lag, anicteric sclera Mouth: no lip lesion, mucus membranes moist Cardiovascular: S1-S2 regular with mechanical click mid systolic, positive posterior tibial pulse bilateral, Lungs: Decreased breath sounds bilateral, no rhonchi, no rales , no accessory muscle use Abdominal: soft, + tender to palpation right upper quadrant, no guarding, no appreciable organomegaly Ext: no gross muscle atrophy, 1+ edema, no contractures Neuro: CN II-XI grossly intact, no focal neuro deficits Psych: Awake, oriented, appropriate affect - Labs CBC & Chem 7: 02/27/20 05:55 02/27/20 05:55 Labs: Abnormal Lab Results - Last 24 Hours (Table) 02/26/20 02/26/20 02/26/20 Range/Units 10:23 17:43 20:08 WBC (3.8-10.6) k/uL Hgb (11.4-16.0) gm/dL Hct (34.0-46.0) % MCV (80.0-100.0) fL Plt Count (150-450) k/uL Neutrophils # (1.3-7.7) k/uL APTT 42.7 H 33.3 H (22.0-30.0) sec Sodium (137-145) mmol/L Creatinine (0.52-1.04) mg/dL POC Glucose (mg/dL) 100 H (75-99) mg/dL Calcium (8.4-10.2) mg/dL Total Bilirubin (0.2-1.3) mg/dL AST (14-36) U/L ALT (4-34) U/L Alkaline Phosphatase (38-126) U/L Total Protein (6.3-8.2) g/dL Albumin (3.5-5.0) g/dL 02/27/20 02/27/20 02/27/20 Range/Units 00:43 05:55 05:55 WBC 15.4 H (3.8-10.6) k/uL Hgb 10.1 L (11.4-16.0) gm/dL Hct 31.2 L (34.0-46.0) % MCV 79.1 L (80.0-100.0) fL Plt Count 141 L (150-450) k/uL Neutrophils # 13.2 H (1.3-7.7) k/uL APTT 43.9 H (22.0-30.0) sec Sodium 134 L (137-145) mmol/L Creatinine 0.41 L (0.52-1.04) mg/dL POC Glucose (mg/dL) (75-99) mg/dL Calcium 7.5 L (8.4-10.2) mg/dL Total Bilirubin 1.6 H (0.2-1.3) mg/dL AST 43 H (14-36) U/L ALT 141 H (4-34) U/L Alkaline Phosphatase 130 H (38-126) U/L Total Protein 5.2 L (6.3-8.2) g/dL Albumin 2.5 L (3.5-5.0) g/dL 02/27/20 Range/Units 05:55 WBC (3.8-10.6) k/uL Hgb (11.4-16.0) gm/dL Hct (34.0-46.0) % MCV (80.0-100.0) fL Plt Count (150-450) k/uL Neutrophils # (1.3-7.7) k/uL APTT 50.8 H (22.0-30.0) sec Sodium (137-145) mmol/L Creatinine (0.52-1.04) mg/dL POC Glucose (mg/dL) (75-99) mg/dL Calcium (8.4-10.2) mg/dL Total Bilirubin (0.2-1.3) mg/dL AST (14-36) U/L ALT (4-34) U/L Alkaline Phosphatase (38-126) U/L Total Protein (6.3-8.2) g/dL Albumin (3.5-5.0) g/dL Microbiology - Last 24 Hours (Table) 02/25/20 03:48 Gram Stain - Preliminary Sputum Sputum Culture - Preliminary 02/23/20 16:08 Blood Culture Gram Stain - Final Blood Blood Culture - Final Klebsiella pneumoniae Assessment and Plan Assessment: Acute Cholecystitis/Cholangitis with septic shock, gallstone pancreatitis and klebsiella bacteremia, S/P CBD stent - GI consult: ERCP in AM with CBD stone removal (delay X 1) - general surgery recs appreciated: plan for Eva this hospital admission - Zosyn - IV fluids - Clear liquids - Follow blood pressures closely - repeat blood cultures due to mechanical heart valve to ensure clearance Acute liver failure likely secondary to obstruction due to gallstones -Improving -GI recommendations appreciated -Liver ultrasound does show mildly heterogeneous liver Possible ieus - patient with NGT earlier this stay - No DM since 02/21 - start miralax - full liquid diet Aortic valve replacement secondary to congenital heart disease -Cardiology recommendations appreciated -Echo with normally functioning mechanical aortic valve -Reversed Coumadin -Heparin drip Thrombocytopenia, improving - Follow CBC - reactive Hypothyroidism -Thyroid medication Coumadin coagulopathy with supratherapeutic INR, Mechanical aortic valve, resolved Hypomagnesemia, resolved Hyponatremia, resolved Hypokalemia, resolved Metabolic acidosis secondary to lactic acidosis, resolved Acute kidney injury versus chronic kidney disease, resolved Lactic acidosis secondary to sepsis and liver dysfunction, resolved CODE STATUS: Full DVT prophylaxis: Supratherapeutic INR Discussed with: Patient, nursing, Anticipated discharge date: 4-[address]: Home A total of 35 minutes was spent on the care of this complex patient more than 50% of the time was spent in counseling and care coordination.
[2020-02-27] MEDS: POTASSIUM CHLORIDE 20 MEQ in WATER FOR INJECTION 1 100ML.BAG IVPB SCH ×3 (08:43→21:41)
[2020-02-27] MEDS: PANTOPRAZOLE 40 MG/10 ML VIAL IV SCH (08:44)
[2020-02-27] MEDS: THYROID, PORK 30 MG TAB PO SCH (08:50)
[2020-02-27] MEDS: POLYETHYLENE GLYCOL 3350 17 GM POWD.PACK PO SCH (08:50)
[2020-02-27] MEDS ORDERED: FUROSEMIDE 10 MG/ML 4 ML VIAL IV STA (09:20)
--- NOTE | 2020-02-27 11:05 | PN ---
PROGRESS NOTE Ibis is a 69-year-old lady who is admitted to hospital with ascending cholangitis and has a mechanical aortic valve. She underwent ERCP with stent placement and needs another ERCP. Hopefully this will be done tomorrow. It could not be done today because the nurse caring for the patient did not stop the heparin. EXAM: Comfortable at rest. Vital signs are stable. There is no jugular venous distention. Chest exam reveals good air entry bilaterally. Heart exam reveals first and second heart sounds. Mechanical valve sound is heard. Abdomen is soft. Exam of extremities did not reveal any edema. Peripheral pulses are felt. Lab show a potassium of 3.5, creatinine is 0.4. White cell count is 15, platelet count is 140. ASSESSMENT: 1. Status post mechanical aortic valve. 2. Ascending cholangitis. PLAN: Patient will continue current medications. Heparin will be held early tomorrow morning for her to have the ERCP. MMODL / IJN: [id number] /
--- NOTE | 2020-02-27 11:36 | P.PN ---
Progress Note - Text Progress Note Date: 02/27/20 Patient feels better. She is awaiting ERCP tomorrow. On exam her vital signs are stable. Abdomen soft. Liver functions improved. Resolving gallstone hepatitis. Patient will undergo ERCP tomorrow with stone extraction and stent sphincterotomy. We plan for laparoscopic cholecystectomy in Saturday
[2020-02-27 11:42] LABS: Glucose,Whole Blood 87 mg/dL (75-99)
--- NOTE | 2020-02-27 13:08 | PN ---
PROGRESS NOTE DATE OF SERVICE: 02/27/2020 Patient is a 69-year-old pleasant white female admitted to hospital with ascending cholangitis and gram-negative bacteremia, underwent an ERCP two days ago with CBD stent placement. She was noted to have CBD stones. She remains in the ICU, doing much better with abdominal pain. She still has some epigastric pain. Overall, much better. On a clear liquid diet, tolerating well. PHYSICAL EXAMINATION: Appears comfortable, no apparent distress. VITAL SIGNS: Stable. Blood pressure is 119/66, pulse rate 87, temperature 98. HEENT examination unremarkable. Conjunctivae pink, sclerae anicteric. Oral cavity no lesions. NECK: No JVD or lymph node enlargement. CHEST: Clear to auscultation. HEART: Regular rate and rhythm. ABDOMEN: Soft. Mild tenderness in the right upper quadrant. Slightly distended. EXTREMITIES: No pedal edema. NEUROLOGIC: Alert and oriented x3. No focal deficits. LABS: From today WBC 15.4, hemoglobin 10.1, platelets 141. Bilirubin 1.6, AST 43, ALT 141, alkaline phosphatase 130. IMPRESSION: 1. Gram-negative bacteremia secondary to ascending cholangitis, on broad-spectrum antibiotics doing well status post ERCP with CBD stent placement 2 days ago. 2. Acute gallstone pancreatitis, resolved. 3. History of prosthetic heart failure, on IV heparin. RECOMMENDATION: 1. The patient will be rescheduled for an ERCP tomorrow for biliary sphincterotomy and CBD stone extraction. 2. Continue broad-spectrum antibiotics. 3. Discussed with the nursing staff to hold the heparin six hours prior to the procedure tomorrow morning. 4. Repeat labs in the morning. We will follow with you closely. Thank you for this consultation. MMODL / IJN: [id number] /
--- NOTE | 2020-02-27 13:36 | P.PN ---
Subjective Progress Note Date: 02/27/20 On today's evaluation of 02/25/2020 the patient is post ERCP and the procedure was successful and there is been improvement in the patient's amylase and lipase and LFTs and the bilirubin level. The abdomen is less tense and tender and distended compared to yesterday. Bowel sounds remain hypoactive. The patient remains on IV Zosyn regarding a klebsiella pneumonia sepsis as the area was cultured in the blood. This morning, the patient is afebrile. The patient has hemodynamically improved on normal saline at the rate of 75 mL's an hour and the patient is currently on Lasix pressors which is running in the order of 0.1 g per KG per minute. Nevertheless this was being weaned off. NG tube has produced around 250 mL over the past 12 hours. The patient meanwhile is on a mechanical ventilator on assist control mode with tidal volume of 450, FiO2 of 40% with a PEEP of 5 and a rate of 16. The patient was given a sedation holiday and she woke up nicely and she was very much appropriate. At that point when he parameters were checked and the patient is rapid shallow breathing index of 45. She was given a CPAP trial with upper support of 5 and PEEP of 5 and after tolerating this for around 30 minutes the patient was extubated to nasal cannula. She remains on IV heparin regarding a mechanical aortic valve. No other significant events otherwise for now. The patient is awake and alert and she is following commands. Her white cell count is down to 17.1.her creatinine is at 0.7. He'll bilirubin is down to 2.8. AST is down to 139, ALT is down to 321, and alkaline phosphatase is down to 204. The platelet count is still low at 88 On today's evaluation of 02/26/2020, the patient is still recovering from her septic shock that was related to cholecystitis, cholangitis and gallstone pancreatitis pH is post ERCP. Her liver function tests continued to improve. Her bilirubin and ALT and AST are steadily declining. Nevertheless, the patient seems to be needing another ERCP that will be done tomorrow. Following that, the patient will need a cholecystectomy which is being planned for Saturday of next week. The patient is on no pressors. The patient is receiving IV fluids w ith normal saline at the rate of 75 mL an hour. She was taken off the norepinephrine infusion. She remains on IV heparin regarding her mechanical aortic valve and the patient is going to maintain a therapeutic PTT. No cervical nausea or vomiting. Abdomen is slightly distended and there may be a component of ileus as on today's evaluation, the patient has some tympany. The blood culture was positive for Klebsiella. She remains on IV Zosyn. She was extubated yesterday. The chest exit showing small bilateral pleural effusions. No signs of any significant fluid overload. The white cell count is at 12. Electrolytes are all within normal limits. The patient's bilirubin is down to 2.0. AST is down to 57. ALT is down to 215 and alkaline phosphatase is down to 149. Lipase is also normalized and is down to 127. On 02/27/2020 and seeing the patient for a follow-up. Doing well. She was supposed to have an ERCP done today, however, the procedure was not performed as the patient was still on IV heparin this morning and this Was postponed until tomorrow. IV heparin will be stopped 2 hours prior to the procedure. The ultimate plan is to do cholecystectomy on Saturday. She is doing well. No abdominal tenderness. Bilirubin and the rest of the liver function tests are still improving and amylase and lipase have normalized. Abdomen remains slightly distended and tympanic. She is having regular bowel moments. No fever. No chills she is gotten weak and quite debilitated following the septic event and the patient has A Pneumonia and Her Blood and Currently She Still IV Zosyn. On Her Chest X-Ray, There Is Development of Small Bilateral Pleural Effusions. I am suggesting to kept on IV fluids to 40 mL an hour and I'm going to give her a dose of diuretics to optimize her fluid balance. No issues with pain or cardiac arrhythmias for now. Objective - Vital Signs Vital signs: Vital Signs Temp 98.4 F 02/27/20 08:00 Pulse 94 02/27/20 11:37 Resp 20 02/27/20 10:00 BP 119/66 02/27/20 10:00 Pulse Ox 95 02/27/20 10:00 Intake & Output 02/26/20 02/27/20 02/27/20 18:59 06:59 18:59 Intake Total 3568.721 0901.618 265 Output Total 645 685 150 Balance 861.343 862.618 115 Weight 96.7 kg 99.8 kg Intake: IV 800 835 265 Piperacillin-Tazobactam 3 25 .375 gm In Sodium Chloride 0.9% 100 ml @ 25 mls/hr IVPB Q8HR [facility]I Rx# :[id number] Potassium Chloride 10 meq 100 In Water For Injection 1 100ml.bag @ 100 mls/hr IVPB Q1HR NIKI Rx#: [id number] Sodium Chloride 0.9% 1, 675 835 265 000 ml @ 40 mls/hr IV . Q24H [facility]I Rx#:[id number] Intake, IV Titration 506.343 312.618 Amount Heparin Sod,Pork in 0.45% 206.343 312.618 NaCl 25,000 unit In 0.45 % NaCl 1 250ml.bag @ 10. 62 UNITS/KG/HR 9.993 mls/ hr IV .Q24H NIKI Rx#: [id number] Piperacillin-Tazobactam 3 100 .375 gm In Sodium Chloride 0.9% 100 ml @ 25 mls/hr IVPB Q8HR NIKI Rx# :[id number] Potassium Chloride 10 meq 100 In Water For Injection 1 100ml.bag @ 100 mls/hr IVPB Q1H NIKI Rx#: [id number] Potassium Chloride 10 meq 100 In Water For Injection 1 100ml.bag @ 100 mls/hr IVPB Q1H NIKI Rx#: [id number] Oral 200 400 Output: Urine 645 685 150 Other: Voiding Method Indwelling Catheter Indwelling Catheter Indwelling Catheter - Exam General: , Comfortable, currently on 3 L of oxygen by nasal cannula with a pulse ox of 94% Derm: no unusual rashes/lesions no unusual ecchymoses, warm, dry Head: atraumatic, normocephalic, symmetric Eyes: EOMI, no lid lag, anicteric sclera, pupils equal round reactive to light ENT: Nose and ears atraumatic, no thrush, no pharyngeal erythema Neck: No thyromegaly, no cervical lymphadenopathy, trachea midline, supple Mouth: no lip lesion, mucus membranes dry Cardiovascular: S1S2 tachycardic with grade 3 systolic ejection murmur with mid systolic click, positive posterior tibial pulse bilateral, no edema, capillary refill less than 2 seconds Lungs: Decreased breath sounds bilaterally, no rhonchi, no rales , no accessory muscle use Abdominal: soft, non tender to palpation , no guarding, no appreciable organomegaly, the bowel sounds are hypoactive and abdomen is slightly distended and the abdomen is slightly tympanic and is consistent with possibly some underlying ileus. Ext: no gross muscle atrophy, muscle strength 5 out of 5 in all 4 extremities g rossly, no contractures, Neuro: CN II-XI grossly intact, light touch intact all 4 extremities, finger to nose within normal limits, and the patient is globally weak. Psych: Alert, oriented, appears lethargic and she is following commands and answering questions appropriately. - Labs CBC & Chem 7: 02/27/20 05:55 02/27/20 05:55 Labs: Abnormal Lab Results - Last 24 Hours (Table) 02/26/20 02/26/20 02/27/20 Range/Units 17:43 20:08 00:43 WBC (3.8-10.6) k/uL Hgb (11.4-16.0) gm/dL Hct (34.0-46.0) % MCV (80.0-100.0) fL Plt Count (150-450) k/uL Neutrophils # (1.3-7.7) k/uL APTT 33.3 H 43.9 H (22.0-30.0) sec Sodium (137-145) mmol/L Creatinine (0.52-1.04) mg/dL POC Glucose (mg/dL) 100 H (75-99) mg/dL Calcium (8.4-10.2) mg/dL Total Bilirubin (0.2-1.3) mg/dL AST (14-36) U/L ALT (4-34) U/L Alkaline Phosphatase (38-126) U/L Total Protein (6.3-8.2) g/dL Albumin (3.5-5.0) g/dL 02/27/20 02/27/20 02/27/20 Range/Units 05:55 05:55 05:55 WBC 15.4 H (3.8-10.6) k/uL Hgb 10.1 L (11.4-16.0) gm/dL Hct 31.2 L (34.0-46.0) % MCV 79.1 L (80.0-100.0) fL Plt Count 141 L (150-450) k/uL Neutrophils # 13.2 H (1.3-7.7) k/uL APTT 50.8 H (22.0-30.0) sec Sodium 134 L (137-145) mmol/L Creatinine 0.41 L (0.52-1.04) mg/dL POC Glucose (mg/dL) (75-99) mg/dL Calcium 7.5 L (8.4-10.2) mg/dL Total Bilirubin 1.6 H (0.2-1.3) mg/dL AST 43 H (14-36) U/L ALT 141 H (4-34) U/L Alkaline Phosphatase 130 H (38-126) U/L Total Protein 5.2 L (6.3-8.2) g/dL Albumin 2.5 L (3.5-5.0) g/dL Microbiology - Last 24 Hours (Table) 02/25/20 03:48 Gram Stain - Final Sputum Sputum Culture - Final Assessment and Plan Plan: 1 Acute gallstone pancreatitis, consider a stone in the CBD as the patient has dilation of the common bile duct. The patient bilirubin and the rest of the liver function tests are improving. Amylase lipase have normalized. The ultimate plan is to repeat ERCP tomorrow with subsequent cholecystectomy on Saturday. 2 Acute cholecystitis, with possible cholangitis and the patient had a gram- negative sepsis with Klebsiella pneumonia, the patient continues to be an IV Zosyn and the patient is currently off pressors 3 Acute abdominal pain secondary to above with secondary abdominal distention, possibly component of ileus 4 Sepsis with secondary hypotension, recovered 5 Leukocytosis secondary to above, improving 6 Lactic acidosis secondary to above, improving 7 Coumadin toxicity, recovered and the patient is currently on IV heparin regarding her mechanical aortic valve 8 Congenital heart disease, post AVR (mechanical valve) 9 Hypothyroidism 10 abdominal distention secondary to above, improving 11 acute hypoxic respiratory failure secondary to above and a chest x-ray showing some atelectatic changes and small effusions bilaterally, the patient was intubated and placed on mechanical ventilation post ERCP. the patient was extubated and currently 3 liters of oxygen by nasal cannula. Chest x-ray shows small pleural effusion. 12 non-anion gap metabolic acidosis, recovered Plan Continue IV fluids and cut down the IV fluids to 40 mL an hour Lasix 40 mg IV push continued IV Zosyn Monitor LFTs, improving amylase and lipase, normalized Continue IV heparin regarding the mechanical aortic valve Dilaudid for pain control General surgeries on the case for possible cholecystectomy at a later stage, and immediate plan is to undergo a ERCP tomorrow. The plan is to undergo biliary sphincterotomy and common bile duct stone removal
[2020-02-27 17:43] LABS: Glucose,Whole Blood 131 mg/dL (75-99)
[2020-02-27 21:53] LABS: Glucose,Whole Blood 155 mg/dL (75-99)
[2020-02-28] MEDS: POTASSIUM CHLORIDE 20 MEQ in WATER FOR INJECTION 1 100ML.BAG IVPB SCH ×6 (00:14→17:36)
[2020-02-28] MEDS: PIPERACILLIN-TAZOBACTAM 3.375 GM in SODIUM CHLORIDE 0.9% 100 ML IVPB SCH ×4 (00:30→23:59)
[2020-02-28] MEDS: HYDROmorphone 1 MG/ML 1 ML SYRINGE IVP PRN ×3 (00:30→20:47)
[2020-02-28] MEDS: ONDANSETRON 4 MG/2 ML VIAL IVP PRN (00:33)
[2020-02-28] MEDS: NOREPINEPHRINE 32 MG in SODIUM CHLORIDE 0.9% 218 ML IV SCH (05:29)
[2020-02-28 06:23] LABS: HCT 31.6 % (34.0-46.0); HGB 10.4 gm/dL (11.4-16.0); MCH 25.6 pg (25.0-35.0); MCV 77.6 fL (80.0-100.0); Mean Platelet Volume 8.5; Platelet Count 158 k/uL (150-450); RBC 4.07 m/uL (3.80-5.40); RDW 14.9 % (11.5-15.5); WBC 14.5 k/uL (3.8-10.6)
[2020-02-28] MEDS ORDERED: INDOMETHACIN 50MG SUPPOSITORY RECTAL ONE (06:30)
[2020-02-28 06:41] LABS: ALT 99 U/L (4-34); AST 27 U/L (14-36); African American GFR (CKD) >90 (>60 ml/min/1.73 sqM); Albumin 2.5 g/dL (3.5-5.0); Alkaline Phosphatase 125 U/L (38-126); Anion Gap 4 mmol/L; Blood Urea Nitrogen 11 mg/dL (7-17); Calcium 7.8 mg/dL (8.4-10.2); Carbon Dioxide 29 mmol/L (22-30); Chloride 101 mmol/L (98-107); Glucose 102 mg/dL (74-99); Magnesium 1.5 mg/dL (1.6-2.3); Non-African American GFR(CKD) >90 (>60 ml/min/1.73 sqM); Potassium 3.5 mmol/L (3.5-5.1); Sodium 134 mmol/L (137-145); Total Bilirubin 1.4 mg/dL (0.2-1.3); Total Protein 5.2 g/dL (6.3-8.2)
[2020-02-28 06:43] LABS: Prothrombin Time 10.7 sec (9.0-12.0)
[2020-02-28 07:21] LABS: Partial Thromboplastin Time 21.8 sec (22.0-30.0)
[2020-02-28 07:26] LABS: Glucose,Whole Blood 114 mg/dL (75-99)
[2020-02-28] MEDS: PANTOPRAZOLE 40 MG/10 ML VIAL IV SCH (07:51)
[2020-02-28] MEDS: IPRATROPIUM-ALBUTEROL 3 ML NEB INHALATION SCH ×4 (07:53→21:01)
[2020-02-28] MEDS ORDERED: SODIUM CHLORIDE 0.9% 500 ML 500 ML IV ONE ×2 (08:39)
[2020-02-28] MEDS ORDERED: SUCCINYLCHOLINE CHLORIDE 100 MG/5 ML SYR IV ONE (08:41)
[2020-02-28] MEDS ORDERED: PROPOFOL 10 MG/ML 20 ML VIAL IV ONE (08:41)
[2020-02-28] MEDS ORDERED: PHENYLEPHRINE-0.9% NACL SYG 1 MG/10 ML SYRINGE ONE (08:41)
--- NOTE | 2020-02-28 09:17 | P.PN ---
Progress Note - Text Progress Note Date: 02/28/20 Patient is undergoing ERCP this morning. She'll be scheduled for laparoscopic cholecystectomy in a.m.
[2020-02-28] MEDS ORDERED: IOPAMIDOL-300 50ML BTL INJ ONE (09:18)
--- NOTE | 2020-02-28 09:25 | P.PCN ---
Date of Procedure: 02/28/20 Procedure(s) Performed: Brief history: Patient is a 69 year-old pleasant lady scheduled for an ERCP as part of evaluation of choledocholithiasis. She was admitted hospital 5 days ago with severe acute gallstone pancreatitis/ascending cholangitis and gram-negative bacteremia. She underwent an emergent ERCP 3 years ago and CBD stent was placed. The ERCP revealed a 5 mm filling defect in the distal common bile duct. Patient the meantime remains in Buhl recommended by Andrey and overall clinical condition has significantly improved. LFTs continue to improve. She had history of prostatic heart valve and wasn't Coumadin which is currently on hold and is on IV heparin. She is scheduled for an ERCP for CBC stomach traction. Procedure performed: ERCP with CBD stent removal/biliary sphincterotomy and balloon stone extraction Preoperative diagnoses: Ascending cholangitis/sepsis/choledocholithiasis IV sedation per anesthesia: Procedure: After informed consent was obtained from the patient and after the risks benefits and complications including bleeding perforation and pancreatitis explained in detail the patient was brought into the endoscopy unit. The patient was placed in prone position and IV conscious sedation was administered by anesthesia under continuous monitoring. The Olympus side-viewing duodenoscope was then inserted into the mouth and esophagus intubated without any difficulty. The scope was gradually advanced into the stomach and duodenum. The major papilla was identified without any difficulty. The previously placed stent was removed. Following this using a sphincterotome the common bile duct was cannulated with a guidewire and upon injection of the dye the CBD appeared dilated measuring once intermittent size with a 5 mm feeding defect in the distal common bile duct. There was no intra-or extrahepatic bleeding ductal dilation seen. The cystic duct was patent. At this time the bili recent enterotomy was performed at 12 o'clock position over the guidewire and was extended to 1 cm. Following this an 11 mm balloon was passed over the guidewire into the proximal CBD and gently inflated and gradually withdrawn. A small stone was seen exiting the ampulla. This maneuver was repeated several times and an occlusion cholangiogram was performed which revealed no more filling defects. At this time the procedure was terminated and the patient tolerated the procedure well. The pancreatic duct was intentionally not cannulated. Impression CBD stent removal Dilated common bile duct with a 5 mm filling defect in the distal common bile duct status post sphincterotomy and balloon stone extraction Pancreatic duct intentionally not cannulated. Recommendations: The findings of this examination were discussed with the patient as well as a family. She will be started on clear liquids today. Monitor labs closely. Continue Buhl and antibiotics. Resume heparin in 2 hours. Repeat labs in the morning.
--- NOTE | 2020-02-28 09:45 | FL ---
FLUOROSCOPY 5 minutes and 1 second of fluoroscopy time were utilized during ERCP. 3 images document the procedure .
[2020-02-28] MEDS: POLYETHYLENE GLYCOL 3350 17 GM POWD.PACK PO SCH (09:56)
[2020-02-28] MEDS: THYROID, PORK 30 MG TAB PO SCH (09:56)
--- NOTE | 2020-02-28 11:11 | P.PN ---
Subjective Progress Note Date: 02/28/20 On today's evaluation of 02/25/2020 the patient is post ERCP and the procedure was successful and there is been improvement in the patient's amylase and lipase and LFTs and the bilirubin level. The abdomen is less tense and tender and distended compared to yesterday. Bowel sounds remain hypoactive. The patient remains on IV Zosyn regarding a klebsiella pneumonia sepsis as the area was cultured in the blood. This morning, the patient is afebrile. The patient has hemodynamically improved on normal saline at the rate of 75 mL's an hour and the patient is currently on Lasix pressors which is running in the order of 0.1 g per KG per minute. Nevertheless this was being weaned off. NG tube has produced around 250 mL over the past 12 hours. The patient meanwhile is on a mechanical ventilator on assist control mode with tidal volume of 450, FiO2 of 40% with a PEEP of 5 and a rate of 16. The patient was given a sedation holiday and she woke up nicely and she was very much appropriate. At that point when he parameters were checked and the patient is rapid shallow breathing index of 45. She was given a CPAP trial with upper support of 5 and PEEP of 5 and after tolerating this for around 30 minutes the patient was extubated to nasal cannula. She remains on IV heparin regarding a mechanical aortic valve. No other significant events otherwise for now. The patient is awake and alert and she is following commands. Her white cell count is down to 17.1.her creatinine is at 0.7. He'll bilirubin is down to 2.8. AST is down to 139, ALT is down to 321, and alkaline phosphatase is down to 204. The platelet count is still low at 88 On today's evaluation of 02/26/2020, the patient is still recovering from her septic shock that was related to cholecystitis, cholangitis and gallstone pancreatitis pH is post ERCP. Her liver function tests continued to improve. Her bilirubin and ALT and AST are steadily declining. Nevertheless, the patient seems to be needing another ERCP that will be done tomorrow. Following that, the patient will need a cholecystectomy which is being planned for Saturday of next week. The patient is on no pressors. The patient is receiving IV fluids w ith normal saline at the rate of 75 mL an hour. She was taken off the norepinephrine infusion. She remains on IV heparin regarding her mechanical aortic valve and the patient is going to maintain a therapeutic PTT. No cervical nausea or vomiting. Abdomen is slightly distended and there may be a component of ileus as on today's evaluation, the patient has some tympany. The blood culture was positive for Klebsiella. She remains on IV Zosyn. She was extubated yesterday. The chest exit showing small bilateral pleural effusions. No signs of any significant fluid overload. The white cell count is at 12. Electrolytes are all within normal limits. The patient's bilirubin is down to 2.0. AST is down to 57. ALT is down to 215 and alkaline phosphatase is down to 149. Lipase is also normalized and is down to 127. On 02/27/2020 and seeing the patient for a follow-up. Doing well. She was supposed to have an ERCP done today, however, the procedure was not performed as the patient was still on IV heparin this morning and this Was postponed until tomorrow. IV heparin will be stopped 2 hours prior to the procedure. The ultimate plan is to do cholecystectomy on Saturday. She is doing well. No abdominal tenderness. Bilirubin and the rest of the liver function tests are still improving and amylase and lipase have normalized. Abdomen remains slightly distended and tympanic. She is having regular bowel moments. No fever. No chills she is gotten weak and quite debilitated following the septic event and the patient has A Pneumonia and Her Blood and Currently She Still IV Zosyn. On Her Chest X-Ray, There Is Development of Small Bilateral Pleural Effusions. I am suggesting to kept on IV fluids to 40 mL an hour and I'm going to give her a dose of diuretics to optimize her fluid balance. No issues with pain or cardiac arrhythmias for now. On 02/28/2020, the patient is scheduled to undergo another ERCP for evaluation of cholelithiasis. She also may have an underlying choledocholithiasis. Note that she underwent a gallstone pancreatitis and cholangitis and cholecystitis with secondary Pneumonia Septicemia. She Underwent Her Last ERCP around 3 Days Ago. At That Time She Was Found to 5 Mm Filling Defect in the Distal Common Bile Duct. The Procedure Was Repeated Today and the patient had her CBD stent removed. She was found to have a dilated common bile duct with a 5 mm defect in distal bile duct status post sympathectomy and balloon stone extraction. The pancreatic duct intentionally not cannulated. The findings were noted. The patient was still taking clear liquid diet. She is being monitored very closely. IV heparin will be resumed. The plan is possibly to proceed with a cholecystectomy tomorrow. She is hemodynamic is stable pH is on no pressors for now. Her serum bilirubin is down to 1.4. AST and ALP are both normalizing. Serum albumin is at 2.5. Objective - Vital Signs Vital signs: Vital Signs Temp 98.0 F 02/28/20 08:00 Pulse 91 02/28/20 10:00 Resp 12 02/28/20 10:00 BP 117/62 02/28/20 10:00 Pulse Ox 92 L 02/28/20 10:00 Intake & Output 02/27/20 02/28/20 02/28/20 18:59 06:59 18:59 Intake Total 797.463 998.106 700 Output Total 2225 800 350 Balance -1427.537 198.106 350 Weight 97.2 kg Intake: IV 625 440 500 Sodium Chloride 0.9% 1, 625 440 200 000 ml @ 40 mls/hr IV . Q24H NIKI Rx#:[id number] Intake, IV Titration 172.463 158.106 200 Amount Heparin Sod,Pork in 0.45% 172.463 158.106 NaCl 25,000 unit In 0.45 % NaCl 1 250ml.bag @ 10. 62 UNITS/KG/HR 9.993 mls/ hr IV .Q24H NIKI Rx#: [id number] Potassium Chloride 20 meq 200 In Water For Injection 1 100ml.bag @ 50 mls/hr IVPB Q2H NIKI Rx#: [id number] Oral 0 400 Output: Urine 2225 800 350 Other: Voiding Method Indwelling Catheter Indwelling Catheter Indwelling Catheter - Exam General: , Comfortable, currently on 3 L of oxygen by nasal cannula with a pulse ox of 94% Derm: no unusual rashes/lesions no unusual ecchymoses, warm, dry Head: atraumatic, normocephalic, symmetric Eyes: EOMI, no lid lag, anicteric sclera, pupils equal round reactive to light ENT: Nose and ears atraumatic, no thrush, no pharyngeal erythema Neck: No thyromegaly, no cervical lymphadenopathy, trachea midline, supple Mouth: no lip lesion, mucus membranes dry Cardiovascular: S1S2 tachycardic with grade 3 systolic ejection murmur with mid systolic click, positive posterior tibial pulse bilateral, no edema, capillary refill less than 2 seconds Lungs: Decreased breath sounds bilaterally, no rhonchi, no rales , no accessory muscle use Abdominal: soft, non tender to palpation , no guarding, no appreciable orga nomegaly, the bowel sounds are hypoactive and abdomen is slightly distended and the abdomen is slightly tympanic and is consistent with possibly some underlying ileus. Ext: no gross muscle atrophy, muscle strength 5 out of 5 in all 4 extremities grossly, no contractures, Neuro: CN II-XI grossly intact, light touch intact all 4 extremities, finger to nose within normal limits, and the patient is globally weak. Psych: Alert, oriented, appears lethargic and she is following commands and answering questions appropriately. - Labs CBC & Chem 7: 02/28/20 05:55 02/28/20 05:55 Labs: Abnormal Lab Results - Last 24 Hours (Table) 02/27/20 02/27/20 02/27/20 Range/Units 17:41 20:33 21:51 WBC (3.8-10.6) k/uL Hgb (11.4-16.0) gm/dL Hct (34.0-46.0) % MCV (80.0-100.0) fL APTT (22.0-30.0) sec Sodium (137-145) mmol/L Potassium 2.9 L (3.5-5.1) mmol/L Creatinine (0.52-1.04) mg/dL Glucose (74-99) mg/dL POC Glucose (mg/dL) 131 H 155 H (75-99) mg/dL Calcium (8.4-10.2) mg/dL Magnesium (1.6-2.3) mg/dL Total Bilirubin (0.2-1.3) mg/dL ALT (4-34) U/L Total Protein (6.3-8.2) g/dL Albumin (3.5-5.0) g/dL 02/28/20 02/28/20 02/28/20 Range/Units 05:55 05:55 05:55 WBC 14.5 H (3.8-10.6) k/uL Hgb 10.4 L (11.4-16.0) gm/dL Hct 31.6 L (34.0-46.0) % MCV 77.6 L (80.0-100.0) fL APTT 21.8 L (22.0-30.0) sec Sodium 134 L (137-145) mmol/L Potassium (3.5-5.1) mmol/L Creatinine 0.46 L (0.52-1.04) mg/dL Glucose 102 H (74-99) mg/dL POC Glucose (mg/dL) (75-99) mg/dL Calcium 7.8 L (8.4-10.2) mg/dL Magnesium 1.5 L (1.6-2.3) mg/dL Total Bilirubin 1.4 H (0.2-1.3) mg/dL ALT 99 H (4-34) U/L Total Protein 5.2 L (6.3-8.2) g/dL Albumin 2.5 L (3.5-5.0) g/dL 02/28/20 Range/Units 07:24 WBC (3.8-10.6) k/uL Hgb (11.4-16.0) gm/dL Hct (34.0-46.0) % MCV (80.0-100.0) fL APTT (22.0-30.0) sec Sodium (137-145) mmol/L Potassium (3.5-5.1) mmol/L Creatinine (0.52-1.04) mg/dL Glucose (74-99) mg/dL POC Glucose (mg/dL) 114 H (75-99) mg/dL Calcium (8.4-10.2) mg/dL Magnesium (1.6-2.3) mg/dL Total Bilirubin (0.2-1.3) mg/dL ALT (4-34) U/L Total Protein (6.3-8.2) g/dL Albumin (3.5-5.0) g/dL Microbiology - Last 24 Hours (Table) 02/25/20 03:48 Gram Stain - Final Sputum Sputum Culture - Final Assessment and Plan Plan: 1 Acute gallstone pancreatitis, consider a stone in the CBD as the patient has dilation of the common bile duct. The patient bilirubin and the rest of the liver function tests are improving. Amylase lipase have normalized. The patient had ERCP 2 with subsequent cholecystectomy on Saturday to follow.. A repeat ERCP was done today and this CBD duct stent was removed. Further sphincterotomy was done. Awaiting cholecystectomy possibly by tomorrow. The bilirubin and the rest of the liver function tests of still being proving. 2 Acute cholecystitis, with possible cholangitis and the patient had a gram- negative sepsis with Klebsiella pneumonia, the patient continues to be an IV Zosyn and the patient is currently off pressors 3 Acute abdominal pain secondary to above with secondary abdominal distention, possibly component of ileus 4 Sepsis with secondary hypotension, recovered 5 Leukocytosis secondary to above, improving 6 Lactic acidosis secondary to above, improving 7 Coumadin toxicity, recovered and the patient is currently on IV heparin regarding her mechanical aortic valve 8 Congenital heart disease, post AVR (mechanical valve) 9 Hypothyroidism 10 abdominal distention secondary to above, improving 11 acute hypoxic respiratory failure secondary to above and a chest x-ray showing some atelectatic changes and small effusions bilaterally, the patient was intubated and placed on mechanical ventilation post ERCP. the patient was extubated and currently 3 liters of oxygen by nasal cannula. Chest x-ray shows small pleural effusion. 12 non-anion gap metabolic acidosis, recovered Plan IV fluids of 40 mL an hour Clear liquid diet continued IV Zosyn Monitor LFTs, improving amylase and lipase, normalized Continue IV heparin regarding the mechanical aortic valve, this was stopped for the per murmurs of ERCP and this will be restarted back again today to be stopped prior to surgical intervention/cholecystectomy Dilaudid for pain control General surgeries on the case for possible cholecystectomy at a later stage
[2020-02-28] MEDS: MAGNESIUM SULFATE-D5W PMX 1 GM in DEXTROSE/WATER 1 100ML.BAG IVPB SCH ×2 (11:59→13:38)
[2020-02-28] MEDS: HEPARIN SOD,PORK IN 0.45% NACL 25,000 UNIT in 0.45% NACL 1 250ML.BAG IV SCH (11:59)
--- NOTE | 2020-02-28 19:01 | P.PN ---
Subjective Progress Note Date: 02/28/20 Principal diagnosis: abdominal pain Patient is a 69-year-old female with history of congenital heart disease status post mechanical aortic valve replacement 2 on Coumadin therapy, hypothyroidism, and menopausal symptoms continued on estrogen cream presented to the emergency department with complaints of abdominal pain. Patient is visiting here from [place]. In the emergency department she underwent an extensive evaluation. On arrival she was found to be tachycardic with a pulse of 117 and hypotensive with a blood pressure of 97/63. Laboratory analysis showed a lactic acid of 5.5, INR 6.3, white blood cell count 22.4, bilirubin 7.2, AST 432, ALT 530, alk Phosphatase 369, amylase 5656, and lipase of greater than 20,000. Gallbladder ultrasound showed mild hepatic duct dilatation with hydrophilic gallbladder and gallbladder wall thickening with small gallstones or dilated common bile duct. CT abdomen and pelvis showed cholecystitis with uterine mass reflecting underlying leiomyomatous changes. She was subsequently diagnosed with ascending cholangitis with sepsis. She was started on IV fluids and Zosyn. Cardiology was contacted for need for INR reversal as patient has a mechanical aortic valve, GI was contacted and plans for ERCP, surgery was contacted, and critical care was contacted. Arrangements were made for admission to the ICU. She was given vitamin K and FFP. Overnight the patient became both extensive necessitating levophed drip. Her INR had corrected to 2, upper GI 101.5 or less she was given 3 units of FFP. On the morning of 02/23 shows to be thrombocytopenic, white blood cell count had improved, INR was 2, lipase 6079, b ilirubin 7.8, AST 528, ALT 568. She had a repeat CT of the abdomen and pelvis obtained which again demonstrated signs of an enlarged gallbladder consistent with cholecystitis. There was concern for ileus and she was seen by surgery and NG tube was placed. She underwent ERCP on 02/22 with placement of a CBD stent, she did develop some respiratory failure and was intubated with the procedure. She was able to be extubated by the morning of 02/23. She continued to improve. She underwent ERCP with stent retrieval and stone extraction on 02/27. Patient seen and examined at bedside. Diarrhea this morning, no chest pain, SOB, or nausea, intermittent belly pain today. Objective - Vital Signs Vital signs: Vital Signs Temp 98.0 F 02/28/20 16:00 Pulse 85 02/28/20 17:00 Resp 19 02/28/20 17:00 BP 102/74 02/28/20 17:00 Pulse Ox 95 02/28/20 17:00 Intake & Output 02/27/20 02/28/20 02/28/20 18:59 06:59 18:59 Intake Total 797.463 223.558 2024 Output Total 2225 800 570 Balance -1427.537 198.106 750 Weight 97.2 kg Intake: IV 625 440 660 Sodium Chloride 0.9% 1, 625 440 360 000 ml @ 40 mls/hr IV . Q24H NIKI Rx#:[id number] Intake, IV Titration 172.463 158.106 300 Amount Heparin Sod,Pork in 0.45% 172.463 158.106 NaCl 25,000 unit In 0.45 % NaCl 1 250ml.bag @ 10. 62 UNITS/KG/HR 9.993 mls/ hr IV .Q24H NIKI Rx#: [id number] Magnesium Sulfate-D5w Pmx 100 1 gm In Dextrose/Water 1 100ml.bag @ 100 mls/hr IVPB Q1H NIKI Rx#: [id number] Potassium Chloride 20 meq 200 In Water For Injection 1 100ml.bag @ 50 mls/hr IVPB Q2H NIKI Rx#: [id number] Oral 0 400 360 Output: Urine 2225 800 570 Other: Voiding Method Indwelling Catheter Indwelling Catheter Indwelling Catheter - Exam General: Ill appearing, no distress, appears at stated age Derm: warm, dry Head: atraumatic, normocephalic, symmetric Eyes: EOMI, no lid lag, anicteric sclera Mouth: no lip lesion, mucus membranes moist Cardiovascular: S1-S2 regular with mechanical click mid systolic, positive posterior tibial pulse bilateral, Lungs: Decreased breath sounds bilateral, no rhonchi, no rales , no accessory muscle use Abdominal: soft, + tender to palpation right upper quadrant, no guarding, no appreciable organomegaly Ext: no gross muscle atrophy, 1+ edema, no contractures Neuro: CN II-XI grossly intact, no focal neuro deficits Psych: Awake, oriented, appropriate affect - Labs CBC & Chem 7: 02/28/20 05:55 02/28/20 14:08 Labs: Abnormal Lab Results - Last 24 Hours (Table) 02/27/20 02/27/20 02/28/20 Range/Units 20:33 21:51 05:55 WBC (3.8-10.6) k/uL Hgb (11.4-16.0) gm/dL Hct (34.0-46.0) % MCV (80.0-100.0) fL APTT 21.8 L (22.0-30.0) sec Sodium (137-145) mmol/L Potassium 2.9 L (3.5-5.1) mmol/L Creatinine (0.52-1.04) mg/dL Glucose (74-99) mg/dL POC Glucose (mg/dL) 155 H (75-99) mg/dL Calcium (8.4-10.2) mg/dL Magnesium (1.6-2.3) mg/dL Total Bilirubin (0.2-1.3) mg/dL ALT (4-34) U/L Total Protein (6.3-8.2) g/dL Albumin (3.5-5.0) g/dL 02/28/20 02/28/20 02/28/20 Range/Units 05:55 05:55 07:24 WBC 14.5 H (3.8-10.6) k/uL Hgb 10.4 L (11.4-16.0) gm/dL Hct 31.6 L (34.0-46.0) % MCV 77.6 L (80.0-100.0) fL APTT (22.0-30.0) sec Sodium 134 L (137-145) mmol/L Potassium (3.5-5.1) mmol/L Creatinine 0.46 L (0.52-1.04) mg/dL Glucose 102 H (74-99) mg/dL POC Glucose (mg/dL) 114 H (75-99) mg/dL Calcium 7.8 L (8.4-10.2) mg/dL Magnesium 1.5 L (1.6-2.3) mg/dL Total Bilirubin 1.4 H (0.2-1.3) mg/dL ALT 99 H (4-34) U/L Total Protein 5.2 L (6.3-8.2) g/dL Albumin 2.5 L (3.5-5.0) g/dL Microbiology - Last 24 Hours (Table) 02/27/20 09:09 Blood Culture - Preliminary Blood No Growth after 24 hours 02/27/20 08:28 Blood Culture - Preliminary Blood No Growth after 24 hours Assessment and Plan Assessment: Acute Cholecystitis/Cholangitis with septic shock, gallstone pancreatitis and klebsiella bacteremia, S/P CBD stent - GI consult: ERCP with CBD stone removal done today - general surgery recs appreciated: plan for Eva in AM per nursing, Heparin gtt off at 2 am - Zosyn - IV fluids - Clear liquids - Follow blood pressures closely - repeat blood cultures due to mechanical heart valve to ensure clearance Acute liver failure likely secondary to obstruction due to gallstones -Improving -GI recommendations appreciated -Liver ultrasound does show mildly heterogeneous liver Possible ileus - patient with NGT earlier this stay - No DM since 02/21 - start miralax - full liquid diet Aortic valve replacement secondary to congenital heart disease -Cardiology recommendations appreciated -Echo with normally functioning mechanical aortic valve -Reversed Coumadin -Heparin drip will need to be gapped before discharge or if cardio is willing to follow INR then could consider bridge with lovenox. Thrombocytopenia, improving - Follow CBC - reactive Hypothyroidism -Thyroid medication Coumadin coagulopathy with supratherapeutic INR, Mechanical aortic valve, resolved Hypomagnesemia, resolved Hyponatremia, resolved Hypokalemia, resolved Metabolic acidosis secondary to lactic acidosis, resolved Acute kidney injury versus chronic kidney disease, resolved Lactic acidosis secondary to sepsis and liver dysfunction, resolved CODE STATUS: Full DVT prophylaxis:Heparin gtt Discussed with: Patient, nursing, Anticipated discharge date: 3-[address]: Home A total of 35 minutes was spent on the care of this complex patient more than 50% of the time was spent in counseling and care coordination.
[2020-02-28 20:26] LABS: Glucose,Whole Blood 127 mg/dL (75-99)
[2020-02-28] MEDS: SODIUM CHLORIDE 0.9% 1,000 ML IV SCH (20:50)
--- NOTE | 2020-02-29 00:31 | PN ---
PROGRESS NOTE This is a 69-year-old lady with history of aortic valve replacement is admitted to hospital with ascending cholangitis. She underwent an ERCP and extraction of gallstone today. She is feeling better. Heparin had been restarted. PHYSICAL EXAMINATION: On exam, vital signs are stable. Chest exam reveals good air entry bilaterally. Heart exam reveals first and second heart sounds. Mechanical valve sound is heard. Abdomen is soft. Exam of extremities did not reveal any edema. Peripheral pulses are felt. LABS: Labs show a hemoglobin of 10.4, potassium is 3.5, creatinine is 0.46. ASSESSMENT: 1. Status post aortic valve replacement. 2. Ascending cholangitis. PLAN: She will continue current medications. IV heparin is resumed and once after the cholecystectomy is done, we will put her back on Coumadin. MMODL / IJN: [id number] /
[2020-02-29] MEDS: HYDROmorphone 1 MG/ML 1 ML SYRINGE IVP PRN ×5 (01:34→22:45)
[2020-02-29] MEDS: NOREPINEPHRINE 32 MG in SODIUM CHLORIDE 0.9% 218 ML IV SCH (04:02)
[2020-02-29 05:43] LABS: HCT 32.2 % (34.0-46.0); HGB 10.2 gm/dL (11.4-16.0); Hypochromasia Slight; MCH 24.9 pg (25.0-35.0); MCHC 31.6 g/dL (31.0-37.0); MCV 78.9 fL (80.0-100.0); Mean Platelet Volume 7.5; Platelet Count 167 k/uL (150-450); RBC 4.09 m/uL (3.80-5.40); RDW 14.9 % (11.5-15.5); WBC 12.8 k/uL (3.8-10.6)
[2020-02-29 05:44] LABS: Prothrombin Time 10.6 sec (9.0-12.0)
[2020-02-29 06:03] LABS: Nucleated Red Blood Cells 0 /100 WBC (0-0)
[2020-02-29 06:04] LABS: Eosinophils # (M) 0.77 k/uL (0-0.7); Lymphocytes # (M) 1.66 k/uL (1.0-4.8); Metamyelocytes # (M) 0.51 k/uL (0); Metamyelocytes % 4 %; Monocytes # (M) 0.77 k/uL (0-1.0); Neutrophils % (M) 67 %
[2020-02-29 06:05] LABS: Band Neutrophils % 2 %; Myelocytes # (M) 0.26 k/uL (0); Myelocytes % 2 %; Total Cells Counted 200
[2020-02-29 06:09] LABS: ALT 72 U/L (4-34); AST 29 U/L (14-36); African American GFR (CKD) >90 (>60 ml/min/1.73 sqM); Albumin 2.6 g/dL (3.5-5.0); Alkaline Phosphatase 112 U/L (38-126); Anion Gap 6 mmol/L; Blood Urea Nitrogen 9 mg/dL (7-17); Calcium 7.8 mg/dL (8.4-10.2); Carbon Dioxide 29 mmol/L (22-30); Chloride 98 mmol/L (98-107); Glucose 106 mg/dL (74-99); Magnesium 1.8 mg/dL (1.6-2.3); Non-African American GFR(CKD) >90 (>60 ml/min/1.73 sqM); Potassium 3.8 mmol/L (3.5-5.1); Sodium 133 mmol/L (137-145); Total Bilirubin 1.2 mg/dL (0.2-1.3); Total Protein 5.3 g/dL (6.3-8.2)
[2020-02-29] MEDS: MAGNESIUM SULFATE-D5W PMX 1 GM in DEXTROSE/WATER 1 100ML.BAG IVPB SCH ×2 (06:44→08:44)
[2020-02-29] MEDS: POTASSIUM CHLORIDE 10 MEQ in WATER FOR INJECTION 1 100ML.BAG IVPB SCH ×2 (06:44→08:43)
[2020-02-29 06:48] LABS: Glucose,Whole Blood 111 mg/dL (75-99)
[2020-02-29] MEDS: IPRATROPIUM-ALBUTEROL 3 ML NEB INHALATION SCH ×4 (08:07→19:39)
[2020-02-29] MEDS: PIPERACILLIN-TAZOBACTAM 3.375 GM in SODIUM CHLORIDE 0.9% 100 ML IVPB SCH ×2 (08:44→17:21)
[2020-02-29] MEDS: PANTOPRAZOLE 40 MG/10 ML VIAL IV SCH (08:45)
[2020-02-29] MEDS: POLYETHYLENE GLYCOL 3350 17 GM POWD.PACK PO SCH (08:45)
--- NOTE | 2020-02-29 11:50 | PN ---
PROGRESS NOTE Ibis is a 69-year-old lady that is admitted to the hospital with ascending cholangitis. MMODL / IJN: [id number] /
[2020-02-29 12:14] LABS: Glucose,Whole Blood 94 mg/dL (75-99)
--- NOTE | 2020-02-29 12:14 | PN ---
PROGRESS NOTE Ibis is a 69-year-old lady that is admitted to hospital with ascending cholangitis, has a mechanical aortic valve. She underwent ERCP, stone extraction, and will undergo cholecystectomy. This morning, she is doing well and is free of symptoms. On exam, heart rate is 87 beats per minute. Blood pressure is 126/64, respiratory 17. There is no jugular venous distention. Chest exam reveals good air entry bilaterally. Heart exam reveals first and second heart sounds. Mechanical valve sound is heard. Abdomen soft. Exam of extremities did not reveal any edema. Peripheral pulses are felt. LABS: Show a hemoglobin of 10.2, potassium is 3.8. Creatinine is 0.45. ASSESSMENT: 1. Ascending cholangitis. 2. Status post mechanical aortic valve replacement. PLAN: The patient will undergo cholecystectomy today. We will resume IV heparin whenever it is okay with the surgeon. JONELLE / GI: [id number] /
[2020-02-29] MEDS ORDERED: BUPIVACAIN-EPI 0.25%-1:200,000 30 ML VIAL SQ ONE ×2 (12:25→13:00)
[2020-02-29] MEDS ORDERED: SUCCINYLCHOLINE CHLORIDE 100 MG/5 ML SYR IV ONE (12:37)
[2020-02-29] MEDS ORDERED: GLYCOPYRROLATE 0.2 MG/ML 2 ML VIAL ONE (12:37)
[2020-02-29] MEDS ORDERED: IV FLUID CONTINUATION 1,000 ML IV ONE (12:37)
[2020-02-29] MEDS ORDERED: PROPOFOL 10 MG/ML 20 ML VIAL IV ONE (12:37)
[2020-02-29] MEDS ORDERED: ROCURONIUM BROMIDE 10 MG/ML 5 ML VIAL IV ONE (12:37)
[2020-02-29] MEDS ORDERED: NEOSTIGMINE 1 MG/ML 10 ML VIAL ONE (12:37)
[2020-02-29] MEDS ORDERED: LIDOCAINE 1% INJ 10MG/ML (20 ML MDV) ONE (12:37)
[2020-02-29] MEDS ORDERED: fentaNYL (PF) 50 MCG/ML 2 ML AMP ONE (12:37)
[2020-02-29] MEDS ORDERED: SODIUM CHLORIDE 0.9% 1,000 ML IV ONE (13:17)
--- NOTE | 2020-02-29 13:35 | P.OP ---
Date of Procedure: 02/29/20 Preoperative Diagnosis: Gallstone pancreatitis Postoperative Diagnosis: Gallstone pancreatitis Procedure(s) Performed: Laparoscopic cholecystectomy Anesthesia: JENNY Surgeon: Steffen Jara Estimated Blood Loss (ml): 5 Pathology: other (Gallbladder) Condition: stable Disposition: PACU Description of Procedure: The patient was placed on the operating table. The patient received a general endotracheal tube anesthesia. The patients abdomen was prepped and draped in the usual sterile fashion. Through an infraumbilical stab incision, the fascia of the anterior abdominal wall was grasped with a pair of Kochers and then the Veress needle was placed in the peritoneal cavity. Position of the Veress needle was confirmed with positive drop test. The abdomen was then insufflated. After adequate insufflation, the 10 mm trocar was placed in the peritoneal cavity. Following this the laparoscope was placed in the peritoneal cavity. The patient was placed in the head-up, right side up position and then a 5 mm trocar was placed in the right lateral and right subcostal position under direct visualization. A 8 mm trocar was placed in the epigastric position. The gallbladder was grasped in the fundus and infundibulum. Traction on the gallbladder was placed in the lateral and the cephalad positions. The triangle of Calot was visualized.. The cystic duct was bluntly dissected until the union of the cystic duct and common bile duct was seen. A critical view of safety was achieved. The cystic duct was then divided and sealed with the Harmonic scissors. A PDS Endoloop was then placed throughout the cystic duct stump. The cystic artery divided and sealed with the Harmonic scissors. The gallbladder was then removed from the liver bed using Harmonic scissors. The gallbladder was then extracted through the epigastric port site. Operative field was checked for any bleeding spots and Harmonic scissors was used to coagulate the liver bed. The abdomen was irrigated. The trocars were removed. The skin was closed using interrupted 3-0 Vicryl suture. Dermabond dressing were applied. The patient tolerated the procedure well.s
[2020-02-29] MEDS: HYDROmorphone 1 MG/ML 1 ML SYRINGE IVP ONE ×2 (13:45→14:10)
--- NOTE | 2020-02-29 15:01 | P.PN ---
Subjective Progress Note Date: 02/29/20 Principal diagnosis: Acute gallstone pancreatitis and acute cholecystitis Patient was reevaluated today on 02/29/20, patient is scheduled to undergo laparoscopic cholecystectomy today. Patient presented initially with gallstone pancreatitis and cholangitis as well as cholecystitis with secondary septicemia. Her last ERCP was around 3 days ago, and repeated again yesterday. Patient is now scheduled for laparoscopic cholecystectomy sometime later this afternoon. Apparently patient feels generally weak, continues to have some vague discomfort in the right upper quadrant. Patient is now on heparin which will be discontinued couple of hours before her surgery, patient had previous valve replacement. She has a mechanical aortic valve. Labs today showed WBC of 12.8 hemoglobin of 10.2 in left lites are normal renal profile is normal. Chest x- ray from a few days ago showed bibasilar atelectasis, possible underlying airspace disease. Objective - Vital Signs Vital signs: Vital Signs Temp 98.8 F 02/29/20 14:30 Pulse 90 02/29/20 14:30 Resp 21 02/29/20 14:30 BP 136/70 02/29/20 14:30 Pulse Ox 93 L 02/29/20 14:30 Intake & Output 02/28/20 02/29/20 02/29/20 18:59 06:59 18:59 Intake Total 1920 363.380 6356 Output Total 010 603 8577 Balance 1150 190.601 210 Weight 97.7 kg 97.7 kg Intake: IV 968 947 9318 Sodium Chloride 0.9% 1, 520 440 320 000 ml @ 40 mls/hr IV . Q24H [facility] Rx#:[id number] Intake, IV Titration 500 150.601 300 Amount Heparin Sod,Pork in 0.45% 150.601 NaCl 25,000 unit In 0.45 % NaCl 1 250ml.bag @ 10. 29 UNITS/KG/HR 10.002 mls /hr IV .Q24H [facility] Rx#: [id number] Magnesium Sulfate-D5w Pmx 100 1 gm In Dextrose/Water 1 100ml.bag @ 100 mls/hr IVPB Q1H [facility] Rx#: [id number] Magnesium Sulfate-D5w Pmx 100 1 gm In Dextrose/Water 1 100ml.bag @ 100 mls/hr IVPB Q1H [facility] Rx#: [id number] Piperacillin-Tazobactam 3 100 .375 gm In Sodium Chloride 0.9% 100 ml @ 25 mls/hr IVPB Q8HR [facility] Rx# :[id number] Potassium Chloride 10 meq 100 In Water For Injection 1 100ml.bag @ 100 mls/hr IVPB Q1H [facility] Rx#: [id number] Potassium Chloride 20 meq 200 In Water For Injection 1 100ml.bag @ 50 mls/hr IVPB Q2H [facility] Rx#: [id number] Potassium Chloride 20 meq 200 In Water For Injection 1 100ml.bag @ 50 mls/hr IVPB Q2H [facility] Rx#: [id number] Oral 600 400 Output: Urine 922 089 0741 Estimated Blood Loss 10 Other: Voiding Method Indwelling Catheter Indwelling Catheter Indwelling Catheter - Exam General: Revealed a 69-year-old female in no distress, on 2 L nasal cannula, O2 saturations 95%. HEENT: PERRLA, EOMI, no icterus, no neck masses, no JVD, no stridor. Mouth: no lip lesion, mucus membranes dry Cardiovascular: Normal S1 and S2, no S3 gallop, 3/6 systolic murmur throughout the precordium. Mechanical valve click noted Lungs: Decreased breath sound bilaterally no crackles or rhonchi or wheezes. Abdominal: soft, non tender to palpation , no guarding, no appreciable organomegaly, minimal tenderness but no rebound no guarding in the right upper quadrant. Ext: No clubbing edema or cyanosis. Neuro: Globally weak, alert oriented 3 focal neurologic deficits.. Psych: Alert, oriented, appears lethargic and she is following commands and answering questions appropriately. - Labs CBC & Chem 7: 02/29/20 04:39 02/29/20 04:39 Labs: Abnormal Lab Results - Last 24 Hours (Table) 02/28/20 02/29/20 02/29/20 Range/Units 20:24 04:39 04:39 WBC 12.8 H (3.8-10.6) k/uL Hgb 10.2 L (11.4-16.0) gm/dL Hct 32.2 L (34.0-46.0) % MCV 78.9 L (80.0-100.0) fL MCH 24.9 L (25.0-35.0) pg Neutrophils # (Manual) 8.80 H (1.3-7.7) k/uL Eosinophils # (Manual) 0.77 H (0-0.7) k/uL Metamyelocytes # (Man) 0.51 H (0) k/uL Myelocytes # (Manual) 0.26 H (0) k/uL Sodium 133 L (137-145) mmol/L Creatinine 0.45 L (0.52-1.04) mg/dL Glucose 106 H (74-99) mg/dL POC Glucose (mg/dL) 127 H (75-99) mg/dL Calcium 7.8 L (8.4-10.2) mg/dL ALT 72 H (4-34) U/L Total Protein 5.3 L (6.3-8.2) g/dL Albumin 2.6 L (3.5-5.0) g/dL 02/29/20 Range/Units 06:46 WBC (3.8-10.6) k/uL Hgb (11.4-16.0) gm/dL Hct (34.0-46.0) % MCV (80.0-100.0) fL MCH (25.0-35.0) pg Neutrophils # (Manual) (1.3-7.7) k/uL Eosinophils # (Manual) (0-0.7) k/uL Metamyelocytes # (Man) (0) k/uL Myelocytes # (Manual) (0) k/uL Sodium (137-145) mmol/L Creatinine (0.52-1.04) mg/dL Glucose (74-99) mg/dL POC Glucose (mg/dL) 111 H (75-99) mg/dL Calcium (8.4-10.2) mg/dL ALT (4-34) U/L Total Protein (6.3-8.2) g/dL Albumin (3.5-5.0) g/dL Microbiology - Last 24 Hours (Table) 02/27/20 09:09 Blood Culture - Preliminary Blood No Growth after 48 hours 02/27/20 08:28 Blood Culture - Preliminary Blood No Growth after 48 hours Assessment and Plan Assessment: Impression: Acute gallstone pancreatitis. Acute cholecystitis and possible cholangitis Acute gram-negative sepsis with Klebsiella pneumoniae infection. Sepsis with secondary hypotension. Lactic acidosis secondary to above Coumadin toxicity on presentation patient has been on Coumadin for mechanical aortic valve. History of aortic valve replacement/mechanical valve. History of hypothyroidism. Acute hypoxic respiratory failure secondary to bibasilar atelectasis and small effusions, doubt pneumonia. Non-anion gap metabolic acidosis, resolved. Recommendation: Continue IV fluid. Hold heparin 2 hours before surgery. Scheduled for laparoscopic cholecystectomy today. Continue pain control. We'll continue to follow in the ICU. Continue antibiotics as. Infectious disease on the case patient is presently on Zosyn, Time with Patient: Less than 30
[2020-02-29] MEDS: MAG HYDROX/AL HYDROX/SIMETH 30 ML, LIDOCAINE VISCOUS 30 ML, diphenhydrAMINE ELIXIR 75 M... PO SCH ×8 (15:23→21:30)
[2020-02-29 17:13] LABS: Glucose,Whole Blood 89 mg/dL (75-99)
[2020-02-29] MEDS: THYROID, PORK 30 MG TAB PO SCH (17:35)
[2020-02-29] MEDS: SODIUM CHLORIDE 0.9% 1,000 ML IV SCH (17:36)
--- NOTE | 2020-02-29 18:21 | P.PN ---
Subjective Progress Note Date: 02/29/20 Principal diagnosis: Abdominal discomfort Patient was seen and examined. No acute events overnight. Underwent laparoscopic cholecystectomy today. Seen after her surgery. Patient reports abdominal bloating and discomfort since her surgery. No nausea or vomiting. She denies any chest pain, shortness of breath or palpitations. Spoke to family member at bedside. Objective - Vital Signs Vital signs: Vital Signs Temp 98.8 F 02/29/20 16:00 Pulse 93 02/29/20 17:00 Resp 16 02/29/20 17:00 BP 119/68 02/29/20 17:00 Pulse Ox 94 L 02/29/20 17:00 Intake & Output 02/28/20 02/29/20 02/29/20 18:59 06:59 18:59 Intake Total 1920 320.260 2356 Output Total 123 492 3077 Balance 1150 190.601 -20 Weight 97.7 kg 97.7 kg Intake: IV 706 907 7805 Sodium Chloride 0.9% 1, 520 440 440 000 ml @ 40 mls/hr IV . Q24H [facility] Rx#:[id number] Intake, IV Titration 500 150.601 300 Amount Heparin Sod,Pork in 0.45% 150.601 NaCl 25,000 unit In 0.45 % NaCl 1 250ml.bag @ 10. 29 UNITS/KG/HR 10.002 mls /hr IV .Q24H [facility] Rx#: [id number] Magnesium Sulfate-D5w Pmx 100 1 gm In Dextrose/Water 1 100ml.bag @ 100 mls/hr IVPB Q1H [facility] Rx#: [id number] Magnesium Sulfate-D5w Pmx 100 1 gm In Dextrose/Water 1 100ml.bag @ 100 mls/hr IVPB Q1H [facility] Rx#: [id number] Piperacillin-Tazobactam 3 100 .375 gm In Sodium Chloride 0.9% 100 ml @ 25 mls/hr IVPB Q8HR [facility] Rx# :[id number] Potassium Chloride 10 meq 100 In Water For Injection 1 100ml.bag @ 100 mls/hr IVPB Q1H [facility] Rx#: [id number] Potassium Chloride 20 meq 200 In Water For Injection 1 100ml.bag @ 50 mls/hr IVPB Q2H [facility] Rx#: [id number] Potassium Chloride 20 meq 200 In Water For Injection 1 100ml.bag @ 50 mls/hr IVPB Q2H [facility] Rx#: [id number] Oral 600 400 Output: Urine 964 322 9645 Estimated Blood Loss 10 Other: Voiding Method Indwelling Catheter Indwelling Catheter Indwelling Catheter - Exam General: [Ill-appearing], [no distress], [appears at stated age] Derm: [warm], [dry] Head: [atraumatic], [normocephalic], [symmetric] Eyes: [EOMI], [no lid lag], [anicteric sclera] Mouth: [no lip lesion], [mucus membranes moist] Cardiovascular: [S1S2 reg], [mechanical click noted], [positive DP pulse bilateral], Lungs: [CTA bilateral], [no rhonchi, no rales] , [no accessory muscle use] Abdominal: [soft], [mild tenderness at the site of laparoscopic scar], [no guarding], [no appreciable organomegaly] Ext: [no gross muscle atrophy], [no edema], [no contractures] Neuro: [no focal neuro deficits] Psych: [Alert], [oriented], [appropriate affect] - Labs CBC & Chem 7: 02/29/20 04:39 02/29/20 04:39 Labs: Abnormal Lab Results - Last 24 Hours (Table) 02/28/20 02/29/20 02/29/20 Range/Units 20:24 04:39 04:39 WBC 12.8 H (3.8-10.6) k/uL Hgb 10.2 L (11.4-16.0) gm/dL Hct 32.2 L (34.0-46.0) % MCV 78.9 L (80.0-100.0) fL MCH 24.9 L (25.0-35.0) pg Neutrophils # (Manual) 8.80 H (1.3-7.7) k/uL Eosinophils # (Manual) 0.77 H (0-0.7) k/uL Metamyelocytes # (Man) 0.51 H (0) k/uL Myelocytes # (Manual) 0.26 H (0) k/uL Sodium 133 L (137-145) mmol/L Creatinine 0.45 L (0.52-1.04) mg/dL Glucose 106 H (74-99) mg/dL POC Glucose (mg/dL) 127 H (75-99) mg/dL Calcium 7.8 L (8.4-10.2) mg/dL ALT 72 H (4-34) U/L Total Protein 5.3 L (6.3-8.2) g/dL Albumin 2.6 L (3.5-5.0) g/dL 02/29/20 Range/Units 06:46 WBC (3.8-10.6) k/uL Hgb (11.4-16.0) gm/dL Hct (34.0-46.0) % MCV (80.0-100.0) fL MCH (25.0-35.0) pg Neutrophils # (Manual) (1.3-7.7) k/uL Eosinophils # (Manual) (0-0.7) k/uL Metamyelocytes # (Man) (0) k/uL Myelocytes # (Manual) (0) k/uL Sodium (137-145) mmol/L Creatinine (0.52-1.04) mg/dL Glucose (74-99) mg/dL POC Glucose (mg/dL) 111 H (75-99) mg/dL Calcium (8.4-10.2) mg/dL ALT (4-34) U/L Total Protein (6.3-8.2) g/dL Albumin (3.5-5.0) g/dL Microbiology - Last 24 Hours (Table) 02/27/20 09:09 Blood Culture - Preliminary Blood No Growth after 48 hours 02/27/20 08:28 Blood Culture - Preliminary Blood No Growth after 48 hours Assessment and Plan Assessment: Acute Cholecystitis/Cholangitis with septic shock, gallstone pancreatitis and klebsiella bacteremia, S/P CBD stent - GI consult: ERCP with CBD stone removal done today - general surgery recs appreciated: Status post laparoscopic cholecystectomy POD 0 - Zosyn - IV fluids -Full liquid diet and advance as tolerated Acute liver failure likely secondary to obstruction due to gallstones -Improving -GI recommendations appreciated -Liver ultrasound does show mildly heterogeneous liver Possible ileus - Continue to monitor for bowel movement Aortic valve replacement secondary to congenital heart disease -Cardiology recommendations appreciated -Echo with normally functioning mechanical aortic valve -Reversed Coumadin -Restart heparin drip when okay with general surgery will need to be bridged to Coumadin Thrombocytopenia, improving - Follow CBC - reactive Hypothyroidism -Thyroid medication Coumadin coagulopathy with supratherapeutic INR, Mechanical aortic valve, resolved Hypomagnesemia, resolved Hyponatremia, resolved Hypokalemia, resolved Metabolic acidosis secondary to lactic acidosis, resolved Acute kidney injury versus chronic kidney disease, resolved Lactic acidosis secondary to sepsis and liver dysfunction, resolved
[2020-03-01] MEDS: PIPERACILLIN-TAZOBACTAM 3.375 GM in SODIUM CHLORIDE 0.9% 100 ML IVPB SCH ×4 (00:46→23:29)
[2020-03-01] MEDS: HYDROmorphone 1 MG/ML 1 ML SYRINGE IVP PRN ×6 (04:45→23:34)
[2020-03-01] MEDS: NOREPINEPHRINE 32 MG in SODIUM CHLORIDE 0.9% 218 ML IV SCH (05:16)
[2020-03-01 05:59] LABS: African American GFR (CKD) >90 (>60 ml/min/1.73 sqM); Anion Gap 8 mmol/L; Blood Urea Nitrogen 9 mg/dL (7-17); Calcium 7.9 mg/dL (8.4-10.2); Carbon Dioxide 26 mmol/L (22-30); Chloride 96 mmol/L (98-107); Glucose 92 mg/dL (74-99); Magnesium 1.8 mg/dL (1.6-2.3); Non-African American GFR(CKD) >90 (>60 ml/min/1.73 sqM); Potassium 3.9 mmol/L (3.5-5.1); Sodium 130 mmol/L (137-145)
[2020-03-01 06:03] LABS: INR 1.1 (<1.2); Prothrombin Time 10.8 sec (9.0-12.0)
[2020-03-01 06:07] LABS: Basophils # (A) 0.1 k/uL (0-0.2); Basophils % (A) 1 %; Eosinophils # (A) 0.3 k/uL (0-0.7); Eosinophils % (A) 1 %; HCT 33.7 % (34.0-46.0); HGB 10.7 gm/dL (11.4-16.0); Hypochromasia Slight; Lymphocytes # (A) 1.5 k/uL (1.0-4.8); Lymphocytes % (A) 9 %; MCH 25.1 pg (25.0-35.0); MCHC 31.8 g/dL (31.0-37.0); MCV 78.9 fL (80.0-100.0); Mean Platelet Volume 8.5; Monocytes # (A) 0.6 k/uL (0-1.0); Monocytes % (A) 3 %; Neutrophils # (A) 14.2 k/uL (1.3-7.7); Neutrophils % (A) 82 %; Platelet Count 238 k/uL (150-450); RBC 4.27 m/uL (3.80-5.40); RDW 15.1 % (11.5-15.5); WBC 17.2 k/uL (3.8-10.6)
[2020-03-01] MEDS ORDERED: POTASSIUM CHLORIDE ER 20 MEQ TAB.ER PO SCH (07:00)
[2020-03-01] MEDS: IPRATROPIUM-ALBUTEROL 3 ML NEB INHALATION SCH ×4 (07:20→19:40)
--- NOTE | 2020-03-01 08:16 | XR ---
EXAMINATION TYPE: XR chest 1V portable DATE OF EXAM: 03/01/2020 Comparison: 02/27/2020 Clinical History: 69-year-old female exertional dyspnea Findings: Median sternotomy wires are present. Prosthetic cardiac valve. Heart upper limits of normal in size. Small bilateral effusions with bibasilar opacities persist. Impression: Persistent small effusions with bibasilar areas of atelectasis and/or consolidation.
[2020-03-01 09:12] LABS: Total Bilirubin 1.2 mg/dL (0.2-1.3)
[2020-03-01] MEDS: MAGNESIUM SULFATE-D5W PMX 1 GM in DEXTROSE/WATER 1 100ML.BAG IVPB SCH ×2 (10:03→12:33)
[2020-03-01] MEDS: MAG HYDROX/AL HYDROX/SIMETH 30 ML, LIDOCAINE VISCOUS 30 ML, diphenhydrAMINE ELIXIR 75 M... PO SCH ×12 (10:03→22:13)
[2020-03-01] MEDS: PANTOPRAZOLE 40 MG/10 ML VIAL IV SCH (10:05)
[2020-03-01] MEDS: THYROID, PORK 30 MG TAB PO SCH (10:05)
[2020-03-01] MEDS: POLYETHYLENE GLYCOL 3350 17 GM POWD.PACK PO SCH (10:05)
--- NOTE | 2020-03-01 11:28 | P.PN ---
Progress Note - Text Progress Note Date: 03/01/20 Patient is status post laparoscopic cholecystectomy. She's doing quite well. On exam her vital signs are stable. Her abdomen soft. Incision sites are clean dry tach. Patient will have her diet advanced.
[2020-03-01 11:43] LABS: Glucose,Whole Blood 173 mg/dL (75-99)
--- NOTE | 2020-03-01 12:20 | P.PN ---
Subjective Progress Note Date: 03/01/20 Principal diagnosis: Abdominal discomfort Patient was seen and examined. No acute events overnight. Underwent laparoscopic cholecystectomy POD 1. Patient reports no bowel movement or passing gas. Salazar catheter continued for 1 more day as per surgery. No nausea or vomiting. She denies any chest pain, shortness of breath or palpitations. Objective - Vital Signs Vital signs: Vital Signs Temp 97.9 F 03/01/20 08:00 Pulse 94 03/01/20 11:22 Resp 18 03/01/20 11:00 BP 125/65 03/01/20 11:00 Pulse Ox 93 L 03/01/20 11:00 Intake & Output 02/29/20 03/01/20 03/01/20 18:59 06:59 18:59 Intake Total 1580 620 520 Output Total 1735 1560 800 Balance -155 -940 -280 Weight 97.7 kg 100.4 kg Intake: IV 1280 620 360 Magnesium Sulfate-D5w Pmx 100 1 gm In Dextrose/Water 1 100ml.bag @ 100 mls/hr IVPB Q1H [facility] Rx#: [id number] Sodium Chloride 0.9% 1, 480 520 160 000 ml @ 40 mls/hr IV . Q24H [facility] Rx#:[id number] Zosyn 100 100 Intake, IV Titration 300 Amount Magnesium Sulfate-D5w Pmx 100 1 gm In Dextrose/Water 1 100ml.bag @ 100 mls/hr IVPB Q1H [facility] Rx#: [id number] Piperacillin-Tazobactam 3 100 .375 gm In Sodium Chloride 0.9% 100 ml @ 25 mls/hr IVPB Q8HR [facility] Rx# :[id number] Potassium Chloride 10 meq 100 In Water For Injection 1 100ml.bag @ 100 mls/hr IVPB Q1H [facility] Rx#: [id number] Oral 160 Output: Urine 1725 1560 800 Estimated Blood Loss 10 Other: Voiding Method Indwelling Catheter Indwelling Catheter Indwelling Catheter - Exam General: [Ill-appearing], [no distress], [appears at stated age] Derm: [warm], [dry] Head: [atraumatic], [normocephalic], [symmetric] Eyes: [EOMI], [no lid lag], [anicteric sclera] Mouth: [no lip lesion], [mucus membranes moist] Cardiovascular: [S1S2 reg], [mechanical click noted], [positive DP pulse bilateral], Lungs: [CTA bilateral], [no rhonchi, no rales] , [no accessory muscle use] Abdominal: [soft], [mild tenderness at the site of laparoscopic scar, decreased bowel sounds], [no guarding], [no appreciable organomegaly] Ext: [no gross muscle atrophy], [no edema], [no contractures] Neuro: [no focal neuro deficits] Psych: [Alert and oriented 3 but flat affect] - Labs CBC & Chem 7: 03/01/20 05:08 03/01/20 05:08 Labs: Abnormal Lab Results - Last 24 Hours (Table) 03/01/20 03/01/20 03/01/20 Range/Units 05:08 05:08 05:08 WBC 17.2 H (3.8-10.6) k/uL Hgb 10.7 L (11.4-16.0) gm/dL Hct 33.7 L (34.0-46.0) % MCV 78.9 L (80.0-100.0) fL Neutrophils # 14.2 H (1.3-7.7) k/uL Sodium 130 L (137-145) mmol/L Chloride 96 L (98-107) mmol/L Creatinine 0.43 L (0.52-1.04) mg/dL POC Glucose (mg/dL) (75-99) mg/dL Calcium 7.9 L (8.4-10.2) mg/dL AST 46 H (14-36) U/L ALT 74 H (4-34) U/L 03/01/20 Range/Units 11:41 WBC (3.8-10.6) k/uL Hgb (11.4-16.0) gm/dL Hct (34.0-46.0) % MCV (80.0-100.0) fL Neutrophils # (1.3-7.7) k/uL Sodium (137-145) mmol/L Chloride (98-107) mmol/L Creatinine (0.52-1.04) mg/dL POC Glucose (mg/dL) 173 H (75-99) mg/dL Calcium (8.4-10.2) mg/dL AST (14-36) U/L ALT (4-34) U/L Microbiology - Last 24 Hours (Table) 02/27/20 09:09 Blood Culture - Preliminary Blood No Growth after 72 hours 02/27/20 08:28 Blood Culture - Preliminary Blood No Growth after 72 hours Assessment and Plan Assessment: Acute Cholecystitis/Cholangitis with septic shock, gallstone pancreatitis and klebsiella bacteremia, S/P CBD stent - GI consult: Status post ERCP with CBD stone removal - General surgery consult: Status post laparoscopic cholecystectomy POD 1 - Zosyn - IV fluids - Advance to low-fat diet Leukocytosis - Likely reactive from surgery - Continue to monitor for any signs of infection Hyponatremia - Sodium 130 likely related to dehydration - Continue IVF and repeat BMP tomorrow morning Acute liver failure likely secondary to obstruction due to gallstones - Improving - GI recommendations appreciated - Liver ultrasound does show mildly heterogeneous liver Possible ileus - Continue to monitor for bowel movement Aortic valve replacement secondary to congenital heart disease - Cardiology recommendations appreciated - Echo with normally functioning mechanical aortic valve - Reversed Coumadin - Restart heparin drip today and bridge to Coumadin Thrombocytopenia, improving - Follow CBC - reactive Hypothyroidism -Thyroid medication Coumadin coagulopathy with supratherapeutic INR, Mechanical aortic valve, resolved Hypomagnesemia, resolved Hyponatremia, resolved Hypokalemia, resolved Metabolic acidosis secondary to lactic acidosis, resolved Acute kidney injury versus chronic kidney disease, resolved Lactic acidosis secondary to sepsis and liver dysfunction, resolved
[2020-03-01 12:24] VITALS: BMI 34.7
[2020-03-01] MEDS: HEPARIN SOD,PORK IN 0.45% NACL 25,000 UNIT in 0.45% NACL 1 250ML.BAG IV SCH (13:34)
--- NOTE | 2020-03-01 14:23 | P.PN ---
Subjective Progress Note Date: 03/01/20 Principal diagnosis: Acute gallstone pancreatitis and acute cholecystitis Patient was reevaluated today on 02/29/20, patient is scheduled to undergo laparoscopic cholecystectomy today. Patient presented initially with gallstone pancreatitis and cholangitis as well as cholecystitis with secondary septicemia. Her last ERCP was around 3 days ago, and repeated again yesterday. Patient is now scheduled for laparoscopic cholecystectomy sometime later this afternoon. Apparently patient feels generally weak, continues to have some vague discomfort in the right upper quadrant. Patient is now on heparin which will be discontinued couple of hours before her surgery, patient had previous valve replacement. She has a mechanical aortic valve. Labs today showed WBC of 12.8 hemoglobin of 10.2 in left lites are normal renal profile is normal. Chest x- ray from a few days ago showed bibasilar atelectasis, possible underlying airspace disease. Patient was reevaluated today on 03/01/20, underwent laparoscopic cholecystectomy yesterday, and her postoperative course has been uneventful. Patient is on 5 L nasal cannula, O2 saturation is 94%. IV fluid is at 40 ML's per hour. Patient is in no distress. Chest x-ray is showing bibasilar atelectasis, possible bibasilar infiltrates. I believe it is mostly atelectasis than truly infiltrates, however the patient is already on antibiotics in the form of Zosyn for her abdominal issues/ascending cholangitis and cholecystitis. Patient will be instructed to use incentive spirometry and to do deep coughing and deep breathing. Patient is hemodynamically stable, hence I plan to transfer the patient out of the ICU to a regular medical floor. Labs were reviewed and chest x-ray was reviewed, again she has mostly bibasilar atelectasis, doubt infiltrates at the bases Objective - Vital Signs Vital signs: Vital Signs Temp 98.8 F 03/01/20 12:00 Pulse 98 03/01/20 12:00 Resp 25 H 03/01/20 12:00 BP 128/64 03/01/20 12:00 Pulse Ox 93 L 03/01/20 12:00 Intake & Output 02/29/20 03/01/20 03/01/20 18:59 06:59 18:59 Intake Total 1580 620 910 Output Total 1735 1560 1330 Balance -155 -940 -420 Weight 97.7 kg 100.4 kg 100.4 kg Intake: IV 1280 620 580 Magnesium Sulfate-D5w Pmx 200 1 gm In Dextrose/Water 1 100ml.bag @ 100 mls/hr IVPB Q1H NIKI Rx#: [id number] Sodium Chloride 0.9% 1, 480 520 280 000 ml @ 40 mls/hr IV . Q24H NIKI Rx#:[id number] Zosyn 100 100 Intake, IV Titration 300 Amount Magnesium Sulfate-D5w Pmx 100 1 gm In Dextrose/Water 1 100ml.bag @ 100 mls/hr IVPB Q1H NIKI Rx#: [id number] Piperacillin-Tazobactam 3 100 .375 gm In Sodium Chloride 0.9% 100 ml @ 25 mls/hr IVPB Q8HR NIKI Rx# :[id number] Potassium Chloride 10 meq 100 In Water For Injection 1 100ml.bag @ 100 mls/hr IVPB Q1H NKII Rx#: [id number] Oral 330 Output: Urine 1725 1560 1330 Estimated Blood Loss 10 Other: Voiding Method Indwelling Catheter Indwelling Catheter Indwelling Catheter - Exam General: Revealed a 69-year-old female in no distress, on 5 L nasal cannula, O2 saturations 94%. HEENT: PERRLA, EOMI, no icterus, no neck masses, no JVD, no stridor. Mouth: no lip lesion, mucus membranes dry Cardiovascular: Normal S1 and S2, no S3 gallop, 3/6 systolic murmur throughout the precordium. Mechanical valve click noted Lungs: Decreased breath sound bilaterally no crackles or rhonchi or wheezes. Abdominal: soft, non tender to palpation , no guarding, no appreciable organomegaly, minimal tenderness but no rebound no guarding in the right upper quadrant. Ext: No clubbing edema or cyanosis. Neuro: Globally weak, alert oriented 3 focal neurologic deficits.. Psych: Alert, oriented, no gross focal neurologic deficits. Normal mood affect and normal mental status examination - Labs CBC & Chem 7: 03/01/20 05:08 03/01/20 05:08 Labs: Abnormal Lab Results - Last 24 Hours (Table) 03/01/20 03/01/20 03/01/20 Range/Units 05:08 05:08 05:08 WBC 17.2 H (3.8-10.6) k/uL Hgb 10.7 L (11.4-16.0) gm/dL Hct 33.7 L (34.0-46.0) % MCV 78.9 L (80.0-100.0) fL Neutrophils # 14.2 H (1.3-7.7) k/uL Sodium 130 L (137-145) mmol/L Chloride 96 L (98-107) mmol/L Creatinine 0.43 L (0.52-1.04) mg/dL POC Glucose (mg/dL) (75-99) mg/dL Calcium 7.9 L (8.4-10.2) mg/dL AST 46 H (14-36) U/L ALT 74 H (4-34) U/L 03/01/20 Range/Units 11:41 WBC (3.8-10.6) k/uL Hgb (11.4-16.0) gm/dL Hct (34.0-46.0) % MCV (80.0-100.0) fL Neutrophils # (1.3-7.7) k/uL Sodium (137-145) mmol/L Chloride (98-107) mmol/L Creatinine (0.52-1.04) mg/dL POC Glucose (mg/dL) 173 H (75-99) mg/dL Calcium (8.4-10.2) mg/dL AST (14-36) U/L ALT (4-34) U/L Microbiology - Last 24 Hours (Table) 02/27/20 09:09 Blood Culture - Preliminary Blood No Growth after 72 hours 02/27/20 08:28 Blood Culture - Preliminary Blood No Growth after 72 hours Assessment and Plan Assessment: Impression: Status post cholecystectomy/laparoscopic cholecystectomy postoperative day #1. Acute gallstone pancreatitis. Acute cholecystitis and possible cholangitis Acute gram-negative sepsis with Klebsiella pneumoniae infection. Sepsis with secondary hypotension. Resolved. Lactic acidosis secondary to above resolved. Coumadin toxicity on presentation patient has been on Coumadin for mechanical aortic valve. History of aortic valve replacement/mechanical valve. History of hypothyroidism. Acute hypoxic respiratory failure secondary to bibasilar atelectasis and small effusions, doubt pneumonia. Non-anion gap metabolic acidosis, resolved. Recommendation: Continue IV fluid. Continue antibiotics/Zosyn. Resume heparin and eventually transition the patient to her usual Coumadin for previous history of aortic valve replacement/mechanical valve. Incentive spirometry and early ambulation. Continue pain control. Transfer patient to a monitor bed on selective. We'll continue to follow Time with Patient: Less than 30
[2020-03-01] MEDS: SODIUM CHLORIDE 0.9% 1,000 ML IV SCH (16:48)
[2020-03-01 16:55] LABS: Glucose,Whole Blood 118 mg/dL (75-99)
--- NOTE | 2020-03-01 18:36 | PN ---
PROGRESS NOTE FOLLOW-UP NOTE: Known of mechanical aortic valve admitted to hospital with ascending cholangitis and underwent cholecystectomy yesterday. This morning she is doing better, hemodynamically stable. Heparin is going to be resumed today per surgeon, and if she tolerates heparin well, I am going to resume Coumadin tomorrow. On exam, comfortable at rest. Vital signs are stable. Chest exam reveals good air entry bilaterally. Heart exam reveals first and second heart sounds. Mechanical heart valve sound is heard. Abdomen is soft. Examination of extremities did not reveal any edema. Peripheral pulses are felt. Labs show a hemoglobin of 10.7, potassium is 3.9, creatinine is 0.43. ASSESSMENT: 1. Status post mechanical aortic valve. 2. Ascending cholangitis, status post cholecystectomy. PLAN: Patient will resume Coumadin tomorrow. Start the IV heparin today. Surgeon has okayed it. MMODL / IJN: [id number] /
[2020-03-01] MEDS: HEPARIN SODIUM,PORCINE 5,000 UNIT/ML 1 ML VIAL IV PRN (20:14)
[2020-03-01 20:31] LABS: Glucose,Whole Blood 129 mg/dL (75-99)
--- NOTE | 2020-03-02 01:57 | P.PN ---
Subjective Progress Note Date: 03/01/20 Principal diagnosis: Ascending cholangitis, gallstone pancreatitis, elevated liver enzymes Patient is seen lying in bed today in the ICU status post cholecystectomy. Doing well. Tolerated diet. Overall feeling better. Objective - Vital Signs Vital signs: Vital Signs Temp 98.8 F 03/01/20 12:00 Pulse 98 03/01/20 12:00 Resp 25 H 03/01/20 12:00 BP 128/64 03/01/20 12:00 Pulse Ox 93 L 03/01/20 12:00 Intake & Output 02/29/20 03/01/20 03/01/20 18:59 06:59 18:59 Intake Total 1580 620 870 Output Total 1735 1560 1150 Balance -155 -940 -280 Weight 97.7 kg 100.4 kg 100.4 kg Intake: IV 1280 620 540 Magnesium Sulfate-D5w Pmx 200 1 gm In Dextrose/Water 1 100ml.bag @ 100 mls/hr IVPB Q1H NIKI Rx#: [id number] Sodium Chloride 0.9% 1, 480 520 240 000 ml @ 40 mls/hr IV . Q24H NIKI Rx#:[id number] Zosyn 100 100 Intake, IV Titration 300 Amount Magnesium Sulfate-D5w Pmx 100 1 gm In Dextrose/Water 1 100ml.bag @ 100 mls/hr IVPB Q1H NIKI Rx#: [id number] Piperacillin-Tazobactam 3 100 .375 gm In Sodium Chloride 0.9% 100 ml @ 25 mls/hr IVPB Q8HR NIKI Rx# :[id number] Potassium Chloride 10 meq 100 In Water For Injection 1 100ml.bag @ 100 mls/hr IVPB Q1H NIKI Rx#: [id number] Oral 330 Output: Urine 1725 1560 1150 Estimated Blood Loss 10 Other: Voiding Method Indwelling Catheter Indwelling Catheter Indwelling Catheter - Exam On physical examination, patient appears comfortable in no apparent distress. HEAD: Normocephalic, atraumatic. EYES: No scleral icterus. No conjunctival injection. MOUTH: No lesions, tongue midline. NECK: Trachea midline, no gross abnormalities. ABDOMEN: Soft, mildly tender to palpation. Bowel sounds are positive. No organomegaly. No guarding or rigidity. EXTREMITIES: No pedal edema. SKIN: No rashes, no jaundice. NEUROLOGIC: Alert and oriented x3. No focal deficits. - Labs CBC & Chem 7: 03/01/20 05:08 03/01/20 05:08 Labs: Abnormal Lab Results - Last 24 Hours (Table) 03/01/20 03/01/20 03/01/20 Range/Units 05:08 05:08 05:08 WBC 17.2 H (3.8-10.6) k/uL Hgb 10.7 L (11.4-16.0) gm/dL Hct 33.7 L (34.0-46.0) % MCV 78.9 L (80.0-100.0) fL Neutrophils # 14.2 H (1.3-7.7) k/uL Sodium 130 L (137-145) mmol/L Chloride 96 L (98-107) mmol/L Creatinine 0.43 L (0.52-1.04) mg/dL POC Glucose (mg/dL) (75-99) mg/dL Calcium 7.9 L (8.4-10.2) mg/dL AST 46 H (14-36) U/L ALT 74 H (4-34) U/L 03/01/20 Range/Units 11:41 WBC (3.8-10.6) k/uL Hgb (11.4-16.0) gm/dL Hct (34.0-46.0) % MCV (80.0-100.0) fL Neutrophils # (1.3-7.7) k/uL Sodium (137-145) mmol/L Chloride (98-107) mmol/L Creatinine (0.52-1.04) mg/dL POC Glucose (mg/dL) 173 H (75-99) mg/dL Calcium (8.4-10.2) mg/dL AST (14-36) U/L ALT (4-34) U/L Microbiology - Last 24 Hours (Table) 02/27/20 09:09 Blood Culture - Preliminary Blood No Growth after 72 hours 02/27/20 08:28 Blood Culture - Preliminary Blood No Growth after 72 hours Assessment and Plan (1) Ascending cholangitis Narrative/Plan: 69-year-old female with multiple medical comorbidities presenting with a constellation of symptoms and diagnosed with ascending cholangitis and acute gallstone pancreatitis. She is status post ERCP with biliary stent placement. Clinically much improved with improved liver enzymes and WBC count. She is status post ERCP with stent removal and sphincterotomy with balloon sweep of the bile duct. She subsequently underwent cholecystectomy. Seen in the ICU she is doing well. Current Visit: Yes Status: Acute Code(s): K83.09 - OTHER CHOLANGITIS SNOMED Code(s): 69414013 (2) Acute gallstone pancreatitis Current Visit: Yes Status: Acute Code(s): K85.10 - BILIARY ACUTE PANCREATITIS WITHOUT NECROSIS OR INFECTION SNOMED Code(s): 586574242 (3) Elevated liver enzymes Current Visit: Yes Status: Acute Code(s): R74.8 - ABNORMAL LEVELS OF OTHER SERUM ENZYMES SNOMED Code(s): 086118857 (4) Supratherapeutic INR Current Visit: Yes Status: Acute Code(s): R79.1 - ABNORMAL COAGULATION PROFILE SNOMED Code(s): 231588008 Plan: Supportive care Continue broad-spectrum antibiotic therapy Continue IV fluids and pressor support Appreciate recommendations from intensive the services surgical service No plans for further endoscopic evaluation at this time Thank you for allowing us to participate in the care of the patient, the GI service will stand by, please call us back with any questions or concerns
[2020-03-02 02:49] LABS: African American GFR (CKD) >90 (>60 ml/min/1.73 sqM); Anion Gap 2 mmol/L; Blood Urea Nitrogen 7 mg/dL (7-17); Calcium 7.9 mg/dL (8.4-10.2); Carbon Dioxide 30 mmol/L (22-30); Chloride 99 mmol/L (98-107); Glucose 118 mg/dL (74-99); Non-African American GFR(CKD) >90 (>60 ml/min/1.73 sqM); Potassium 3.8 mmol/L (3.5-5.1); Sodium 131 mmol/L (137-145)
[2020-03-02 02:59] LABS: Basophils # (A) 0.1 k/uL (0-0.2); Basophils % (A) 1 %; Eosinophils # (A) 0.3 k/uL (0-0.7); Eosinophils % (A) 2 %; HCT 32.1 % (34.0-46.0); HGB 10.3 gm/dL (11.4-16.0); Hypochromasia Slight; INR 1.1 (<1.2); Lymphocytes # (A) 1.9 k/uL (1.0-4.8); Lymphocytes % (A) 14 %; MCH 25.3 pg (25.0-35.0); MCHC 32.1 g/dL (31.0-37.0); MCV 78.9 fL (80.0-100.0); Mean Platelet Volume 8.3; Monocytes # (A) 0.5 k/uL (0-1.0); Monocytes % (A) 4 %; Neutrophils # (A) 10.5 k/uL (1.3-7.7); Neutrophils % (A) 76 %; Platelet Count 241 k/uL (150-450); Prothrombin Time 11.4 sec (9.0-12.0); RBC 4.07 m/uL (3.80-5.40); RDW 15.3 % (11.5-15.5); WBC 13.9 k/uL (3.8-10.6)
[2020-03-02] MEDS: HEPARIN SODIUM,PORCINE 5,000 UNIT/ML 1 ML VIAL IV PRN ×2 (03:48→11:11)
--- NOTE | 2020-03-02 09:10 | P.PN ---
Progress Note - Text Progress Note Date: 03/02/20 Patient doing well. Her abdomen soft. Incision sites clean and intact. Patient will be discharged home once cleared by medicine. We'll plan for follow-up visit next week in the office.
[2020-03-02] MEDS: HYDROmorphone 1 MG/ML 1 ML SYRINGE IVP PRN ×2 (09:18→15:07)
[2020-03-02] MEDS: PANTOPRAZOLE 40 MG TABLET PO SCH (09:18)
[2020-03-02] MEDS: POLYETHYLENE GLYCOL 3350 17 GM POWD.PACK PO SCH (09:18)
[2020-03-02] MEDS: THYROID, PORK 30 MG TAB PO SCH (09:18)
[2020-03-02] MEDS: HEPARIN SOD,PORK IN 0.45% NACL 25,000 UNIT in 0.45% NACL 1 250ML.BAG IV SCH ×3 (09:20→22:27)
[2020-03-02] MEDS: MAG HYDROX/AL HYDROX/SIMETH 30 ML, LIDOCAINE VISCOUS 30 ML, diphenhydrAMINE ELIXIR 75 M... PO SCH ×12 (09:22→20:38)
[2020-03-02] MEDS: IPRATROPIUM-ALBUTEROL 3 ML NEB INHALATION SCH ×4 (10:13→20:03)
--- NOTE | 2020-03-02 10:41 | XR ---
EXAMINATION TYPE: XR chest 1V portable DATE OF EXAM: 03/02/2020 COMPARISON: 03/01/2020 HISTORY: Hypoxia TECHNIQUE: Single frontal view of the chest is obtained. FINDINGS: Postoperative change. Bilateral consolidation and small effusion. Biapical pleural thicken ing. No overt failure. IMPRESSION: Bilateral lower lobe infiltrate and small effusion.
--- NOTE | 2020-03-02 12:22 | P.PN ---
Subjective Progress Note Date: 03/02/20 Principal diagnosis: Abdominal discomfort Patient was seen and examined. No acute events overnight. Underwent laparoscopic cholecystectomy POD 2. Patient reports bowel movement today. Salazar catheter continued as per surgery. No nausea or vomiting. She denies any chest pain, shortness of breath or palpitations. Chest x-ray showing bilateral lower lobe infiltrate and small effusion. Patient currently saturating mid 90s on 5 L nasal cannula. Objective - Vital Signs Vital signs: Vital Signs Temp 98.2 F 03/02/20 08:00 Pulse 108 H 03/02/20 11:33 Resp 16 03/02/20 10:00 BP 138/80 03/02/20 10:00 Pulse Ox 95 03/02/20 08:00 Intake & Output 03/01/20 03/02/20 03/02/20 18:59 06:59 18:59 Intake Total 1260 664.974 114.937 Output Total 1730 1210 Balance -470 -545.026 114.937 Weight 100.4 kg 95.8 kg Intake: IV 740 500 Magnesium Sulfate-D5w Pmx 200 1 gm In Dextrose/Water 1 100ml.bag @ 100 mls/hr IVPB Q1H NIKI Rx#: [id number] Sodium Chloride 0.9% 1, 440 400 000 ml @ 40 mls/hr IV . Q24H NIKI Rx#:[id number] Zosyn 100 100 Intake, IV Titration 164.974 114.937 Amount Heparin Sod,Pork in 0.45% 164.974 114.937 NaCl 25,000 unit In 0.45 % NaCl 1 250ml.bag @ 9.96 UNITS/KG/HR 10 mls/hr IV .Q24H NIKI Rx#:[id number] Oral 520 Output: Urine 1730 1210 Other: Voiding Method Indwelling Catheter Indwelling Catheter Indwelling Catheter - Exam General: [Ill-appearing], [no distress], [appears at stated age] Derm: [warm], [dry] Head: [atraumatic], [normocephalic], [symmetric] Eyes: [EOMI], [no lid lag], [anicteric sclera] Mouth: [no lip lesion], [mucus membranes moist] Cardiovascular: [S1S2 reg], [mechanical click noted, tachycardia], [positive DP pulse bilateral], Lungs: [Decreased breath sounds bilateral], [no rhonchi, no rales] , [no accessory muscle use] Abdominal: [soft], [mild tenderness at the site of laparoscopic scar, decreased bowel sounds], [no guarding], [no appreciable organomegaly] Ext: [no gross muscle atrophy], [no edema], [no contractures] Neuro: [no focal neuro deficits] Psych: [Alert and oriented 3 but flat affect] - Labs CBC & Chem 7: 03/02/20 02:21 03/02/20 02:21 Labs: Abnormal Lab Results - Last 24 Hours (Table) 03/01/20 03/01/20 03/02/20 Range/Units 16:53 20:29 02:21 WBC 13.9 H (3.8-10.6) k/uL Hgb 10.3 L (11.4-16.0) gm/dL Hct 32.1 L (34.0-46.0) % MCV 78.9 L (80.0-100.0) fL Neutrophils # 10.5 H (1.3-7.7) k/uL Sodium (137-145) mmol/L Glucose (74-99) mg/dL POC Glucose (mg/dL) 118 H 129 H (75-99) mg/dL Calcium (8.4-10.2) mg/dL 03/02/20 Range/Units 02:21 WBC (3.8-10.6) k/uL Hgb (11.4-16.0) gm/dL Hct (34.0-46.0) % MCV (80.0-100.0) fL Neutrophils # (1.3-7.7) k/uL Sodium 131 L (137-145) mmol/L Glucose 118 H (74-99) mg/dL POC Glucose (mg/dL) (75-99) mg/dL Calcium 7.9 L (8.4-10.2) mg/dL Microbiology - Last 24 Hours (Table) 02/27/20 08:28 Blood Culture - Preliminary Blood No Growth after 96 hours 02/27/20 09:09 Blood Culture - Preliminary Blood No Growth after 96 hours Assessment and Plan Assessment: Hypoxia with pleural effusion -Chest x-ray showing bilateral infiltrate with effusion -Attempt to wean down O2 -Start Lasix 40 mg IV twice a day Acute Cholecystitis/Cholangitis with septic shock, gallstone pancreatitis and klebsiella bacteremia, S/P CBD stent - GI consult: Status post ERCP with CBD stone removal - General surgery consult: Status post laparoscopic cholecystectomy POD 2 - Zosyn - IV fluids - Advance to low-fat diet Leukocytosis - Likely reactive from surgery - Continue to monitor for any signs of infection Hyponatremia - Sodium 131 likely related to dehydration - Continue IVF and repeat BMP tomorrow morning Acute liver failure likely secondary to obstruction due to gallstones - Improving - GI recommendations appreciated - Liver ultrasound does show mildly heterogeneous liver Possible ileus - Continue to monitor for bowel movement Aortic valve replacement secondary to congenital heart disease - Cardiology recommendations appreciated - Echo with normally functioning mechanical aortic valve - Reversed Coumadin -Continue heparin drip and bridge to Coumadin Thrombocytopenia, improving - Follow CBC - reactive Hypothyroidism -Thyroid medication Coumadin coagulopathy with supratherapeutic INR, Mechanical aortic valve, resolved Hypomagnesemia, resolved Hyponatremia, resolved Hypokalemia, resolved Metabolic acidosis secondary to lactic acidosis, resolved Acute kidney injury versus chronic kidney disease, resolved Lactic acidosis secondary to sepsis and liver dysfunction, resolved [Patient cleared by general surgery for discharge. Currently on heparin drip with Coumadin starting today. Started on Lasix for possible volume overload. Will attempt to wean down O2. She is pending clinical improvement. Likely DC in 1-2 days.]
--- NOTE | 2020-03-02 13:05 | P.PN ---
Subjective Progress Note Date: 03/02/20 Principal diagnosis: Acute gallstone pancreatitis and acute cholecystitis Patient was reevaluated today on 02/29/20, patient is scheduled to undergo laparoscopic cholecystectomy today. Patient presented initially with gallstone pancreatitis and cholangitis as well as cholecystitis with secondary septicemia. Her last ERCP was around 3 days ago, and repeated again yesterday. Patient is now scheduled for laparoscopic cholecystectomy sometime later this afternoon. Apparently patient feels generally weak, continues to have some vague discomfort in the right upper quadrant. Patient is now on heparin which will be discontinued couple of hours before her surgery, patient had previous valve replacement. She has a mechanical aortic valve. Labs today showed WBC of 12.8 hemoglobin of 10.2 in left lites are normal renal profile is normal. Chest x- ray from a few days ago showed bibasilar atelectasis, possible underlying airspace disease. Patient was reevaluated today on 03/01/20, underwent laparoscopic cholecystectomy yesterday, and her postoperative course has been uneventful. Patient is on 5 L nasal cannula, O2 saturation is 94%. IV fluid is at 40 ML's per hour. Patient is in no distress. Chest x-ray is showing bibasilar atelectasis, possible bibasilar infiltrates. I believe it is mostly atelectasis than truly infiltrates, however the patient is already on antibiotics in the form of Zosyn for her abdominal issues/ascending cholangitis and cholecystitis. Patient will be instructed to use incentive spirometry and to do deep coughing and deep breathing. Patient is hemodynamically stable, hence I plan to transfer the patient out of the ICU to a regular medical floor. Labs were reviewed and chest x-ray was reviewed, again she has mostly bibasilar atelectasis, doubt infiltrates at the bases Reevaluated today on 03/02/20, patient remains in the ICU, she is an overflow from selective. Remains on 5 L nasal cannula, she is achieving [id number] MLS on her incentive spirometer. She has good urine output, she is in no distress but maintained on 5 L nasal cannula. Chest x-ray showed mostly some right basilar atelectasis. Patient is on heparin and she was started on Coumadin and the dose will be adjusted accordingly on a daily basis. Overall the patient has made significant improvement, and I plan to transfer the patient out of the ICU to a regular medical floor. CBC is relatively unremarkable, and left lites are normal renal profile is normal. Patient is relatively asymptomatic. Denies any nausea vomiting abdominal pain and she denies any shortness of breath Objective - Vital Signs Vital signs: Vital Signs Temp 98.2 F 03/02/20 08:00 Pulse 108 H 03/02/20 11:33 Resp 16 03/02/20 10:00 BP 138/80 03/02/20 10:00 Pulse Ox 95 03/02/20 08:00 Intake & Output 03/01/20 03/02/20 03/02/20 18:59 06:59 18:59 Intake Total 1260 664.974 114.937 Output Total 1730 1210 Balance -470 -545.026 114.937 Weight 100.4 kg 95.8 kg Intake: IV 740 500 Magnesium Sulfate-D5w Pmx 200 1 gm In Dextrose/Water 1 100ml.bag @ 100 mls/hr IVPB Q1H NIKI Rx#: [id number] Sodium Chloride 0.9% 1, 440 400 000 ml @ 40 mls/hr IV . Q24H NIKI Rx#:[id number] Zosyn 100 100 Intake, IV Titration 164.974 114.937 Amount Heparin Sod,Pork in 0.45% 164.974 114.937 NaCl 25,000 unit In 0.45 % NaCl 1 250ml.bag @ 9.96 UNITS/KG/HR 10 mls/hr IV .Q24H NIKI Rx#:[id number] Oral 520 Output: Urine 1730 1210 Other: Voiding Method Indwelling Catheter Indwelling Catheter Indwelling Catheter - Exam General: Revealed a 69-year-old female in no distress, on 5 L nasal cannula, being titrated to maintain O2 saturation above 90% HEENT: PERRLA, EOMI, no icterus, no neck masses, no JVD, no stridor. Mouth: no lip lesion, mucus membranes dry Cardiovascular: Normal S1 and S2, no S3 gallop, 3/6 systolic murmur throughout the precordium. Mechanical valve click noted Lungs: Decreased breath sound bilaterally no crackles or rhonchi or wheezes. Abdominal: soft, non tender to palpation , no guarding, no appreciable organomegaly, postsurgical otherwise unremarkable. Ext: No clubbing edema or cyanosis. Neuro: Alert and oriented 3 focal neurologic deficits. Psych: Alert, oriented, no gross focal neurologic deficits. Normal mood, blunt affect and normal mental status examination - Labs CBC & Chem 7: 03/02/20 02:21 03/02/20 02:21 Labs: Abnormal Lab Results - Last 24 Hours (Table) 03/01/20 03/01/20 03/02/20 Range/Units 16:53 20:29 02:21 WBC 13.9 H (3.8-10.6) k/uL Hgb 10.3 L (11.4-16.0) gm/dL Hct 32.1 L (34.0-46.0) % MCV 78.9 L (80.0-100.0) fL Neutrophils # 10.5 H (1.3-7.7) k/uL Sodium (137-145) mmol/L Glucose (74-99) mg/dL POC Glucose (mg/dL) 118 H 129 H (75-99) mg/dL Calcium (8.4-10.2) mg/dL 03/02/20 Range/Units 02:21 WBC (3.8-10.6) k/uL Hgb (11.4-16.0) gm/dL Hct (34.0-46.0) % MCV (80.0-100.0) fL Neutrophils # (1.3-7.7) k/uL Sodium 131 L (137-145) mmol/L Glucose 118 H (74-99) mg/dL POC Glucose (mg/dL) (75-99) mg/dL Calcium 7.9 L (8.4-10.2) mg/dL Microbiology - Last 24 Hours (Table) 02/27/20 08:28 Blood Culture - Preliminary Blood No Growth after 96 hours 02/27/20 09:09 Blood Culture - Preliminary Blood No Growth after 96 hours Assessment and Plan Assessment: Impression: Status post cholecystectomy/laparoscopic cholecystectomy postoperative day #2 Acute gallstone pancreatitis. Acute cholecystitis and possible cholangitis Acute gram-negative sepsis with Klebsiella pneumoniae infection. Sepsis with secondary hypotension. Resolved. Lactic acidosis secondary to above resolved. Coumadin toxicity on presentation patient has been on Coumadin for mechanical aortic valve. History of aortic valve replacement/mechanical valve. History of hypothyroidism. Acute hypoxic respiratory failure secondary to bibasilar atelectasis and small effusions, doubt pneumonia. Non-anion gap metabolic acidosis, resolved. Recommendation: Continue IV fluid. Continue antibiotics/Zosyn. Continue heparin and transitioned to Coumadin. Incentive spirometry Ambulate. Continue pain control. Transfer patient to a medical surgical floor. We'll continue to follow Time with Patient: Less than 30
--- NOTE | 2020-03-02 14:58 | PN ---
PROGRESS NOTE Ibis is a 69-year-old lady that is admitted to hospital with ascending cholangitis, has a mechanical aortic valve. We restarted her heparin yesterday and will give her a dose of Coumadin today. On exam, patient is comfortable at rest. Vital signs are stable. Chest exam reveals good air entry bilaterally. Heart exam reveals first and second heart sounds. Mechanical heart sound is heard. Abdomen is soft. Exam of extremities did not reveal any edema. Peripheral pulses are felt. ASSESSMENT: 1. Status post mechanical aortic valve replacement. 2. Ascending cholangitis. Resume heparin. Resume Coumadin. Follow the INR. MMODL / IJN: [id number] /
[2020-03-02] MEDS ORDERED: HYDROcodone/APAP 7.5-325MG 1 EACH TAB PO PRN (15:03)
[2020-03-02] MEDS: FUROSEMIDE 10 MG/ML 4 ML VIAL IV SCH ×2 (15:07→20:03)
[2020-03-02] MEDS ORDERED: WARFARIN 5 MG TAB PO ONE (18:00)
[2020-03-02 18:48] VITALS: RESP 18
[2020-03-02] MEDS: SODIUM CHLORIDE 0.9% 1,000 ML IV SCH (19:00)
[2020-03-02] MEDS ORDERED: ACETAMINOPHEN TAB 325 MG TAB PO PRN (20:48)
[2020-03-03] MEDS: IPRATROPIUM-ALBUTEROL 3 ML NEB INHALATION SCH ×3 (07:29→15:29)
[2020-03-03 08:15] VITALS: TEMP 97.9
[2020-03-03] MEDS: FUROSEMIDE 10 MG/ML 4 ML VIAL IV SCH (08:43)
[2020-03-03] MEDS: THYROID, PORK 30 MG TAB PO SCH (08:43)
[2020-03-03] MEDS: POLYETHYLENE GLYCOL 3350 17 GM POWD.PACK PO SCH (08:43)
[2020-03-03] MEDS: PANTOPRAZOLE 40 MG TABLET PO SCH (08:43)
[2020-03-03] MEDS: MAG HYDROX/AL HYDROX/SIMETH 30 ML, LIDOCAINE VISCOUS 30 ML, diphenhydrAMINE ELIXIR 75 M... PO SCH ×4 (08:54)
[2020-03-03 09:52] LABS: Basophils # (A) 0.2 k/uL (0-0.2); Basophils % (A) 1 %; Eosinophils # (A) 0.2 k/uL (0-0.7); Eosinophils % (A) 2 %; HCT 40.7 % (34.0-46.0); HGB 12.4 gm/dL (11.4-16.0); Hypochromasia Slight; Lymphocytes # (A) 1.6 k/uL (1.0-4.8); Lymphocytes % (A) 11 %; MCH 24.2 pg (25.0-35.0); MCHC 30.6 g/dL (31.0-37.0); Mean Platelet Volume 7.6; Monocytes # (A) 0.5 k/uL (0-1.0); Monocytes % (A) 3 %; Neutrophils # (A) 11.7 k/uL (1.3-7.7); Neutrophils % (A) 80 %; Platelet Count 343 k/uL (150-450); RBC 5.15 m/uL (3.80-5.40); WBC 14.6 k/uL (3.8-10.6)
[2020-03-03 09:59] LABS: Prothrombin Time 10.6 sec (9.0-12.0)
[2020-03-03 10:53] LABS: African American GFR (CKD) >90 (>60 ml/min/1.73 sqM); Anion Gap 14 mmol/L; Blood Urea Nitrogen 10 mg/dL (7-17); Calcium 9.2 mg/dL (8.4-10.2); Carbon Dioxide 24 mmol/L (22-30); Chloride 97 mmol/L (98-107); Glucose 139 mg/dL (74-99); Non-African American GFR(CKD) >90 (>60 ml/min/1.73 sqM); Potassium 3.5 mmol/L (3.5-5.1); Sodium 135 mmol/L (137-145)
[2020-03-03] MEDS ORDERED: Magnesium Replacement Protocol 1 EACH MISC MISCELLANE PRN (11:27)
[2020-03-03] MEDS ORDERED: Potassium Replacement Protocol 1 EACH MISC MISCELLANE PRN (11:27)
--- NOTE | 2020-03-03 11:28 | P.PN ---
Progress Note - Text Progress Note Date: 03/03/20 The patient feels well. She has minimal movement abdominal pain. On exam vessels are stable. Abdomen soft. Status post laparoscopically cholecystectomy for gallstone hepatitis. Patient will most likely discharged home today. She'll follow myself in one week.
[2020-03-03] MEDS: HEPARIN SOD,PORK IN 0.45% NACL 25,000 UNIT in 0.45% NACL 1 250ML.BAG IV SCH (12:12)
[2020-03-03] MEDS: MAGNESIUM SULFATE-D5W PMX 1 GM in DEXTROSE/WATER 1 100ML.BAG IVPB SCH ×2 (12:13→13:38)
[2020-03-03] MEDS: POTASSIUM CHLORIDE ER 20 MEQ TAB.ER PO SCH ×2 (12:14→13:38)
--- NOTE | 2020-03-03 12:19 | P.PN ---
Subjective Progress Note Date: 03/03/20 Principal diagnosis: Acute gallstone pancreatitis and acute cholecystitis Patient is seen today 03/03/2020 in follow-up on the regular medical floor. She is awake and alert in no acute distress. Currently resting comfortably in bed. Denies any shortness of breath, cough or congestion. She is maintaining O2 saturations in the 90s on room air. She's been afebrile. Hemodynamically stable. She is status post 3 units of fresh frozen plasma this admission. Initial blood culture positive for Klebsiella pneumoniae. Follow-up blood cultures revealing no growth. White count 14.6. Hemoglobin 12.4. Sodium 135. Potassium 3.5. Creatinine 0.50. INR 1.0. Remains on IV diuretics. Continued on IV heparin. Warfarin has been initiated for tonight. Working well with the incentive spirometer. Objective - Vital Signs Vital signs: Vital Signs Temp 97.9 F 03/03/20 07:00 Pulse 95 03/03/20 07:00 Resp 18 03/03/20 07:00 BP 110/67 03/03/20 07:00 Pulse Ox 92 L 03/03/20 07:00 Intake & Output 03/02/20 03/03/20 03/03/20 18:59 06:59 18:59 Intake Total 774.937 214.155 Output Total 2200 3100 Balance -1425.063 -2885.845 Intake: IV 160 Sodium Chloride 0.9% 1, 160 000 ml @ 40 mls/hr IV . Q24H [facility] Rx#:[id number] Intake, IV Titration 114.937 214.155 Amount Heparin Sod,Pork in 0.45% 114.937 214.155 NaCl 25,000 unit In 0.45 % NaCl 1 250ml.bag @ 9.96 UNITS/KG/HR 10 mls/hr IV .Q24H [facility] Rx#:[id number] Oral 500 Output: Urine 2200 3100 Other: Voiding Method Indwelling Catheter Indwelling Catheter Indwelling Catheter # Bowel Movements 1 - Exam GENERAL EXAM: Alert, active, pleasant 69-year-old female patient, on room air, comfortable in no apparent distress. HEAD: Normocephalic. EYES: Normal reaction of pupils, equal size. NOSE: Clear with pink turbinates. THROAT: No erythema or exudates. NECK: No masses, no JVD. CHEST: No chest wall deformity. LUNGS: Equal air entry with no crackles, wheeze, rhonchi or dullness. CVS: S1 and S2 normal with no audible murmur, regular rhythm. ABDOMEN: Incisions clean dry well approximated. No hepatosplenomegaly, normal bowel sounds, no guarding or rigidity. SPINE: No scoliosis or deformity SKIN: No rashes CENTRAL NERVOUS SYSTEM: No focal deficits, tone is normal in all 4 extremities. EXTREMITIES: There is no peripheral edema. No clubbing, no cyanosis. Peripheral pulses are intact. - Labs CBC & Chem 7: 03/03/20 09:28 03/03/20 09:28 Labs: Abnormal Lab Results - Last 24 Hours (Table) 03/02/20 03/03/20 03/03/20 Range/Units 16:00 09:28 09:28 WBC 14.6 H (3.8-10.6) k/uL MCV 79.0 L (80.0-100.0) fL MCH 24.2 L (25.0-35.0) pg MCHC 30.6 L (31.0-37.0) g/dL Neutrophils # 11.7 H (1.3-7.7) k/uL APTT 44.1 H 44.0 H (22.0-30.0) sec Sodium (137-145) mmol/L Chloride (98-107) mmol/L Creatinine (0.52-1.04) mg/dL Glucose (74-99) mg/dL 03/03/20 Range/Units 09:28 WBC (3.8-10.6) k/uL MCV (80.0-100.0) fL MCH (25.0-35.0) pg MCHC (31.0-37.0) g/dL Neutrophils # (1.3-7.7) k/uL APTT (22.0-30.0) sec Sodium 135 L (137-145) mmol/L Chloride 97 L (98-107) mmol/L Creatinine 0.50 L (0.52-1.04) mg/dL Glucose 139 H (74-99) mg/dL Microbiology - Last 24 Hours (Table) 02/27/20 08:28 Blood Culture - Preliminary Blood No Growth after 120 hours 02/27/20 09:09 Blood Culture - Preliminary Blood No Growth after 120 hours Assessment and Plan Assessment: Status post cholecystectomy/laparoscopic cholecystectomy postoperative day #3 Acute gallstone pancreatitis. Acute cholecystitis and possible cholangitis Acute gram-negative sepsis with Klebsiella pneumoniae infection. Sepsis with secondary hypotension. Resolved. Lactic acidosis secondary to above resolved. Coumadin toxicity on presentation patient has been on Coumadin for mechanical aortic valve. INR 1.0 To be resumed tonight. Remains on heparin drip. History of aortic valve replacement/mechanical valve. History of hypothyroidism. Acute hypoxic respiratory failure secondary to bibasilar atelectasis and small effusions, doubt pneumonia. Non-anion gap metabolic acidosis, resolved Plan: The patient was seen and evaluated by Dr. Perez She is stable from the pulmonary and critical care standpoint Continue to work with the incentive spirometer Increase activity as tolerated Home once cleared surgically I, the cosigning physician, performed a history & physical examination of the patient. Lungs sounds are clear. Maintaining good O2 saturations in the 90s on room air. I discussed the assessment and plan of care with my nurse practitioner, Cynthia Rivera. I attest to the above note as dictated by her.
--- NOTE | 2020-03-03 12:28 | P.PN ---
Subjective This is a pleasant 69-year-old female past medical history significant for valvular heart disease status post mechanical aortic valve replacement x2 secondary to congenital heart disease maintained on warfarin and dyslipidemia. She follows with a infectious disease technician in [place]. She is in [place] for the summer. She is status post laparoscopic cholecystectomy. She is currently maintained on oral Coumadin along with heparin infusion for bridging. INR today is 1.0. WBC 14.6, hemoglobin 12.4, platelets 343, sodium 135, potassium 3.5, c reatinine 0.5. Blood pressure 110/67 heart rate 95 afebrile maintaining oxygen saturation on room air. She is seen and examined sitting up in the chair in no acute distress. She is quite anxious to be discharged home. She has no chest pain, dizziness, shortness of breath or palpitations. GENERAL: Well-appearing, well-nourished and in no acute distress. NECK: Supple without JVD or thyromegaly. LUNGS: Breath sounds clear to auscultation bilaterally. Respiration equal and unlabored. No wheezes, rales or rhonchi. HEART: Regular rate and rhythm with mechanical click at the base, rubs or ghotra ps. S1 and S2 heard. EXTREMITIES: Normal range of motion, no edema. No clubbing or cyanosis. Periph eral pulses intact. ASSESSMENT Status post laparoscopic cholecystectomy History of mechanical aortic valve replacement maintained on Coumadin PLAN Continue to bridge for therapeutic INR of 2.5-3.5. If surgically stable for discharge she can do lovenox bridging at home. She has done this in the past and is familiar with the process. Lovenox dosing is 90 mg BID along with her previous warfarin dosing. She does her warfarin dosing and coagulation management via a portable device in her home and telephones her infectious disease technician office in [place]. Nurse Practitioner note has been reviewed, I agree with a documented findings and plan of care. Patient was seen and examined. Objective - Vital Signs Vital signs: Vital Signs Temp 97.9 F 03/03/20 07:00 Pulse 95 03/03/20 07:00 Resp 18 03/03/20 07:00 BP 110/67 03/03/20 07:00 Pulse Ox 92 L 03/03/20 07:00 Intake & Output 03/02/20 03/03/20 03/03/20 18:59 06:59 18:59 Intake Total 774.937 214.155 Output Total 2200 3100 Balance -1425.063 -2885.845 Intake: IV 160 Sodium Chloride 0.9% 1, 160 000 ml @ 40 mls/hr IV . Q24H [facility] Rx#:[id number] Intake, IV Titration 114.937 214.155 Amount Heparin Sod,Pork in 0.45% 114.937 214.155 NaCl 25,000 unit In 0.45 % NaCl 1 250ml.bag @ 9.96 UNITS/KG/HR 10 mls/hr IV .Q24H [facility] Rx#:[id number] Oral 500 Output: Urine 2200 3100 Other: Voiding Method Indwelling Catheter Indwelling Catheter Indwelling Catheter # Bowel Movements 1 - Labs CBC & Chem 7: 03/03/20 09:28 03/03/20 09:28 Labs: Abnormal Lab Results - Last 24 Hours (Table) 03/02/20 03/03/20 03/03/20 Range/Units 16:00 09:28 09:28 WBC 14.6 H (3.8-10.6) k/uL MCV 79.0 L (80.0-100.0) fL MCH 24.2 L (25.0-35.0) pg MCHC 30.6 L (31.0-37.0) g/dL Neutrophils # 11.7 H (1.3-7.7) k/uL APTT 44.1 H 44.0 H (22.0-30.0) sec Sodium (137-145) mmol/L Chloride (98-107) mmol/L Creatinine (0.52-1.04) mg/dL Glucose (74-99) mg/dL 03/03/20 Range/Units 09:28 WBC (3.8-10.6) k/uL MCV (80.0-100.0) fL MCH (25.0-35.0) pg MCHC (31.0-37.0) g/dL Neutrophils # (1.3-7.7) k/uL APTT (22.0-30.0) sec Sodium 135 L (137-145) mmol/L Chloride 97 L (98-107) mmol/L Creatinine 0.50 L (0.52-1.04) mg/dL Glucose 139 H (74-99) mg/dL Microbiology - Last 24 Hours (Table) 02/27/20 08:28 Blood Culture - Preliminary Blood No Growth after 120 hours 02/27/20 09:09 Blood Culture - Preliminary Blood No Growth after 120 hours
--- NOTE | 2020-03-03 13:53 | P.PN ---
Subjective Progress Note Date: 03/03/20 Principal diagnosis: Abdominal discomfort Patient was seen and examined. No acute events overnight. Underwent laparoscopic cholecystectomy POD 3. Patient reports bowel movement yesterday. Currently on room air satting low 90s. INR continues to be subtherapeutic. Patient reports well-controlled abdominal pain. She denies any chest, shortness of breath or palpitations. No nausea or vomiting. No fever or chills. Requesting discharge today. Objective - Vital Signs Vital signs: Vital Signs Temp 97.9 F 03/03/20 07:00 Pulse 95 03/03/20 07:00 Resp 18 03/03/20 07:00 BP 110/67 03/03/20 07:00 Pulse Ox 92 L 03/03/20 07:00 Intake & Output 03/02/20 03/03/20 03/03/20 18:59 06:59 18:59 Intake Total 774.937 214.155 250 Output Total 2200 3100 Balance -1425.063 -2885.845 250 Intake: IV 160 Sodium Chloride 0.9% 1, 160 000 ml @ 40 mls/hr IV . Q24H [facility] Rx#:[id number] Intake, IV Titration 114.937 214.155 250 Amount Heparin Sod,Pork in 0.45% 114.937 214.155 250 NaCl 25,000 unit In 0.45 % NaCl 1 250ml.bag @ 9.96 UNITS/KG/HR 10 mls/hr IV .Q24H [facility] Rx#:[id number] Oral 500 Output: Urine 2200 3100 Other: Voiding Method Indwelling Catheter Indwelling Catheter Indwelling Catheter # Bowel Movements 1 - Exam General: [Ill-appearing], [no distress], [appears at stated age] Derm: [warm], [dry] Head: [atraumatic], [normocephalic], [symmetric] Eyes: [EOMI], [no lid lag], [anicteric sclera] Mouth: [no lip lesion], [mucus membranes moist] Cardiovascular: [S1S2 reg], [mechanical click noted, tachycardia], [positive DP pulse bilateral], Lungs: [Decreased breath sounds bilateral], [no rhonchi, no rales] , [no ac cessory muscle use] Abdominal: [soft], [mild tenderness at the site of laparoscopic scar, decreased bowel sounds], [no guarding], [no appreciable organomegaly] Ext: [no gross muscle atrophy], [no edema], [no contractures] Neuro: [no focal neuro deficits] Psych: [Alert and oriented 3 but flat affect] - Labs CBC & Chem 7: 03/03/20 09:28 03/03/20 09:28 Labs: Abnormal Lab Results - Last 24 Hours (Table) 03/02/20 03/03/20 03/03/20 Range/Units 16:00 09:28 09:28 WBC 14.6 H (3.8-10.6) k/uL MCV 79.0 L (80.0-100.0) fL MCH 24.2 L (25.0-35.0) pg MCHC 30.6 L (31.0-37.0) g/dL Neutrophils # 11.7 H (1.3-7.7) k/uL APTT 44.1 H 44.0 H (22.0-30.0) sec Sodium (137-145) mmol/L Chloride (98-107) mmol/L Creatinine (0.52-1.04) mg/dL Glucose (74-99) mg/dL 03/03/20 Range/Units 09:28 WBC (3.8-10.6) k/uL MCV (80.0-100.0) fL MCH (25.0-35.0) pg MCHC (31.0-37.0) g/dL Neutrophils # (1.3-7.7) k/uL APTT (22.0-30.0) sec Sodium 135 L (137-145) mmol/L Chloride 97 L (98-107) mmol/L Creatinine 0.50 L (0.52-1.04) mg/dL Glucose 139 H (74-99) mg/dL Microbiology - Last 24 Hours (Table) 02/27/20 08:28 Blood Culture - Preliminary Blood No Growth after 120 hours 02/27/20 09:09 Blood Culture - Preliminary Blood No Growth after 120 hours Assessment and Plan Assessment: Hypoxia with pleural effusion, improved -Chest x-ray showing bilateral infiltrate with effusion -Attempt to wean down O2 -Continue Lasix 40 mg IV twice a day -6 minute walk test Acute Cholecystitis/Cholangitis with septic shock, gallstone pancreatitis and klebsiella bacteremia, S/P CBD stent - GI consult: Status post ERCP with CBD stone removal - General surgery consult: Status post laparoscopic cholecystectomy POD 3 - Zosyn - IV fluids - Advance to low-fat diet Leukocytosis - Likely reactive from surgery - Continue to monitor for any signs of infection Hyponatremia - Sodium 135 likely related to dehydration - Continue IVF and repeat BMP tomorrow morning Acute liver failure likely secondary to obstruction due to gallstones - Improving - GI recommendations appreciated - Liver ultrasound does show mildly heterogeneous liver Aortic valve replacement secondary to congenital heart disease - Cardiology recommendations appreciated - Echo with normally functioning mechanical aortic valve - Reversed Coumadin -Continue heparin drip and bridge to Coumadin, can possibly be discharged in stable to get Lovenox through insurance Thrombocytopenia, improving - Follow CBC - reactive Hypothyroidism -Thyroid medication Coumadin coagulopathy with supratherapeutic INR, Mechanical aortic valve, resolved Hypomagnesemia, resolved Hyponatremia, resolved Hypokalemia, resolved Metabolic acidosis secondary to lactic acidosis, resolved Acute kidney injury versus chronic kidney disease, resolved Lactic acidosis secondary to sepsis and liver dysfunction, resolved Hypoxia secondary to pleural effusion, resolved [Patient cleared by general surgery for discharge. Currently on heparin drip with Coumadin yesterday. Started on Lasix for possible volume overload. Discussed with nursing, 6 minute walk test ordered. Discussed with social work, attempt to get Lovenox. We'll discharge the patient home if she is able to get Lovenox and is able to ambulate comfortably maintaining oxygenation.]
[2020-03-03] MEDS ORDERED: ENOXAPARIN 100 MG/ML SYRINGE SQ STA (15:11)
[2020-03-03 15:17] VITALS: BP 107/61; PULSE 85
[2020-03-03] MEDS ORDERED: WARFARIN 5 MG TAB PO SCH (18:00)
[2020-03-03] MEDS ORDERED: WARFARIN 2.5 MG TAB PO ONE (18:00)
== END 2020-03-03 15:56 | disposition home health service (06) | DRG 853 ==
LOC: EC 13:39 → 2SICU 16:00 → 4SSUR 03-02 16:52
PROVIDERS: ADMIT Internal Medicine; ATTEND Internal Medicine
PROC: 0F798DZ Dilation of Common Bile Duct with Intraluminal Device, Via Natural or Artificial Opening Endoscopic (ICD-10-PCS; 2020-02-24)
PROC: 02HV33Z Insertion of Infusion Device into Superior Vena Cava, Percutaneous Approach (ICD-10-PCS; 2020-02-24)
PROC: 0FC98ZZ Extirpation of Matter from Common Bile Duct, Via Natural or Artificial Opening Endoscopic (ICD-10-PCS; 2020-02-28)
PROC: 0F798ZZ Dilation of Common Bile Duct, Via Natural or Artificial Opening Endoscopic (ICD-10-PCS; 2020-02-28)
PROC: 0FPB8DZ Removal of Intraluminal Device from Hepatobiliary Duct, Via Natural or Artificial Opening Endoscopic (ICD-10-PCS; 2020-02-28)
PROC: 0FT44ZZ Resection of Gallbladder, Percutaneous Endoscopic Approach (ICD-10-PCS; principal; 2020-02-29 11:25)
DX: A41.59 Other Gram-negative sepsis (principal); K85.10 Biliary acute pancreatitis without necrosis or infection; R65.21 Severe sepsis with septic shock; K72.00 Acute and subacute hepatic failure without coma; J96.01 Acute respiratory failure with hypoxia; E87.1 Hypo-osmolality and hyponatremia; E87.2 Acidosis; D68.9 Coagulation defect, unspecified; K80.62 Calculus of gallbladder and bile duct with acute cholecystitis without obstruction; J98.11 Atelectasis; N17.9 Acute kidney failure, unspecified; J90 Pleural effusion, not elsewhere classified; E87.70 Fluid overload, unspecified; B96.1 Klebsiella pneumoniae [K. pneumoniae] as the cause of diseases classified elsewhere; I49.3 Ventricular premature depolarization; E03.9 Hypothyroidism, unspecified; E78.5 Hyperlipidemia, unspecified; E83.42 Hypomagnesemia; E86.0 Dehydration; E87.6 Hypokalemia; D69.6 Thrombocytopenia, unspecified; T45.515A Adverse effect of anticoagulants, initial encounter; N18.9 Chronic kidney disease, unspecified; Z95.2 Presence of prosthetic heart valve; Z95.1 Presence of aortocoronary bypass graft; Z98.890 Other specified postprocedural states; Z80.52 Family history of malignant neoplasm of bladder; Z82.49 Family history of ischemic heart disease and other diseases of the circulatory system; Z83.0 Family history of human immunodeficiency virus [HIV] disease; Z90.710 Acquired absence of both cervix and uterus; Z80.6 Family history of leukemia; Z79.899 Other long term (current) drug therapy; Z79.01 Long term (current) use of anticoagulants; Z11.59 Encounter for screening for other viral diseases
CPT/HCPCS: 36415; 36430; 36600; 43262; 43274; 43275; 71045; 74018; 74176; 74177; 74330; 76705; 80048; 80053; 81001; 82150; 82247; 82805; 83605; 83690; 83735; 84100; 84132; 84450; 84460; 84484; 85025; 85027; 85610; 85730; 86850; 86900; 86901; 87040; 87070; 87077; 87086; 87186; 87205; 88304; 93005; 93306; 94002; 94003; 94640; 96361; 96365; 96366; 96367; 96368; 96375; 99291